=== PATIENT | female | born 1975 | race African-American/Black ===

== ENCOUNTER 2021-08-04 06:07 | Emergency (ER) | payer OTHER, SELFPAY ==
--- NOTE | ~2021-08-04 | US_ITS ---
EXAMINATION: US VENOUS ULTRASOUND WITH DOPPLER LOWER EXTREMITY, LEFT CLINICAL INFORMATION: Pain and swelling COMPARISON: None TECHNIQUE: Ultrasound of the deep veins is performed from the hip to the calf with compression sonography and color and pulse Doppler assessment. Spectral analysis with color-flow imaging is performed. FINDINGS: There is normal venous compression and respiratory variation and augmented flow. The visualized common femoral vein, superficial femoral vein, profunda femoral vein, popliteal vein, and the trifurcation region shows no evidence of deep venous thrombosis. There is a large popliteal fossa cyst and knee joint effusion. US/US venous duplex LE LT IMPRESSION: No acute DVT demonstrated in the left lower extremity. Large popliteal fossa cyst and left knee effusion.
[2021-08-04 06:20] VITALS: BP 198/107; PULSE 102; RESP 22; TEMP 36.7; O2SAT 98; BMI 35.5
--- NOTE | 2021-08-04 06:34 | ED_ITS ---
HPI - Extremity Problem General Chief complaint: Extremity Problem Stated complaint: high gastric levels, history of gout Time Seen by Provider: 08/04/21 06:34 Source: patient Mode of arrival: ambulatory Limitations: no limitations History of Present Illness MD Complaint: extremity pain, joint swelling and joint pain Onset (ago): day(s) (several) Pain Consistency: constant Location: left, knee and other (ankle) Quality: aching and dull Radiation: proximal Relieving factors: immobilization Exacerbating factors: weight bearing and palpation Associated symptoms: denies other symptoms Context: other (hx of gout, recently completed indomethacin treatment for gout) Related Data Previous Rx's Medication Instructions Recorded hydrocodone 5 mg-acetaminophen 325 1 tab PO Q6H PRN #12 tab 08/04/21 mg tablet prednisone 20 mg tablet 40 mg PO DAILY 4 Days #8 tab 08/04/21 Allergies Allergy/AdvReac Type Severity Reaction Status Date / Time No Known Allergies Allergy Verified 08/04/21 06:25 Review of Systems Review of Systems: Constitutional : No Fever, No Chills ENT/Mouth : No Ear Pain, No Hoarseness, No sore throat Eyes: No Eye Pain, No Swelling, No Redness, No Foreign Body Cardiovascular : No Chest Pain, No SOB Respiratory : No Cough, No Dyspnea Gastrointestinal : No Nausea, No Vomiting, No Diarrhea, No abdominal Pain Genitourinary : No Dysuria, No Hematuria Musculoskeletal : positive joint pain, No Myalgias, pos Joint Swelling Skin : No Skin lacerations, No rash Neuro : No Weakness, No Numbness, No Loss of Consciousness, No Dizziness, No Headache Psych : No Anxiety/Panic, No Depression Heme/Lymph: no easy bruising, no Lymphadenopathy Endocrine : No Polyuria, No Polydipsia All other systems reviewed and are negative [facility] Past Medical History Attestation statement: The following information was validated with the patient. Medical History Gout HTN (hypertension) Social History Social History (Updated 08/04/21 @ 06:51 by Karlie Pastor DO) Alcohol intake: never Patient Tobacco Use Status: Never used Tobacco Use of substances other than those prescribed or required for medical reasons: Yes Substance Use Type: Marijuana Advance Directives: No Advance Directives Information Provided: No Patient : No Physical Exam Vital Signs: Vital Signs: Last Vital Signs Temp 98.6 F 08/04/21 07:32 Pulse 73 08/04/21 07:32 Resp 16 08/04/21 07:32 BP 187/104 H 08/04/21 07:32 Pulse Ox 100 08/04/21 07:32 BMI result Body Mass Index 35.5 Appearance: Alert. Oriented X3. No acute distress. Eyes: Pupils equal, round and reactive to light. ENT: Pharynx normal. Neck: Normal inspection. Neck supple. CVS: Normal heart rate and rhythm. Pulses normal. Respiratory: No respiratory distress. Breath sounds normal. Abdomen: Soft and nontender. Skin: Skin warm and dry. Normal skin color. Normal skin turgor. Extremities: L knee mild to moderate effusion leg itself has non pitting edema but some swelling around ankle as well - distal NV intact, no warmth erythema Neuro: Oriented X 3. No motor deficit. No sensory deficit. Course Course Course Narrative: US negative given crutches and ny wrap does not want care for HTN MDM - Extremity (Nontraumatic) MDM Narrative Medical decision making narrative: 46 yo patient with hx of HTN, gout - here with c/o L knee and ankle pain though knee has the effusion her leg itself is mildly swollen will need US to r/o DVT - completed indomethacin which did not help. At this time she will need prednisone given suspected gout. There is no fevers, no erythema, no warmth, can range knee doubt septic joint/cellulitis at this time. Discharge Plan Discharge Clinical Impression: Gout, Effusion of knee, HTN (hypertension) Patient Disposition: Home, Self-Care Instructions: Gout (ED), Swollen Knee Joint (ED), Hypertension (ED) Additional Instructions: return to ED for any worsening symptoms or concerns ny wrap for 5 days, crutches as needed you need to see your doctor next week about your high blood pressure Prescriptions: New hydrocodone-acetaminophen 5-325 mg tablet 1 tab PO Q6H PRN (Reason: pain) Qty: 12 0RF prednisone 20 mg tablet 40 mg PO DAILY 4 Days Qty: 8 0RF Referrals: Rima Espinoza MD [Primary Care Provider] - 3 days Stand Alone Forms: Work/School Release
[2021-08-04 07:32] VITALS: BP 187/104; PULSE 73; RESP 16; TEMP 37; O2SAT 100
[2021-08-04] MEDS: predniSONE 20 MG TABLET 60 MG PO (07:37)
--- NOTE | 2021-08-04 07:54 | PC.NURSE ---
BP 187/104 MD aware. pt states she has had a in the family and is aware of the BP/. DOes not want to treat high BP.
== END 2021-08-04 09:48 | disposition home or self-care (01) ==
PROVIDERS: Emergency Provider Emergency Medicine; PCP Internal Medicine
DX: M10.9 Gout, unspecified (principal); M25.462 Effusion, left knee; R60.0 Localized edema; I10 Essential (primary) hypertension; Z79.899 Other long term (current) drug therapy
CPT/HCPCS: 93971; 99284

== ENCOUNTER 2021-10-08 05:39 | Inpatient (IN) | payer OTHER, SELFPAY ==
--- NOTE | 2021-10-08 | ECG_ITS ---
Test Reason : ? stroke Blood Pressure : / mmHG Vent. Rate : 065 BPM Atrial Rate : 065 BPM P-R Int : 208 ms QRS Dur : 090 ms QT Int : 420 ms P-R-T Axes : 023 -13 -04 degrees QTc Int : 436 ms Normal sinus rhythm Minimal voltage criteria for LVH, may be normal variant ( R in aVL ) Cannot rule out Anterior infarct , age undetermined Abnormal ECG No previous ECGs available Referred By: Generic ED Physician Electronically Signed By:Gurinder Evans
--- NOTE | ~2021-10-08 | CT_ITS ---
EXAMINATION: CT HEAD WITHOUT CONTRAST (STROKE PROTOCOL) CLINICAL INFORMATION: Stroke protocol. COMPARISON: None TECHNIQUE: Contiguous axial imaging was performed from the skull base to vertex without intravenous administration of contrast. This CT examination was performed using dose optimization techniques as appropriate, variously including the following: *Automated exposure control *Adjustment of mA and/or kV according to patient size (this includes techniques or standardized protocols for targeted exams where dose is matched to indication/reason for exam; i.e. extremities or head) *Use of iterative reconstruction technique DLP: 733 mGy-cm FINDINGS: There is no intracranial hemorrhage, hematoma, or extra-axial fluid collection. The ventricles are normal in size. There is no hydrocephalus, edema, or mass effect. The adair-white matter differentiation appears symmetric. There is no acute infarct or mass lesion. The calvarium appears intact. There is no pneumocephalus or orbital emphysema. The visualized sinuses and middle ears and mastoid air cells show no significant mucosal thickening. There are no air-fluid levels. CT/CT head for stroke IMPRESSION: No acute intracranial pathology. This critical result was discussed with Dr Nicola Estes at 10/08/2021 6:25 AM and it was ascertained that the content and urgency of the report was understood at the time of direct communication.
--- NOTE | ~2021-10-08 | MR_ITS ---
EXAMINATION: MRI OF THE BRAIN WITHOUT CONTRAST CLINICAL INFORMATION: Right arm heaviness, off balance. Assess for stroke. COMPARISON: CT scan of the head and CTA of the head and neck earlier 10/08/2020.. TECHNIQUE: MRI of the brain was obtained using routine sequences without contrast. FINDINGS: There is an area of restricted diffusion in the left periventricular white matter, consistent with an acute infarct. There is no evidence of hemorrhagic transformation. This region has mildly increased T2/flair signal. No other acute infarcts are demonstrated. No mass effect or midline shift is seen. The ventricles and sulci are normal in size. There are multiple scattered foci of hyperintense T2 and place signal in the periventricular subcortical white matter, which are nonspecific and may be consistent sequelae of chronic microvascular ischemic disease, vasculitis or migraine. No extra-axial fluid collections are seen. The brainstem and cerebellum are normal. No pathologic magnetic susceptibility artifact is identified on the gradient refocused acquisition. The craniovertebral junction and marrow signal are normal. There is a partially empty sella. The major intracranial flow-voids at the level of the [place] are preserved. The dural venous sinus flow-voids are maintained. The mastoid air cells and paranasal sinuses are well-aerated. MR/MR head/brain wo con IMPRESSION: 1. There is a small area of acute infarction in the left periventricular white matter. There is no evidence of hemorrhagic transformation. 2. There are no masses. There are scattered white matter changes as described above. 3. This critical result was discussed with Nilesh Shaw by telephone on 10/08/2021 at 12:40 PM and it was ascertained that the content and urgency of the report was understood at the time of direct communication.
--- NOTE | ~2021-10-08 | CT_ITS ---
EXAMINATION: CTA NECK WITH CONTRAST (STROKE) CTA BRAIN WITH CONTRAST (STROKE) CLINICAL INFORMATION: Right sided weakness. COMPARISON: None TECHNIQUE: Test bolus sequences followed by intravenous administration 100 mL of Omnipaque 300 intravenous contrast. Helical imaging was performed in the axial plane from the mediastinum to the skull vertex. Delayed postcontrast imaging of the head was also performed. The data was processed at the apparatus engineering technologist's workstation for generation of MIP sequences. Three-dimensional volume rendered reformatted images were also generated at an offline 3-D workstation. This CT examination was performed using dose optimization techniques as appropriate, variously including the following: *Automated exposure control *Adjustment of mA and/or kV according to patient size (this includes techniques or standardized protocols for targeted exams where dose is matched to indication/reason for exam; i.e. extremities or head) *Use of iterative reconstruction technique The degree of stenosis determined by NASCET criteria. DLP: 1537 mGy-cm FINDINGS: SOFT TISSUES AND LUNG APICES: No overt abnormality is appreciated. CTA NECK: The aortic arch has a classic configuration and the major arch vessel origins are non-stenotic. The vertebral arteries are co-dominant and both vertebral origins are widely patent. Both common carotid arteries are normal in course and caliber. The left internal carotid artery demonstrates mild atherosclerotic plaque without significant stenosis. CTA HEAD: There is normal opacification of the major intracranial vessels. No acute proximal large vessel occlusion, focal flow-limiting stenosis, or saccular intracranial aneurysm is identified. No abnormal parenchymal enhancement or regional oligemia is visualized. 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 HEAD (delayed): No intracranial mass, intercerebral edema, hemorrhage, or midline shift is evident. The ventricles and sulci are stable in size and configuration. No extra-axial collections are appreciated. No pathologic intracranial enhancement. Dural sinuses are patent. The paranasal sinuses are well-aerated and clear. CT/CT angio head neck stroke IMPRESSION: No hemodynamically significant stenosis or large vessel occlusion within the intracranial or extracranial arterial vasculature. This critical result was discussed with Dr Nicola Estes at 10/08/2021 6:25 AM and it was ascertained that the content and urgency of the report was understood at the time of direct communication.
[2021-10-08 05:43] VITALS: BP 183/109; BP 200/110; PULSE 64; PULSE 78; RESP 16; TEMP 37; O2SAT 100; O2SAT 98; BMI 36.3
--- NOTE | 2021-10-08 05:51 | ED_ITS ---
HPI - General Adult General Chief complaint: Stroke Stated complaint: arm heaviness, unsteady gait, symptoms started 11p Time Seen by Provider: 10/08/21 05:48 Source: patient Mode of arrival: EMS Limitations: no limitations History of Present Illness HPI narrative: This is a 46-year-old female with history of hypertension, not currently on medications for blood pressure, who last night around 11:00 o'clock had woken up and felt like there was slight weakness and numbness in her right arm as though she had slept on it. This morning the patient continues to have the symptoms and also noted that when she walks she felt slightly off balance. She denies a headache. She denies any visual changes. She has not had any trouble speaking. She denies any chest pain or shortness of breath. She does feel slight t ingling as in the right side of her face and feels that her right leg is a little weak. Related Data Previous Rx's Medication Instructions Recorded hydrocodone 5 mg-acetaminophen 325 1 tab PO Q6H PRN pain #12 tabs 08/04/21 mg tablet prednisone 20 mg tablet 40 mg PO DAILY 4 days #8 tabs 08/04/21 Allergies Allergy/AdvReac Type Severity Reaction Status Date / Time No Known Allergies Allergy Verified 08/04/21 06:25 Review of Systems Review of Systems: Yes all other systems are reviewed and are negative Constitutional: Constitutional: Reports as per HPI, Denies fever(s) and Denies headache(s) Eyes: Eyes: Reports as per HPI and Reports no additional eye complaints ENT: Reports system reviewed and no additional complaints, except as documented, Reports as per HPI, Denies headache(s), Denies nasal congestion, Denies nasal discharge and Denies sore throat Cardiovascular: Cardiovascular: Reports as per HPI, Denies chest pain and Denies dyspnea Respiratory: Respiratory: Reports as per HPI, Denies cough and Denies dyspnea Gastrointestinal: Gastrointestinal: Reports as per HPI, Denies abdominal pain, Denies diarrhea and Denies vomiting Genitourinary: Genitourinary: Reports as per HPI, Denies hematuria, Denies urinary frequency and Denies dysuria Musculoskeletal: Musculoskeletal: Reports no additional musculoskeletal complaints and Reports numbness Integumentary/Breasts: Skin/Breast: Reports as per HPI and Denies rash Neurologic: Reports as per HPI, Denies headache(s), Reports focal weakness and Reports numbness Psychiatric: Psychiatric: Reports no additional psychiatric complaints and Reports as per HPI Endocrine: Endocrine: Reports no additional endocrine complaints and Reports as per HPI Hematologic/Lymphatic: Hematologic/Lymphatic: Reports no additional hematologic/lymphatic complaints, Reports as per HPI and Reports other (No peripheral edema) [facility] Past Medical History Medical History Gout HTN (hypertension) Social History Social History (Updated 08/04/21 @ 06:51 by Karlie Pastor DO) Alcohol intake: never Patient Tobacco Use Status: Never used Tobacco Substance Use Type: Marijuana Advance Directives: No Advance Directives Information Provided: Yes Physical Exam ED Vital Signs: Vital Signs - 24 hr 10/08/21 05:43 Temperature 98.6 F Pulse Rate 64 Respiratory Rate 16 Blood Pressure 183/109 H Pulse Oximetry 100 Oxygen Delivery Method Room Air BMI result Body Mass Index 36.3 Const General: no acute distress Orientation/consciousness: patient oriented x3 HENMT Head: Yes normal to inspection General nose exam: Normal external nose present Mouth: moist mucous membranes Throat: Yes posterior oropharynx normal, Yes tonsils normal and Yes uvula midline Eyes Eyelids: Yes eyelids normal Conjunctivae: conjunctivae normal Pupils: Equal, round and reactive pupils present Neck Neck: Yes supple Resp Effort & Inspection: normal respiratory effort Auscultation: clear to auscultation bilaterally Cardio Rate: regular rate Rhythm: regular rhythm Heart sounds: S1 normal heart sound present, S2 normal heart sound present, no gallops, no murmurs and no rubs GI Inspection: No distended Palpation (GI): Soft to palpation and nontender Auscultation: normal bowel sounds Skin General skin exam: other (Warm and dry) Neuro Other: No facial droop or other cranial nerve deficit evident. Slight pronator drift side-arm. Decreased rapid alternating movements right hand. Slight weakness of heel to [place] on the right compared to the left. Visual dumas normal. Extr aocular motions normal. General: patient oriented x3 and CN's II-XI intact bilaterally Cranial nerves: Yes CN's II-XII intact bilaterally and Yes Equal, round and reactive pupils present Extrem General: Yes no pedal edema Psych Affect: normal affect Attitude: cooperative Medical Decision Making [facility] Narrative Medical decision making narrative: Patient with right-sided weakness and numbness, especially in her right arm. Subtle deficits noted on exam. Preliminary read of the CT brain was negative. CTA pending. Patient has been given labetalol 10 mg IV for her hypertension. Patient is being signed out to Dr. Santana at 06:40 Lab Data Lab results reviewed: Yes I reviewed the patient's lab results. Result diagrams: 10/08/21 05:56 10/08/21 05:56 Labs: Lab Results 10/08/21 10/08/21 10/08/21 Range/Units 05:48 05:56 05:56 WBC 8.7 (4.8-10.8) X10*3/uL RBC 4.24 (4.20-5.50) X10*6/uL Hgb 12.0 (12.0-16.0) g/dl Hct 37.6 (37.0-47.0) % MCV 88.7 (80.0-98.0) fL MCH 28.3 (27.0-33.0) pg MCHC 31.9 (31.0-35.0) g/dl RDW 14.2 (11.0-16.0) % Plt Count 325 (160-400) X10*3/uL MPV 9.4 (9.4-12.3) fL Immature Gran % (Auto) 0.1 (0.0-0.4) % Neut % (Auto) 53.2 (45-73) % Lymph % (Auto) 40.7 H (20-40) % [place] % (Auto) 3.7 (2-11) % Eos % (Auto) 1.8 (0-4) % Baso % (Auto) 0.5 (0-2) % Lymph # (Auto) 3.5 (1.2-4.9) X10*3/uL [place] # (Auto) 0.3 (0.1-1.2) X10*3/uL Eos # (Auto) 0.2 (0.0-0.4) X10*3/uL Baso # (Auto) 0.0 (0.0-0.2) X10*3/uL Abs Immat Gran (auto) 0.01 (0.00-0.03) X10*3/uL Absolute Neuts (auto) 4.6 (2.0-8.3) x10*3/uL Absolute Nucleated RBC 0.000 (0.0-0.012) X10*3/uL Nucleated RBC % (auto) 0.0 (0.0-0.2) /100WBC PT 10.6 (9.9-13.0) SEC Whole Blood PT 11.5 (11.1-13.5) sec INR 0.9 (0.9-1.1) Whole Blood INR 1.0 (0.9-1.1) Sodium (135-145) mmol/L Potassium (3.3-5.1) mmol/L Chloride (96-108) mmol/L Carbon Dioxide (22-29) mmol/L Anion Gap (12-20) BUN (9-16) mg/dL Creatinine (0.5-1.4) mg/dL Estim Creat Clear Calc Estimated GFR Random Glucose (60-115) mg/dL Calcium (8.4-10.2) mg/dL Total Bilirubin (0.0-1.0) mg/dL AST (5-31) U/L ALT (0-31) U/L Alkaline Phosphatase (39-117) U/L Troponin I High Sens (<3.5-17.0) ng/L Total Protein (6.5-8.0) g/dL Albumin (3.5-5.0) g/dL COVID-19 ([facility]) (Negative) COVID-19 Clin Com 10/08/21 10/08/21 10/08/21 Range/Units 05:56 05:56 05:56 WBC (4.8-10.8) X10*3/uL RBC (4.20-5.50) X10*6/uL Hgb (12.0-16.0) g/dl Hct (37.0-47.0) % MCV (80.0-98.0) fL MCH (27.0-33.0) pg MCHC (31.0-35.0) g/dl RDW (11.0-16.0) % Plt Count (160-400) X10*3/uL MPV (9.4-12.3) fL Immature Gran % (Auto) (0.0-0.4) % Neut % (Auto) (45-73) % Lymph % (Auto) (20-40) % [place] % (Auto) (2-11) % Eos % (Auto) (0-4) % Baso % (Auto) (0-2) % Lymph # (Auto) (1.2-4.9) X10*3/uL [place] # (Auto) (0.1-1.2) X10*3/uL Eos # (Auto) (0.0-0.4) X10*3/uL Baso # (Auto) (0.0-0.2) X10*3/uL Abs Immat Gran (auto) (0.00-0.03) X10*3/uL Absolute Neuts (auto) (2.0-8.3) x10*3/uL Absolute Nucleated RBC (0.0-0.012) X10*3/uL Nucleated RBC % (auto) (0.0-0.2) /100WBC PT (9.9-13.0) SEC Whole Blood PT (11.1-13.5) sec INR (0.9-1.1) Whole Blood INR (0.9-1.1) Sodium 141 (135-145) mmol/L Potassium 4.2 (3.3-5.1) mmol/L Chloride 112 H (96-108) mmol/L Carbon Dioxide 21 L (22-29) mmol/L Anion Gap 12 (12-20) BUN 21 H (9-16) mg/dL Creatinine 1.02 (0.5-1.4) mg/dL Estim Creat Clear Calc 84.0 Estimated GFR 59 Random Glucose 105 (60-115) mg/dL Calcium 9.0 (8.4-10.2) mg/dL Total Bilirubin 0.4 (0.0-1.0) mg/dL AST 19 (5-31) U/L ALT 13 (0-31) U/L Alkaline Phosphatase 84 (39-117) U/L Troponin I High Sens < 3.5 (<3.5-17.0) ng/L Total Protein 7.7 (6.5-8.0) g/dL Albumin 4.0 (3.5-5.0) g/dL COVID-19 ([facility]) Negative (Negative) COVID-19 Clin Com See Note ECG Data Attestation: I personally reviewed and interpreted this ECG as follows: Interpretation: Sinus rhythm with a rate of 65. No ST elevation or depression. No ectopy. Normal QRS axis.. R wave progression delayed. LVH present Discharge Plan Discharge Clinical Impression: Hypertensive urgency, Weakness of right upper extremity Patient Disposition: Still a Patient Prescriptions: No Action hydrocodone-acetaminophen 5-325 mg tablet 1 tab PO Q6H PRN (Reason: pain) Qty: 12 0RF prednisone 20 mg tablet 40 mg PO DAILY 4 Days Qty: 8 0RF
[2021-10-08 05:52] LABS: Prothrombin Time Whole Bld POC 11.5 sec (11.1-13.5)
[2021-10-08 06:01] LABS: Basophils Percent Auto 0.5 % (0-2); Eosinophils Absolute Auto 0.2 X10*3/uL (0.0-0.4); Eosinophils Percent Auto 1.8 % (0-4); Hematocrit 37.6 % (37.0-47.0); Imm Gran Abs Auto 0.01 X10*3/uL (0.00-0.03); Imm Gran Pct Auto 0.1 % (0.0-0.4); Lymphocytes Absolute Auto 3.5 X10*3/uL (1.2-4.9); Lymphocytes Percent Auto 40.7 % (20-40); MANUAL DIFF FLAG NO; Mean Corpuscular HGB Conc 31.9 g/dl (31.0-35.0); Mean Corpuscular Hemoglobin 28.3 pg (27.0-33.0); Mean Corpuscular Volume 88.7 fL (80.0-98.0); Mean Platelet Volume 9.4 fL (9.4-12.3); Monocytes Absolute Auto 0.3 X10*3/uL (0.1-1.2); Monocytes Percent Auto 3.7 % (2-11); Neutrophils Absolute Auto 4.6 x10*3/uL (2.0-8.3); Neutrophils Percent Auto 53.2 % (45-73); Platelet Count 325 X10*3/uL (160-400); Red Blood Count 4.24 X10*6/uL (4.20-5.50); Red Cell Distribution Width 14.2 % (11.0-16.0); White Blood Count 8.7 X10*3/uL (4.8-10.8)
[2021-10-08 06:06] LABS: INTERNATIONAL NORM RATIO 0.9 (0.9-1.1); Prothrombin Time 10.6 SEC (9.9-13.0)
[2021-10-08 06:20] LABS: COVID-19 Test Negative (Negative)
[2021-10-08 06:21] LABS: Alanine Aminotransferase 13 U/L (0-31); Alkaline Phosphatase 84 U/L (39-117); Anion Gap 12 (12-20); Aspartate Amino Transferase 19 U/L (5-31); Bilirubin Total 0.4 mg/dL (0.0-1.0); Blood Urea Nitrogen 21 mg/dL (9-16); Carbon Dioxide 21 mmol/L (22-29); Chloride 112 mmol/L (96-108); Estimated Glomerular Filt Rate 59; Glucose Random 105 mg/dL (60-115); Potassium 4.2 mmol/L (3.3-5.1); Sodium 141 mmol/L (135-145); Total Protein 7.7 g/dL (6.5-8.0); Troponin-I High Sensitivity < 3.5 ng/L (<3.5-17.0)
[2021-10-08] MEDS: iohexoL 350 MG/ML 100 ML INFUS..BTL IV (06:33)
[2021-10-08 07:14] VITALS: BP 166/89; PULSE 53; RESP 18
[2021-10-08 07:16] LABS: Glucose, Whole Blood 101 mg/dL (60-115)
[2021-10-08] MEDS: Aspirin 81 MG TAB.CHEW 324 MG PO (07:53)
--- NOTE | 2021-10-08 08:58 | PHA.MEDREC ---
Pharmacy Consult ? Medication Reconciliation Pharmacy has completed the medication reconciliation.
--- NOTE | 2021-10-08 10:20 | PM.IMHP ---
History of Present Illness Date of Service: 10/08/21 Chief Complaint: RLE heaviness Ms Love is a 46 year-old R-hand dominant woman with history of hypertension and gout, managed with lifestyle changes due to past intolerance of at least 3 antihypertensives, who was in her usual state of health until she woke up to go to the bathroom at 23:00 last night and noted heaviness and awkwardness of her R hand. Some numbness of the R hand as well. No facial droop or swallowing difficulty. No language difficulty. No leg weakness. No headache. She also noted balance problems. She woke up this morning with the same symptoms and called EMS to transport her to the ED. She took edible THC yesterday, unknown dosage, and wonders if her symptoms are due to that, since she usually takes THC via inhalation. The R hand symptoms and balance problems are improving. Family history is notable for her mother who had HTN and from a CVA last year. She has lost at least 100 lb over the last year through diet and exercise. In the ED, noncontrast CT was negative for bleed or stroke, and CTA of the head and neck was negative for large-vessel occlusion. EKG showed 1st degree AVB and NSR. She was noted to have dysmetria and dysdiadochokinesia. She was given 324mg of ASA. She also presented with BP of 198/107 and was given 10mg of IV labetalol. Review of Systems Review of Systems: Yes all other systems are reviewed and are negative [facility] Medical History Gout HTN (hypertension) Family History (Updated 10/08/21 @ 10:21 by Zafar Perez MD) Mother Hypertension Stroke Surgical History (Updated 10/08/21 @ 10:21 by Zafar Perez MD) History of hysterectomy Social History Alcohol intake: never Patient Tobacco Use Status: Never used Tobacco Use of substances other than those prescribed or required for medical reasons: Yes Substance Use Type: Marijuana Advance Directives: No Advance Directives Information Provided: Yes Meds Allergies Allergy/AdvReac Type Severity Reaction Status Date / Time No Known Allergies Allergy Verified 08/04/21 06:25 Active Medications: Current Medications Calcium Carbonate (Calcium Carbonate 500 Mg Tablet) 500 mg PO BID [facility] Multivitamins/Vitamin C (Multivitamin Tablet) 1 tab PO DAILY [facility] Home Medications Medication Instructions Recorded Confirmed Last Taken Type Lactobacillus acidophilus 10,000 mmu cells PO DAILY 10/08/21 10/08/21 Unknown History (Acidophilus) calcium carbonate 500 mg calcium 500 mg PO BID 10/08/21 10/08/21 Unknown History (1,250 mg) tablet multivitamin 1 tab PO DAILY 10/08/21 10/08/21 Unknown History Physical Exam Vital Signs and Narrative: Vital Signs: Last Vital Signs Temp 98.6 F 10/08/21 05:43 Pulse 53 10/08/21 07:14 Resp 18 10/08/21 07:14 BP 166/89 H 10/08/21 07:14 Pulse Ox 100 10/08/21 05:43 O2 Del Method 10/08/21 05:43 BMI result Body Mass Index 36.3 Gen: in no acute distress HEENT: sclera anicteric, moist mucus membranes Neck: supple, no carotid bruits Lungs: clear to auscultation bilaterally Heart: regular, bradycardic, no murmurs Abd: soft, non-tender, non-distended Ext: no edema Skin: warm/well-perfused Neuro: alert and oriented x3, very mild R-sided dysmetria + dysdiadochokinesia, no leg weakness, no facial droop Psych: appropriate affect Results Labs CBC and Chem 7: 10/08/21 05:56 10/08/21 05:56 Labs: Laboratory Results - last 24 hr 10/08/21 10/08/21 10/08/21 05:48 05:48 05:56 MCV 88.7 MCH 28.3 MCHC 31.9 RDW 14.2 Plt Count 325 MPV 9.4 Immature Gran % (Auto) 0.1 Neut % (Auto) 53.2 Lymph % (Auto) 40.7 H [place] % (Auto) 3.7 Eos % (Auto) 1.8 Baso % (Auto) 0.5 Lymph # (Auto) 3.5 [place] # (Auto) 0.3 Eos # (Auto) 0.2 Baso # (Auto) 0.0 Abs Immat Gran (auto) 0.01 Absolute Neuts (auto) 4.6 Absolute Nucleated RBC 0.000 Nucleated RBC % (auto) 0.0 PT Whole Blood PT 11.5 INR Whole Blood INR 1.0 Anion Gap Estim Creat Clear Calc Estimated GFR POC Glucose 101 Random Glucose Calcium Total Bilirubin AST ALT Alkaline Phosphatase Troponin I High Sens Total Protein Albumin COVID-19 ([facility]) COVID-19 Clin Com 10/08/21 10/08/21 10/08/21 05:56 05:56 05:56 MCV MCH MCHC RDW Plt Count MPV Immature Gran % (Auto) Neut % (Auto) Lymph % (Auto) [place] % (Auto) Eos % (Auto) Baso % (Auto) Lymph # (Auto) [place] # (Auto) Eos # (Auto) Baso # (Auto) Abs Immat Gran (auto) Absolute Neuts (auto) Absolute Nucleated RBC Nucleated RBC % (auto) PT 10.6 Whole Blood PT INR 0.9 Whole Blood INR Anion Gap 12 Estim Creat Clear Calc 84.0 Estimated GFR 59 POC Glucose Random Glucose 105 Calcium 9.0 Total Bilirubin 0.4 AST 19 ALT 13 Alkaline Phosphatase 84 Troponin I High Sens < 3.5 Total Protein 7.7 Albumin 4.0 COVID-19 ([facility]) COVID-19 Clin Com 10/08/21 05:56 MCV MCH MCHC RDW Plt Count MPV Immature Gran % (Auto) Neut % (Auto) Lymph % (Auto) [place] % (Auto) Eos % (Auto) Baso % (Auto) Lymph # (Auto) [place] # (Auto) Eos # (Auto) Baso # (Auto) Abs Immat Gran (auto) Absolute Neuts (auto) Absolute Nucleated RBC Nucleated RBC % (auto) PT Whole Blood PT INR Whole Blood INR Anion Gap Estim Creat Clear Calc Estimated GFR POC Glucose Random Glucose Calcium Total Bilirubin AST ALT Alkaline Phosphatase Troponin I High Sens Total Protein Albumin COVID-19 ([facility]) Negative COVID-19 Clin Com See Note Imaging Radiologist's Impressions: Impressions Head CT 10/08/21 06:13 IMPRESSION: No acute intracranial pathology. This critical result was discussed with Dr Nicola Estes at 10/08/2021 6:25 AM and it was ascertained that the content and urgency of the report was understood at the time of direct communication. Head/Neck CTA 10/08/21 06:32 IMPRESSION: No hemodynamically significant stenosis or large vessel occlusion within the intracranial or extracranial arterial vasculature. This critical result was discussed with Dr Nicola Estes at 10/08/2021 6:25 AM and it was ascertained that the content and urgency of the report was understood at the time of direct communication. Assessment and Plan (1) Weakness of right upper extremity: Status: Acute (2) Hypertensive urgency: Status: Acute Plan 46yo F with obesity, HTN, and gout, not on medications, presenting the morning after acute onset of R hand weakness/clumsiness and balance problems. Found to be hypertensive and to have very mild dysmetria and dysdiadochokinesia # possible CVA - concern for cerebellar CVA. [place] [facility] [place], monitor on telemetry, check TTE + bubble, and check MRI. ASA for secondary prevention. check lipids, A1c. consider high-intensity statin if CVA diagnosed. Neuro consult. PT/OT consults. # HTN urgency - in case of acute CVA, will not lower BP further unless BP >220/110. # obesity - has lost weight through lifestyle changes and should be encouraged VTE prophylaxis: LMWH code status: full Quality Stroke Does the patient have a stroke diagnosis?: Yes Reason for No Anti-thrombotic by Day Two: N/A - Med Ordered VTE Prior VTE?: No VTE Risk Level:: Medical - moderate - high VTE Device Contraindication: N/A - Device Ordered VTE Drug Contraindication: N/A - Med Ordered
--- NOTE | 2021-10-08 11:33 | P.CNNE_ITS ---
History of Present Illness Data of Consult Service Date: 10/08/21 Primary Care Provider: Unknown Physician HPI Reason for consult: Right-sided numbness 46 years old woman who came to hospital with new onset of right-sided numbness. She said that she was fine the night before except that she took some ?edibles . She woke up and found that her right arm and hand and ?whole right side? was numb or weak. There was no headache. When I examine her she still was complaining of right hand and arm numbness. She said that arm and hand were slower than the left side. There was no tingling or pain. Review of Systems Review of Systems: No recent cold or flu-like illness or trauma. [facility] Past Medical History Medical History Gout HTN (hypertension) Family History Family History (Updated 10/08/21 @ 10:21 by Zafar Perez MD) Mother Hypertension Stroke Surgical History Surgical History (Updated 10/08/21 @ 10:21 by Zafar Perez MD) History of hysterectomy Social History Social History Alcohol intake: never Patient Tobacco Use Status: Never used Tobacco Use of substances other than those prescribed or required for medical reasons: Yes Substance Use Type: Marijuana Advance Directives: No Advance Directives Information Provided: Yes Meds Allergies Allergy/AdvReac Type Severity Reaction Status Date / Time No Known Allergies Allergy Verified 08/04/21 06:25 Active Medications: Current Medications Acetaminophen (Acetaminophen 325 Mg Tablet) 650 mg PO Q6H PRN PRN Reason: Pain, Mild (Pain Scale 1-3) Aspirin (Aspirin 81 Mg Tab.Chew) 81 mg PO DAILY [facility] Calcium Carbonate (Calcium Carbonate 500 Mg Tablet) 500 mg PO BID [facility] Enoxaparin Sodium (Enoxaparin Sodium 40 Mg/0.4 Ml Syringe) 40 mg SUBCUT Q24H [facility] Multivitamins/Vitamin C (Multivitamin Tablet) 1 tab PO DAILY [facility] Ondansetron HCl (Ondansetron Hcl 4 Mg/2 Ml Vial) 4 mg IVPUSH Q8H PRN PRN Reason: Nausea and Vomiting Sodium Chloride (0.9 % Sodium Chloride Flush 3 Ml Syringe) 3 ml IVFLUSH QSHIFT [facility] Home Medications Medication Instructions Recorded Confirmed Last Taken Type Lactobacillus acidophilus 10,000 mmu cells PO DAILY 10/08/21 10/08/21 Unknown History (Acidophilus) calcium carbonate 500 mg calcium 500 mg PO BID 10/08/21 10/08/21 Unknown History (1,250 mg) tablet multivitamin 1 tab PO DAILY 10/08/21 10/08/21 Unknown History Physical Exam Vital Signs: Vital Signs: Last Vital Signs Temp 98.6 F 10/08/21 05:43 Pulse 53 10/08/21 07:14 Resp 18 10/08/21 07:14 BP 166/89 H 10/08/21 07:14 Pulse Ox 100 10/08/21 05:43 O2 Del Method 10/08/21 05:43 BMI result Body Mass Index 36.3 Neuro: Other: She was alert and awake with normal spontaneity of speech fluency comprehension and affect. She was moderately obese. Face was symmetrical. Pupils were equal and reactive to light. Extraocular muscles were intact. Visual dumas were full to threat. There was mild right pronator drift. [id number] testing was slightly slower with right hand. Deep tendon reflexes were trace to absent with flexor plantars. Lkoo-uj-[id number] testing was okay. Speech was normal Results Labs CBC & Chem 7: 10/08/21 05:56 10/08/21 05:56 Labs: Short CBC 10/08/21 Range/Units 05:56 WBC 8.7 (4.8-10.8) X10*3/uL Hgb 12.0 (12.0-16.0) g/dl Hct 37.6 (37.0-47.0) % Plt Count 325 (160-400) X10*3/uL BMP 10/08/21 05:56 Sodium 141 Potassium 4.2 Chloride 112 H Carbon Dioxide 21 L BUN 21 H Creatinine 1.02 Calcium 9.0 Liver Function 10/08/21 Range/Units 05:56 Total Bilirubin 0.4 (0.0-1.0) mg/dL AST 19 (5-31) U/L ALT 13 (0-31) U/L Alkaline Phosphatase 84 (39-117) U/L Albumin 4.0 (3.5-5.0) g/dL CT and CTA of brain and neck did not reveal any significant abnormality. Assessment and Plan (1) Weakness of right upper extremity: Status: Acute Probably a small ischemic infarction of brain related to hypertension. Her main complaint was right-sided numbness or weakness. My recommendation is to obtain a noncontrast MRI of brain. Also recommended is baby aspirin daily and blood pressure control with investigations for other vascular risk factors including hyperlipidemia. I also recommend doing a formal tox screen. Procedures Date of Service Date of Service: 10/08/21
[2021-10-08 12:59] VITALS: BP 159/84; PULSE 58; RESP 14; TEMP 37; O2SAT 98
[2021-10-08] MEDS: Enoxaparin Sodium 40 MG/0.4 ML SYRINGE SUBCUT (13:00)
[2021-10-08 16:25] VITALS: BP 163/97; PULSE 79; RESP 16
[2021-10-08] MEDS: 0.9 % Sodium Chloride Flush 3 ML SYRINGE IVFLUSH ×2 (16:27→20:28)
[2021-10-08 19:07] VITALS: BP 153/82; PULSE 56; RESP 19; O2SAT 98
[2021-10-08] MEDS: Atorvastatin Calcium 40 MG TABLET PO (20:04)
[2021-10-08 20:29] VITALS: BMI 36.9
[2021-10-09] VITALS: BP 176/84; PULSE 47; RESP 18; TEMP 36.7; O2SAT 100
[2021-10-09 03:51] VITALS: BP 176/93; PULSE 64; RESP 18; TEMP 36.3; O2SAT 99
[2021-10-09 06:56] LABS: Estimated Average Glucose 97 mg/dL; Hemoglobin A1C 99.5568 umol/L
--- NOTE | 2021-10-09 07:00 | CA_ITS ---
Transthoracic Echocardiogram Patient (Last, First, Middle): Carole Love, Gender: Female Date of : 1975 Age: 46 Procedure Date: 10/09/2021 Procedure Type: Transthoracic Echocardiogram Location: [facility] Height: 167.64 cm Weight: 103.87 kg BSA: 2.12 m2 Heart Rate: bpm BP: 176 / 93 mmHg Trolley Collector: DEMAR Zheng MD: Zafar Perez MD Retail Bakery Manager: Raman Santoyo MD Symptoms: CVA Study Quality: Fair ECG Rhythm: Sinus Conclusions: - 1. Normal LV systolic function with mild LVH with impaired relaxation filling pattern 2. Trivial aortic regurgitation and mild mitral regurgitation 3. No evidence of intracardiac shunting 4. Normal RV systolic pressure 5. Moderate atherosclerotic changes in the ascending and descending thoracic aorta noted 6. No gross pericardial effusion Findings Left Ventricle Normal left ventricular size and systolic function. There is mildly increased left ventricular wall thickness. The visually estimated ejection fraction is between 60-65%. Spectral Doppler is indicative of an impaired relaxation filling pattern. E/E prime ratio is between 8 and 15 consistent with indeterminate filling pressures. Right Ventricle Normal right ventricular cavity size and systolic function. Atria The left atrium is likely dilated. There is no evidence of interatrial shunt by agitated saline. The right atrium is normal in size. Aortic Valve There is mild calcification of the aortic valve. There is no aortic valve stenosis. There is trace (trivial) aortic valve regurgitation. Mitral Valve There is mild anterior and posterior mitral leaflet thickening. There is mild mitral valve regurgitation. There is no mitral valve stenosis. Pulmonic Valve The pulmonic valve was not well visualized. Tricuspid Valve Likely normal tricuspid valve structure and function. There is trace tricuspid valve regurgitation. The right ventricular systolic pressure is normal. The right ventricular systolic pressure is 27 mmHg. Normal right atrial pressure. There is no evidence of pulmonary hypertension. Great Vessels All visible segments of the aorta are normal in size. The pulmonary artery was not well visualized. Moderate plaque is seen in the sino tubular ridge and descending thoracic aorta. Venous The inferior vena cava is normal in size and collapses greater than 50% with inspiration. Pericardium/Pleural There is no evidence of pericardial effusion. Prior Study Comparison No prior study available for comparison. Measurements 2D Linear Measurements IVSd: 1.30 0.6-0.9/0.6-1.0 cm LVIDd: 4.15 3.9-5.3/4.2-5.9 cm LVIDd Index: 1.96 2.4-3.2/2.2-3.1 cm/m2 LVIDs: 2.74 2.0-3.6 cm LVPWd: 1.22 0.7-1.1 cm LA Diam: 3.80 2.7-3.8/3.0-4.0 cm LAIDs Index: 1.79 1.5-2.3 cm/m2 LV Mass: 234.28 67-162/88-224 g LV Mass Index: 110.51 43-95/49-115 g/m2 LVOT Diam: 2.20 3.0+(-)1.3 cm 2D Systolic Function EF 4C: 60.30 >55% EF 2C: 62.30 >55% EF BiP: 60.60 >55% Mitral Valve MV Pk E: 0.70 MV PK A: 0.93 MV Decel Time: 278.00 E/A: 0.70 E'Lateral: 8.27 E'Medial: 5.87 E/E' Med: 11.90 E/E' Lat: 8.40 PHT: 81.00 MVA PHT: 2.72 Decel Walsh: 2.51 Aortic Valve AoV Pk Jorge: 1.33 AoV Mn Jorge: 0.95 AoV VTI: 0.32 AoV Pk Grad: 7.00 Aov Mn Grad: 4.00 RAGHU Cont.VTI: 3.44 LVOT LVOT Pk Jorge: 1.03 LVOT Mn Jorge: 0.77 LVOT VTI: 0.29 LVOT Pk Grad: 4.00 LVOT Mn Grad: 3.00 LVOT Diam: 2.20 LVOT Area: 3.80 Diastolic Function MV Pk E: 0.70 MV Pk A: 0.93 E/A: 0.70 E'Medial: 5.87 E/E' Med: 11.90 E' Laterial: 8.27 E/E' Lat: 8.40 Right Ventricle TAPSE (mm): 21.60 TVS' Jorge: 13.60 Tricuspid Valve TR Pk Jorge: 2.47 TR Pk Grad: 24.00 RA Press: 3.00 RVSP: 27.00 Great Vessels Aorta Sinus of Valsalva: 3.13 2.0-3.[address] Ridge: 2.85 1.7-3.4 cm Ao Asc: 3.60 2.1-3.4 cm Ao Arch: 3.10 Updated in Other Vendor System with Status of Final Raman Santoyo MD electronically signed on 10/09/2021 3:49:11 PM with status of Final
[2021-10-09 07:01] LABS: Cholesterol 212 mg/dL; HDL Cholesterol 57 mg/dL; LDL Cholesterol Calculated 142 mg/dl; Triglycerides 68 mg/dL
[2021-10-09] MEDS: 0.9 % Sodium Chloride Flush 3 ML SYRINGE IVFLUSH (07:31)
[2021-10-09] MEDS: Multivitamin TABLET 1 TAB PO (07:31)
[2021-10-09] MEDS: Aspirin 81 MG TAB.CHEW PO (07:31)
[2021-10-09 08:00] VITALS: BP 200/95; PULSE 53; RESP 19; TEMP 36.6; O2SAT 99
[2021-10-09 08:29] VITALS: BP 200/95; PULSE 53; O2SAT 99
[2021-10-09 08:46] LABS: Reflex LDLD? No
--- NOTE | 2021-10-09 09:42 | PM.NEUROCN ---
History of Present Illness Data of Consult Service Date: 10/09/21 Primary Care Provider: Unknown Physician HPI Reason for consult: Stroke 46 years old woman who presented with new onset of right-sided numbness. [facility] Past Medical History Medical History (Updated 10/09/21 @ 09:43 by Eva Abad MD) Gout HTN (hypertension) Family History Family History (Updated 10/08/21 @ 10:21 by Zafar Perez MD) Mother Hypertension Stroke Surgical History Surgical History History of hysterectomy Social History Social History Alcohol intake: never Patient Tobacco Use Status: Never used Tobacco Use of substances other than those prescribed or required for medical reasons: Yes Substance Use Type: Marijuana Advance Directives: No Advance Directives Information Provided: Yes Meds Allergies Allergy/AdvReac Type Severity Reaction Status Date / Time No Known Allergies Allergy Verified 08/04/21 06:25 Active Medications: Current Medications Acetaminophen (Acetaminophen 325 Mg Tablet) 650 mg PO Q6H PRN PRN Reason: Pain, Mild (Pain Scale 1-3) Aspirin (Aspirin 81 Mg Tab.Chew) 81 mg PO DAILY [facility] Last Admin: 10/09/21 07:31 Dose: 81 mg Atorvastatin Calcium (Atorvastatin Calcium 40 Mg Tablet) 40 mg PO BEDTIME [facility] Last Admin: 10/08/21 20:04 Dose: 40 mg Calcium Carbonate (Calcium Carbonate 500 Mg Tablet) 500 mg PO BID [facility] Last Admin: 10/09/21 07:31 Dose: 500 mg Enoxaparin Sodium (Enoxaparin Sodium 40 Mg/0.4 Ml Syringe) 40 mg SUBCUT Q24H [facility] Last Admin: 10/08/21 13:00 Dose: 40 mg Multivitamins/Vitamin C (Multivitamin Tablet) 1 tab PO DAILY [facility] Last Admin: 10/09/21 07:31 Dose: 1 tab Ondansetron HCl (Ondansetron Hcl 4 Mg/2 Ml Vial) 4 mg IVPUSH Q8H PRN PRN Reason: Nausea and Vomiting Sodium Chloride (0.9 % Sodium Chloride Flush 3 Ml Syringe) 3 ml IVFLUSH QSHIFT [facility] Last Admin: 10/09/21 07:31 Dose: 3 ml Home Medications Medication Instructions Recorded Confirmed Last Taken Type Lactobacillus acidophilus 10,000 mmu cells PO DAILY 10/08/21 10/08/21 Unknown History (Acidophilus) calcium carbonate 500 mg calcium 500 mg PO BID 10/08/21 10/08/21 Unknown History (1,250 mg) tablet multivitamin 1 tab PO DAILY 10/08/21 10/08/21 Unknown History Physical Exam Vital Signs: Vital Signs: Last Vital Signs Temp 97.8 F 10/09/21 08:00 Pulse 53 10/09/21 08:29 Resp 19 10/09/21 08:00 BP 200/95 H 10/09/21 08:29 Pulse Ox 99 10/09/21 08:29 O2 Del Method 10/09/21 08:00 BMI result Body Mass Index 36.9 Neuro: Other: She was alert and awake with normal spontaneity of speech fluency comprehension and affect. She was walking around holding a phone and her right hand with no difficulty. Results Labs CBC & Chem 7: 10/08/21 05:56 10/08/21 05:56 Labs: MRI of brain revealed an acute left periventricular ischemic infarction with few smaller bilateral chronic ischemic infarctions Assessment and Plan (1) Cerebral infarction: Status: Acute Young woman with untreated and uncontrolled hypertension has an acute small atherothrombotic ischemic infarction of brain with evidence of few smaller similar chronic lesions. Mainstay of management is proper blood pressure control. She had side effects from couple of blood pressure medicines she had tried in the past including calcium channel stefania and diuretic. I would recommend alternate type of medicines and bring her blood pressure down. As stated before, continue baby aspirin daily and control of other vascular risk factors. He was reassured and educated about all this. (2) Uncontrolled hypertension: Status: Acute Procedures Date of Service Date of Service: 10/09/21
--- NOTE | 2021-10-09 09:47 | MHC.CM.PN ---
Addendum entered by Tabitha Stewart 10/09/21 11:26: Pt evaluated by OT and deemed no skilled services needed. HCP completed Pt to discharge home without services. Original Note: Pt reports she lives with her and daughter. Pt does not receive any services at home use DME. Pt reports she is COVID vaccinated with [facility] [employer] [facility] and Pfizer booster. Pt will complete new HCP naming his and brother (Kasandra Dasilva and Jessee Love). Pt's PCP is Rima Espinoza. Pt reports she will need transportation home. Shuttle vs Taxi. Discharge Plan TBD pending P.T./O.T.
--- NOTE | 2021-10-09 10:08 | MHC.CLN ---
RE: CONSULT CONSULT COMPLETE: MEDITERRANEAN DIET SEE TEACHING RECORD
[2021-10-09] MEDS: lisinopriL 20 MG TABLET PO (10:40)
--- NOTE | 2021-10-09 11:58 | P.DS_ITS ---
DS: Providers Provider Date of Service: 10/09/21 Date of admission: 10/08/21 10:19 Date of discharge: 10/09/21 Primary care physician: Unknown Physician Consults: 10/08/21 08:45 Consult to Neurology Routine Consulting Provider: [facility] Reason for consultation: RUE weakness/dysmetria/dysdiadochokinesia DS: Diagnosis Discharge Diagnosis (1) Cerebral infarction: Status: Acute (2) Uncontrolled hypertension: Status: Acute DS: Summary Hospital Course Hospital Course: from my admission H+P, 10/08/21: Ms Love is a 46 year-old R-hand dominant woman with history of hypertension and gout, managed with lifestyle changes due to past intolerance of at least 3 antihypertensives, who was in her usual state of health until she woke up to go to the bathroom at 23:00 last night and noted heaviness and awkwardness of her R hand.? Some numbness of the R hand as well.? No facial droop or swallowing difficulty.? No language difficulty.? No leg weakness.? No headache.? She also noted balance problems.? She woke up this morning with the same symptoms and called EMS to transport her to the ED.? She took edible THC yesterday, unknown dosage, and wonders if her symptoms are due to that, since she usually takes THC via inhalation.? The R hand symptoms and balance problems are improving.? Family history is notable for her mother who had HTN and from a CVA last year. She has lost at least 100 lb over the last year through diet and exercise. In the ED, noncontrast CT was negative for bleed or stroke, and CTA of the head and neck was negative for large-vessel occlusion.? EKG showed 1st degree AVB and NSR.? She was noted to have dysmetria and dysdiadochokinesia.? She was given 324mg of ASA.? She also presented with BP of 198/107 and was given 10mg of IV labetalol. She was admitted to the [facility]. MRI demonstrated a small area of acute infarction in the left periventricular white matter, without evidence of hemorrhagic transformation. Neurology, PT, and OT were consulted. Her symptoms improved. She was started on aspirin and atorvastatin for secondary prevention and counseled to follow a Mediterranean-style diet and to continue to exercise regularly. Echocardiography showed mild LVH with impaired relaxation; moderate aortic atherosclerosis; and no evidence of intracardiac shunting. After an initial period of permissive hypertension, she was started on lisinopril for hypertension and will follow-up with her new primary care doctor on 10/10/21 for ongoing management of hypertension. Time Spent with Patient Time attestation: Total time spent providing and/or coordinating discharge services: Discharge coordination time: Greater than 30 minutes Quality: Safe Use of Opioids Does Pt have an Active Cancer Diagnosis on the Problem List?: No Quality: Stroke Does the patient have a stroke diagnosis?: Yes Reason for No Anti-thrombotic at DC: N/A - Med Ordered Reason for No Anticoagulant at DC: Drug treatment not indicated Reason Not Initiating IV-Tpa: Drug treatment not indicated Reason for No Anti-thrombotic by Day Two: N/A - Med Ordered Reason for No Statin at DC: N/A - Med Ordered Physical Exam Vital Signs: Vital Signs: Last Vital Signs Temp 97.8 F 10/09/21 08:00 Pulse 53 10/09/21 08:29 Resp 19 10/09/21 08:00 BP 200/95 H 10/09/21 08:29 Pulse Ox 99 10/09/21 08:29 O2 Del Method 10/09/21 08:00 BMI result Body Mass Index 36.9 Gen: in no acute distress HEENT: sclera anicteric, moist mucus membranes Neck: supple Lungs: clear to auscultation bilaterally Heart: regular rate and rhythm, no murmurs Abd: soft, non-tender, non-distended Ext: no edema Skin: warm/well-perfused Neuro: alert and oriented x3, mild R hand weakness Psych: appropriate affect DS: Data Data Completed and Pending Completed studies during hospitalization [Text1]: Laboratory Results WBC 8.7 X10*3/uL (4.8-10.8) 10/08/21 05:56 RBC 4.24 X10*6/uL (4.20-5.50) 10/08/21 05:56 Hgb 12.0 g/dl (12.0-16.0) 10/08/21 05:56 Hct 37.6 % (37.0-47.0) 10/08/21 05:56 MCV 88.7 fL (80.0-98.0) 10/08/21 05:56 MCH 28.3 pg (27.0-33.0) 10/08/21 05:56 MCHC 31.9 g/dl (31.0-35.0) 10/08/21 05:56 RDW 14.2 % (11.0-16.0) 10/08/21 05:56 Plt Count 325 X10*3/uL (160-400) 10/08/21 05:56 MPV 9.4 fL (9.4-12.3) 10/08/21 05:56 Immature Gran % (Auto) 0.1 % (0.0-0.4) 10/08/21 05:56 Neut % (Auto) 53.2 % (45-73) 10/08/21 05:56 Lymph % (Auto) 40.7 % (20-40) H 10/08/21 05:56 [place] % (Auto) 3.7 % (2-11) 10/08/21 05:56 Eos % (Auto) 1.8 % (0-4) 10/08/21 05:56 Baso % (Auto) 0.5 % (0-2) 10/08/21 05:56 Lymph # (Auto) 3.5 X10*3/uL (1.2-4.9) 10/08/21 05:56 [place] # (Auto) 0.3 X10*3/uL (0.1-1.2) 10/08/21 05:56 Eos # (Auto) 0.2 X10*3/uL (0.0-0.4) 10/08/21 05:56 Baso # (Auto) 0.0 X10*3/uL (0.0-0.2) 10/08/21 05:56 Abs Immat Gran (auto) 0.01 X10*3/uL (0.00-0.03) 10/08/21 05:56 Absolute Neuts (auto) 4.6 x10*3/uL (2.0-8.3) 10/08/21 05:56 Absolute Nucleated RBC 0.000 X10*3/uL (0.0-0.012) 10/08/21 05:56 Nucleated RBC % (auto) 0.0 /100WBC (0.0-0.2) 10/08/21 05:56 PT 10.6 SEC (9.9-13.0) 10/08/21 05:56 Whole Blood PT 11.5 sec (11.1-13.5) 10/08/21 05:48 INR 0.9 (0.9-1.1) 10/08/21 05:56 Whole Blood INR 1.0 (0.9-1.1) 10/08/21 05:48 Sodium 141 mmol/L (135-145) 10/08/21 05:56 Potassium 4.2 mmol/L (3.3-5.1) 10/08/21 05:56 Chloride 112 mmol/L (96-108) H 10/08/21 05:56 Carbon Dioxide 21 mmol/L (22-29) L 10/08/21 05:56 Anion Gap 12 (12-20) 10/08/21 05:56 BUN 21 mg/dL (9-16) H 10/08/21 05:56 Creatinine 1.02 mg/dL (0.5-1.4) 10/08/21 05:56 Estim Creat Clear Calc 84.0 10/08/21 05:56 Estimated GFR 59 10/08/21 05:56 POC Glucose 101 mg/dL (60-115) 10/08/21 05:48 Random Glucose 105 mg/dL (60-115) 10/08/21 05:56 Estimat Average Glucose 97 mg/dL 10/09/21 06:30 Hemoglobin A1c % 5.0 % 10/09/21 06:30 Calcium 9.0 mg/dL (8.4-10.2) 10/08/21 05:56 Total Bilirubin 0.4 mg/dL (0.0-1.0) 10/08/21 05:56 AST 19 U/L (5-31) 10/08/21 05:56 ALT 13 U/L (0-31) 10/08/21 05:56 Alkaline Phosphatase 84 U/L (39-117) 10/08/21 05:56 Troponin I High Sens < 3.5 ng/L (<3.5-17.0) 10/08/21 05:56 Total Protein 7.7 g/dL (6.5-8.0) 10/08/21 05:56 Albumin 4.0 g/dL (3.5-5.0) 10/08/21 05:56 Triglycerides 68 mg/dL 10/09/21 06:30 Cholesterol 212 mg/dL 10/09/21 06:30 LDL Cholesterol, Calc 142 mg/dl 10/09/21 06:30 HDL Cholesterol 57 mg/dL 10/09/21 06:30 COVID-19 ([place]) Negative (Negative) 10/08/21 05:56 COVID-19 Clin Com See Note 10/08/21 05:[address] 10/08/21 06:13 IMPRESSION: No acute intracranial pathology. This critical result was discussed with Dr Nicola Estes at 10/08/2021 6:25 AM and it was ascertained that the content and urgency of the report was understood at the time of direct communication. Head/Neck CTA 10/08/21 06:32 IMPRESSION: No hemodynamically significant stenosis or large vessel occlusion within the intracranial or extracranial arterial vasculature. This critical result was discussed with Dr Nicola Estes at 10/08/2021 6:25 AM and it was ascertained that the content and urgency of the report was understood at the time of direct communication. Brain MRI 10/08/21 12:13 IMPRESSION: 1. There is a small area of acute infarction in the left periventricular white matter. There is no evidence of hemorrhagic transformation. 2. There are no masses. There are scattered white matter changes as described above. 3. This critical result was discussed with Nilesh Shaw by telephone on 10/08/2021 at 12:40 PM and it was ascertained that the content and urgency of the report was understood at the time of direct communication. TTE 10/09/21 1.? Normal LV systolic function with mild LVH with impaired? ? relaxation filling pattern ? 2. Trivial aortic regurgitation and mild mitral regurgitation? ? 3. No evidence of intracardiac shunting? 4. Normal RV systolic pressure ? 5. Moderate atherosclerotic changes in the ascending and ? descending thoracic aorta noted? 6. No gross pericardial effusion ? Labs on day of discharge: Laboratory Results - last 24 hr 10/09/21 10/09/21 06:30 06:30 Estimat Average Glucose 97 Hemoglobin A1c % 5.0 Triglycerides 68 Cholesterol 212 LDL Cholesterol, Calc 142 HDL Cholesterol 57 Discharge Plan Discharge Patient Disposition: Home, Self-Care Discharge Diagnosis: acute ischemic stroke, uncontrolled hypertension Referrals: Rima Espinoza MD [Physician] - 1 Day Discharge Medications: New atorvastatin 40 mg Tablet 40 mg PO BEDTIME Qty: 30 0RF lisinopril 20 mg Tablet 20 mg PO DAILY Qty: 30 0RF Protocol: Hold for SBP< HOLD for SBP < : 90 aspirin 81 mg Tablet,Chewable 81 mg PO DAILY Qty: 30 0RF Continued multivitamin Tablet 1 tab PO DAILY calcium carbonate 500 mg calcium (1,250 mg) Tablet 500 mg PO BID Acidophilus Capsule 10,000 mmu cells PO DAILY Discharge Orders: Discharge Order (Routine); Ordered 10/09/21 Ordered By: Zafar Perez Diet: low salt diet Activity on Discharge: As tolerated Stand Alone Forms: Patient Portal Discharge page Care Plan Goals: stroke prevention Health Concerns: acute ischemic stroke, uncontrolled hypertension Plan of Treatment: start aspirin 81 mg daily, atorvastatin 40 mg daily, and lisinopril 20 mg daily Mediterrranean diet aerobic exercise 150 minutes/week follow up with Primary Care as scheduled tomorrow Assessment: See Discharge Summary Patient Instructions: Mediterranean Diet (DC)
[2021-10-09] MEDS: Enoxaparin Sodium 40 MG/0.4 ML SYRINGE SUBCUT (12:37)
[2021-10-09 14:06] VITALS: BP 164/99; PULSE 63
--- NOTE | 2021-10-09 14:29 | MHC.CM.PN ---
PT LIKELY TO BE DISCHARGED HOME TODAY WITH NO SERVICES TAXI VOUCHER PROVIDED
--- NOTE | 2021-10-09 14:53 | MHC.STROKE ---
10/08/21 EMS PRE-NOTIFIED STROKE ALERT . ARRIVED AT 0539. SEEN BY PROVIDER, DISCOVERY OF SYMPTOMS WAS 10/07/21 AT 2300, I CLARIFIED LKW WITH THE PATIENT TODAY AND SHE WENT TO BED AT 2030 SYMPTOM FREE, WOKE AT 2300 WITH RIGHT ARM NUMBNESS, WEAKNESS BUT DID NOT WANT TO BOTHER HER SO SHE WENT BACK TO BED. SHE COULD NOT SLEEP AND WHEN SHE TOLD HER , THEY CALLED 911. NIHSS = 3, +FAMILY HISTORY OF STROKE, HER MOTHER LAST YEAR OF A STROKE, HTN, OBESITY. FOR THE PAST 5 YEARS SHE HAS LOST 100 LBS. STARTED WORKING OUT, WE DISCUSSED CHANGING HER DIET AND LIFESTYLE CHANGES. SHE ALSO HAS A SENSITIVITY TO MEDICATIONS AND I SUGGESTED SHE TALKS TO HER PCP ABOUT CONSULTING A CATHODE BUILDER FOR SELECTING THE MOST APPROPRIATE BP MEDS, I GAVE HER A BP CHART WITH GOALS, I REVIEWED HER MRI SCREENSHOT AND THE LOCATION OF THE STROKE AND CORRELATING SYMPTOMS. I STRESSED MEDICATION COMPLIANCE WITH ANTIHYPERTENSIVES, ANTIPLATELETS, STATINS AND WHY THESE WERE IMPORTANT. SHE WANTS TO LIFT WEIGHTS AT THE GYM AGAIN AND I MENTIONED TO TAKE IT EASY FOR 2 WEEKS. I ANSWERED ALL OF HER QUESTIONS AND PROVIDED ENCOURAGEMENT. I DID RECOMMEND THAT SHE PURCHASE A BLOOD PRESSURE MACHINE FOR AT HOME AND TAKE HER BP AT THE GYM.
[2021-10-09 15:14] VITALS: BP 162/97; PULSE 60; RESP 18; TEMP 36.5; O2SAT 98
--- NOTE | 2021-10-09 16:54 | PC.NURSE ---
1648-discharge information given to and explained to pt. signed work note also given to pt. Questions answered. IV removed.
--- NOTE | 2021-10-09 17:15 | PC.NURSE ---
1708-pt discharged via wheelchair. pt had friend come pick her up. pt belongings with her.
== END 2021-10-09 17:08 | disposition home or self-care (01) | DRG 66 ==
LOC: HO.ED 07:41 → HO.IMC 19:51 → HO.EDOVER 10-13 14:02 → HO.IMC 10-13 14:02
PROVIDERS: Emergency Medicine; Admitting Provider Family Medicine; Emergency Provider Emergency Medicine Emergency Medical Services; PCP Internal Medicine; Visit Provider Family Medicine
DX: I63.89 Other cerebral infarction (principal); R29.703 NIHSS score 3; I10 Essential (primary) hypertension; R27.8 Other lack of coordination; M10.9 Gout, unspecified; E66.9 Obesity, unspecified; I70.0 Atherosclerosis of aorta; Z68.36 Body mass index [BMI] 36.0-36.9, adult; G83.21 Monoplegia of upper limb affecting right dominant side; I16.0 Hypertensive urgency; Z90.710 Acquired absence of both cervix and uterus; Z20.822 Contact with and (suspected) exposure to COVID-19; Z79.899 Other long term (current) drug therapy
CPT/HCPCS: 36415; 70450; 70496; 70498; 70551; 80053; 80061; 82947; 83036; 84484; 85025; 85610; 87635; 93005; 93306; 96374; 97162; 97165; 99285; J1650; Q9967

== ENCOUNTER 2021-10-17 16:47 | Emergency (ER) | payer OTHER, SELFPAY ==
--- NOTE | ~2021-10-17 | XR_ITS ---
EXAMINATION: XR HAND, RIGHT CLINICAL INFORMATION: Swelling. Pain. COMPARISON: None TECHNIQUE: Three views of the right hand. FINDINGS: No fracture. No dislocation. Joint spaces are normal. There is negative ulnar variance. The ulna is shorter than the radius by about 2 mm. No impaction changes of the radial ulnar joint. There is soft tissue swelling at the dorsum of the hand no radiopaque foreign body. No air in the soft tissues. XR/XR hand RT 2V IMPRESSION: Soft tissue swelling at the dorsum of hand. No acute osseous abnormality.
[2021-10-17 18:31] VITALS: BP 157/100; PULSE 92; RESP 18; TEMP 36.6; O2SAT 99; BMI 35.5
--- NOTE | 2021-10-17 20:41 | ED.EXTPRO ---
HPI - Extremity Problem General Chief complaint: Extremity Problem Stated complaint: swollen right hand Time Seen by Provider: 10/17/21 20:16 History of Present Illness HPI Narrative: Patient complains of swelling in the right hand which began several days ago, the swelling did begin 2 days after she was discharged from the hospital where an IV had been in her right dorsal forearm, the pain is mostly the back of the right hand and the fingers, it does hurt to make a fist and she cannot make a full fist because of the swelling She had been admitted for a CVA 1 week ago, did not get thrombolytics Related Data Home Medications Medication Instructions Recorded Confirmed Lactobacillus acidophilus 10,000 mmu cells PO DAILY 10/08/21 10/08/21 (Acidophilus) calcium carbonate 500 mg calcium 500 mg PO BID 10/08/21 10/08/21 (1,250 mg) tablet multivitamin 1 tab PO DAILY 10/08/21 10/08/21 Previous Rx's Medication Instructions Recorded aspirin 81 mg chewable tablet 81 mg PO DAILY #30 tabs 10/09/21 atorvastatin 40 mg tablet 40 mg PO BEDTIME #30 tabs 10/09/21 lisinopril 20 mg tablet 20 mg PO DAILY #30 tabs 10/09/21 cephalexin 500 mg tablet 500 mg PO QID 7 days #28 tabs 10/17/21 Allergies Allergy/AdvReac Type Severity Reaction Status Date / Time No Known Allergies Allergy Verified 08/04/21 06:25 Review of Systems Review of Systems: Positive for right hand pain and swelling Negatives are no fever no chills no dizziness no weakness no headache no neck pain no chest pain no numbness weakness or tingling no upper arm pain no upper arm swelling no other skin rash Yes all other systems are reviewed and are negative PMFSH Past Medical History Source: nursing notes reviewed Medical History (Updated 10/18/21 @ 00:00 by Isi Obregon) Cerebral infarction Gout HTN (hypertension) Hypertensive urgency Stroke Uncontrolled hypertension Weakness of right upper extremity Surgical History History of hysterectomy Family History Family History (Updated 10/08/21 @ 10:21 by Zafar Perez MD) Mother Hypertension Stroke Social History Social History Alcohol intake: never Patient Tobacco Use Status: Never used Tobacco Substance Use Type: Marijuana Advance Directives: Yes Advance Directives on File: Yes Advance Directives Date on File: 10/10/21 service: No Current occupational status: employed Physical Exam Vital Signs: Vital Signs: Last Vital Signs Temp 97.9 F 10/17/21 18:31 Pulse 92 10/17/21 18:31 Resp 18 10/17/21 18:31 BP 157/100 H 10/17/21 18:31 Pulse Ox 99 10/17/21 18:31 O2 Del Method 10/17/21 18:31 BMI result Body Mass Index 35.5 General appearance is no acute distress Head is normocephalic atraumatic Neck is supple Respiratory no distress Extremities the right dorsal hand is swollen, warm with very mild redness, there is no other arm swelling there is no tenderness or swelling to the upper arm, there is no palpable cord in the forearm distal to the IV site there is no redness or warmth in the forearm Sensation and motor are intact distal but the swelling of the dorsal right hand and the fingers prevents making a full fist Dorsal 2 through 5 fingers have soft tissue swelling but all of them extend fully and flex symmetrically with mild limited in all 4 fingers due to swelling no evidence of tendon infection Other extremities normal Course Course Course Narrative: Pain and swelling a limited to the back of the right hand which is warm to the touch and tender to the touch, the fingers are also mildly swollen, there is full range of motion in the wrist the elbow there is no tenderness or swelling above the elbow or in the upper arm the shoulder has full range of motion, the pulses are 2+ and symmetrical in the wrist, capillary refill is symmetric on both sides, sensation and motor function are intact The patient is treated for a possible cellulitis and also recommended to elevate the arm Case was discussed with Dr. Street Discharge Plan Discharge Clinical Impression: Cellulitis, Swelling of right hand Patient Disposition: Home, Self-Care Additional Instructions: We are treating possible cellulitis in your right hand with Keflex antibiotic Always take probiotics available in the vitamin section of any pharmacy if you take antibiotics as they may prevent diarrhea from antibiotics Elevate the hand as much as possible as this may reduce swelling Return in 2 days on for recheck if not significantly improved Return to the ER any time for worse pain and swelling, spreading redness, swelling and pain going into the upper arm, fever, any worse condition or any concerns Prescriptions: New cephalexin 500 mg tablet 500 mg PO QID 7 Days Qty: 28 0RF No Action multivitamin Tablet 1 tab PO DAILY calcium carbonate 500 mg calcium (1,250 mg) Tablet 500 mg PO BID Acidophilus Capsule 10,000 mmu cells PO DAILY atorvastatin 40 mg Tablet 40 mg PO BEDTIME Qty: 30 0RF lisinopril 20 mg Tablet 20 mg PO DAILY Qty: 30 0RF Protocol: Hold for SBP< HOLD for SBP < : 90 aspirin 81 mg Tablet,Chewable 81 mg PO DAILY Qty: 30 0RF Stand Alone Forms: Work/School Release Interventions: ED Discharge Assessment Last Done: 10/17/21 22:04 Discharge Date/Time: 10/17/21 22:05
[2021-10-17] MEDS: Ibuprofen 400 MG TABLET PO (20:52)
[2021-10-17] MEDS: cephALEXin 500 MG CAPSULE PO (20:53)
== END 2021-10-17 22:05 | disposition home or self-care (01) ==
PROVIDERS: Emergency Provider Emergency Medicine; PCP Internal Medicine
DX: L03.113 Cellulitis of right upper limb (principal); Z79.899 Other long term (current) drug therapy
CPT/HCPCS: 73120; 99283

== ENCOUNTER 2021-12-20 05:29 | Emergency (ER) | payer OTHER, SELFPAY ==
[2021-12-20 05:36] VITALS: BP 167/105; PULSE 98; RESP 18; TEMP 37.3; O2SAT 98; BMI 33.9
--- NOTE | 2021-12-20 06:06 | ED_ITS ---
HPI - General Adult General Chief complaint: Extremity Problem Stated complaint: Gout Time Seen by Provider: 12/20/21 05:56 Source: patient Mode of arrival: ambulatory Limitations: no limitations History of Present Illness HPI narrative: 46-year-old female who presents emergency department for evaluation of pain in her right great toe, foot and ankle. Patient states the pain started 3 days prior. The pain came on gradually. The pain is a constant, pins and needles sensation which is worse if she puts any pressure on her foot. She states that at rest the pain is 3/10 but with pressure on the foot the pain is 10/10. Patient does have a history of gout and she believes that her pain is caused by a gout flare up. She states that she had a stroke in September of 2021 and was started on lisinopril and atorvastatin. She is concerned that these medications may have caused her to have a flare-up of her gout. She states that she cannot take NSAIDs or Tylenol . She states that in the past her got was successfully treated with prednisone. Patient states she has noted a slight cough since being started on lisinopril but she states that it is tolerable. She denied fever, chills, rhinorrhea, sore throat, cough, chest pain, shortness of breath, dyspnea on exertion, nausea, vomiting or diarrhea. MD complaint: Right foot/ankle/great toe pain Onset (ago): day(s) (3) Location: right and lower extremity (Foot/ankle/great toe) Radiation: non-radiation Severity: severe Severity scale (1-10): 10 Quality: other (Needle like sensation) Pain Consistency: constant Relieving factors: none Exacerbating factors: movement and other (Pressure) Associated symptoms: denies other symptoms Treatments prior to arrival: none Related Data Home Medications Medication Instructions Recorded Confirmed Lactobacillus acidophilus 10,000 mmu cells PO DAILY 10/08/21 10/08/21 (Acidophilus capsule) calcium carbonate 500 mg calcium 500 mg PO BID 10/08/21 10/08/21 (1,250 mg) tablet multivitamin 1 tab PO DAILY 10/08/21 10/08/21 Previous Rx's Medication Instructions Recorded aspirin 81 mg chewable tablet 81 mg PO DAILY #30 tabs 10/09/21 atorvastatin 40 mg tablet 40 mg PO BEDTIME #30 tabs 10/09/21 lisinopril 20 mg tablet 20 mg PO DAILY #30 tabs 10/09/21 cephalexin 500 mg tablet 500 mg PO QID 7 days #28 tabs 10/17/21 prednisone 20 mg tablet 60 mg PO DAILY 7 days #21 tabs 12/20/21 Allergies Allergy/AdvReac Type Severity Reaction Status Date / Time acetaminophen Allergy Rash Verified 12/20/21 06:20 indomethacin Allergy Rash Verified 12/20/21 06:20 Review of Systems Review of Systems: Yes all other systems are reviewed and are negative [facility] Past Medical History [facility] Narrative: Social history: Patient states she stop drinking alcohol 5 years prior. She denies tobacco use. She occasionally smokes marijuana. Medical History Cerebral infarction Gout HTN (hypertension) Hypertensive urgency Stroke Uncontrolled hypertension Weakness of right upper extremity Surgical History History of hysterectomy Family History Family History Mother Hypertension Stroke Social History Social History Alcohol intake: never Patient Tobacco Use Status: Never used Tobacco Substance Use Type: Marijuana Advance Directives: Yes Advance Directives on File: Yes Advance Directives Date on File: 10/10/21 service: No Current occupational status: employed Physical Exam ED Vital Signs: Vital Signs - 24 hr 12/20/21 05:36 Temperature 99.2 F Pulse Rate 98 Respiratory Rate 18 Blood Pressure 167/105 H Pulse Oximetry 98 Oxygen Delivery Method Room Air BMI result Body Mass Index 33.9 Const General: no acute distress Orientation/consciousness: patient oriented x3 Limitations: no limitations HENMT Head: Yes normal to inspection Ears: external ears normal General nose exam: Normal external nose present Face and sinus: Yes normal facial exam Mouth: moist mucous membranes Throat: Yes posterior oropharynx normal, Yes tonsils normal and Yes uvula midline Eyes General: appearance normal, both eyes and all related structures Eyelids: Yes eyelids normal Conjunctivae: conjunctivae normal Pupils: Equal, round and reactive pupils present Neck Neck: Yes supple Chest Chest palpation & inspection: normal inspection of the chest and normal palpation of entire chest wall Resp Effort & Inspection: normal respiratory effort Auscultation: clear to auscultation bilaterally Cardio Rate: regular rate Rhythm: regular rhythm Heart sounds: S1 normal heart sound present, S2 normal heart sound present, no gallops, no murmurs and no rubs GI Inspection: No distended Palpation (GI): Soft to palpation and nontender Auscultation: normal bowel sounds General: Yes no CVA tenderness Back/Spine/Pelvis Back: no CVA tenderness Skin General skin exam: other (Warm and dry) Neuro Other: No facial droop or other cranial nerve deficit evident. Slight pronator drift side-arm. Decreased rapid alternating movements right hand. Slight weakness of heel to [place] on the right compared to the left. Visual dumas normal. Extraocular motions normal. General: patient oriented x3 and CN's II-XI intact bilaterally Cranial nerves: Yes CN's II-XII intact bilaterally and Yes Equal, round and reactive pupils present Cognition (Neuro): normal cognition Extrem Other: The patient has soft tissue swelling and erythema to the right great toe, foot and ankle, these areas are exquisitely tender to palpation. Her extremities neurovascular intact Psych Appearance: grossly normal Speech and movement: Normal speech and movement present Affect: normal affect Attitude: cooperative Thought process: Normal thought process present Course Course Course Narrative: 46-year-old female who presents emergency department for evaluation pain, swelling increased warmth to her right great toe, foot and ankle. Patient has had symptoms for 3 days. Patient does have a history of gout. Patient's findings are consistent with a gout flare-up. Patient was started on prednisone 60 mg once a day for 7 days. She was given her 1st dose here in the emergency department. She was given printed and verbal instructions and discharged home. Discharge Plan Discharge Clinical Impression: Gout attack Qualifiers: Gout site: foot Patient Disposition: Home, Self-Care Instructions: Low Purine Diet (ED), Gout (ED) Additional Instructions: Take prednisone 20 mg pills, 3 pills once a day for 6 days. While you are taking prednisone, do not take any NSAIDs (Motrin, Advil, ibuprofen, Aleve, naproxen). Follow-up with your doctor in 2 days. Please return to the emergency department if your symptoms get worse or if you develop any symptoms that are concerning to you. Prescriptions: New prednisone 20 mg tablet 60 mg PO DAILY 7 Days Qty: 21 0RF No Action cephalexin 500 mg tablet 500 mg PO QID 7 Days Qty: 28 0RF multivitamin Tablet 1 tab PO DAILY calcium carbonate 500 mg calcium (1,250 mg) Tablet 500 mg PO BID Acidophilus Capsule 10,000 mmu cells PO DAILY atorvastatin 40 mg Tablet 40 mg PO BEDTIME Qty: 30 0RF lisinopril 20 mg Tablet 20 mg PO DAILY Qty: 30 0RF Protocol: Hold for SBP< HOLD for SBP < : 90 aspirin 81 mg Tablet,Chewable 81 mg PO DAILY Qty: 30 0RF Stand Alone Forms: Work/School Release Interventions: ED Discharge Assessment Last Done: 12/20/21 06:29 Discharge Date/Time: 12/20/21 06:30
[2021-12-20] MEDS: predniSONE 20 MG TABLET 60 MG PO (06:20)
== END 2021-12-20 06:30 | disposition home or self-care (01) ==
PROVIDERS: Emergency Provider Emergency Medicine Emergency Medical Services; PCP Internal Medicine
DX: M10.9 Gout, unspecified (principal); R05.9 Cough, unspecified; Z79.899 Other long term (current) drug therapy
CPT/HCPCS: 99282; 99283

== ENCOUNTER 2022-07-15 08:43 | Emergency (ER) | payer OTHER, SELFPAY ==
[2022-07-15 09:02] VITALS: BP 147/96; PULSE 91; RESP 18; TEMP 36.6; O2SAT 98; BMI 35.6
--- NOTE | 2022-07-15 09:47 | ED.EXTPRO ---
HPI - Extremity Problem General Chief complaint: General Medical Stated complaint: L hand swelling/Gout? Time Seen by Provider: 07/15/22 09:15 Source: patient Mode of arrival: ambulatory Limitations: no limitations History of Present Illness HPI Narrative: 47yoF with a PMHx of Gout who is presenting to the ER with complaints of left wrist pain/swelling that started Saturday worse today. Reports she did eat some pork recently and then the next day started having this pain. She denies any recent falls, fevers, chills, tingling, chest pain or shortness of breath, redness or any other symptoms complaints or concerns at this time. Reports she is allergic to indomethacin is requesting anti-inflammatories. MD Complaint: joint swelling and joint pain Onset (ago): day(s) (2) Pain Consistency: constant Location: left and upper extremity (wrist) Quality: burning, aching and constant Radiation: proximal and distal Relieving factors: nothing Exacerbating factors: range of motion and palpation Associated symptoms: denies other symptoms Context: history of gout Related Data Home Medications Medication Instructions Recorded Confirmed Lactobacillus acidophilus 10,000 mmu cells PO DAILY 10/08/21 10/08/21 (Acidophilus capsule) calcium carbonate 500 mg calcium 500 mg PO BID 10/08/21 10/08/21 (1,250 mg) tablet multivitamin 1 tab PO DAILY 10/08/21 10/08/21 Previous Rx's Medication Instructions Recorded aspirin 81 mg chewable tablet 81 mg PO DAILY #30 tabs 10/09/21 atorvastatin 40 mg tablet 40 mg PO BEDTIME #30 tabs 10/09/21 lisinopril 20 mg tablet 20 mg PO DAILY #30 tabs 10/09/21 cephalexin 500 mg tablet 500 mg PO QID 7 days #28 tabs 10/17/21 prednisone 20 mg tablet 60 mg PO DAILY 7 days #21 tabs 12/20/21 hydrocodone 5 mg-acetaminophen 325 1 tab PO Q8H #14 tabs 07/15/22 mg tablet prednisone 20 mg tablet 40 mg PO DAILY inflammation/gout 5 07/15/22 days #10 tabs Allergies Allergy/AdvReac Type Severity Reaction Status Date / Time acetaminophen Allergy Rash Verified 12/20/21 06:20 indomethacin Allergy Rash Verified 12/20/21 06:20 Review of Systems Review of Systems: Constitutional : No Weight loss, No Fever, No Chills, No Night Sweats, No Fatigue, No Malaise ENT/Mouth : No Hearing loss, No Ear Pain, No Nasal Congestion, No Sinus Pain, No Hoarseness, No sore throat, No Rhinorrhea, No Swallowing Difficulty Eyes: No Eye Pain, No Swelling, No Redness, No Foreign Body, No Discharge, No Vision Changes Cardiovascular : No Chest Pain, No SOB, No Dyspnea on Exertion, No Orthopnea, No Edema, No Palpitations Respiratory : No Cough, No Sputum, No Wheezing, No Smoke Exposure, No Dyspnea Gastrointestinal : No Nausea, No Vomiting, No Diarrhea, No Constipation, No abdominal Pain, No Hematochezia, No Melena Genitourinary : no irregular bleeding, No Dysuria, No Urinary Frequency, No Hematuria, No Urinary Incontinence, No Urgency, No Flank Pain, No Urinary Flow Changes, No Hesitancy Musculoskeletal : + left wrist joint pain/swelling, No Myalgias Skin : No Skin Lesions, No rash Neuro : No Weakness, No Numbness, No Paresthesias, No Loss of Consciousness, No Dizziness, No Headache Psych : No Anxiety/Panic, No Depression, No SI/HI/AH/VH, No Social Issues, Heme/Lymph: No Bruising, No Bleeding,No Lymphadenopathy Endocrine : No Polyuria, No Polydipsia, No Temperature Intolerance Yes all other systems are reviewed and are negative [facility] Past Medical History Attestation statement: The following information was validated with the patient. Source: old records reviewed and nursing notes reviewed Medical History Cerebral infarction Gout HTN (hypertension) Hypertensive urgency Stroke Uncontrolled hypertension Weakness of right upper extremity Surgical History History of hysterectomy Family History Family History Mother Hypertension Stroke Social History Social History Alcohol intake: never Patient Tobacco Use Status: Never used Tobacco Substance Use Type: Marijuana Advance Directives: No Advance Directives Information Provided: No Advance Directives Date on File: 10/10/21 service: No Current occupational status: employed Physical Exam Vital Signs: Vital Signs: Last Vital Signs Temp 98 F 07/15/22 09:02 Pulse 91 07/15/22 09:02 Resp 18 07/15/22 09:02 BP 147/96 H 07/15/22 09:02 Pulse Ox 98 07/15/22 09:02 O2 Del Method Room Air 07/15/22 09:02 BMI result Body Mass Index 35.6 Vital signs reviewed. Blood pressure normal. Pulse normal. Respiration normal. Oxygen normal. Temperature normal. Appearance: Alert. Oriented X3. No acute distress. Head: Normal external exam. Normocephalic. Atraumatic. Eyes: PERRLA. EOMI. Conjunctiva and sclera normal. Eyelids normal. ENT: EAC normal. TM's Normal. Pharynx normal. Uvula midline. Moist mucous membranes. No lesions/ulcerations or masses noted on the tongue. Normal voice. No trismus noted. No drooling noted. No muffled voice noted. Neck: Normal inspection. Neck supple. FROM. No adenopathy. Thyroid Normal. No meningeal signs. CVS: Normal heart rate and rhythm. Heart sound normal. Pulses normal throughout. No murmurs/rales/gallops. Respiratory: No respiratory distress. Painless inspiration. Breath sounds normal. No wheezes/rales/rhonchi noted. Chest nontender. No accessory muscle usage noted or decreased air movement noted. Abdomen: Soft and nontender. Back: Full range of motion noted. Nontender. Skin: Skin warm and dry. Normal skin color. Normal skin turgor. No rashes/lesions/lacerations noted. Extremities: Patient moderate tenderness palpation to the volar and dorsal aspect of the left wrist with limited range of motion due to pain and soft tissue swelling. Not consistent with septic joint. Otherwise all other Extremities exhibit normal range of motion and nontender. Neuro: Oriented X 3. No motor deficit. No sensory deficit. Reflexes normal. Normal steady gait. No focal neuro deficits noted. CN's II-XII intact bilaterally? Vascular: + radial pulses. Normal cap refill. No cyanosis noted to upper extremity nails Course Course Course Narrative: Patient with gout.Not c/w DVT. Not consistent with cellulitis. Not c/w necrotizing fasciitis/ myositis/ arterial occlusion/ osteomyelitis/ compartment syndrome/ septic joint. Will DC home with prednisone for inflammation and [place] for pain. Along with instructions return if any new or worsening symptoms follow up with primary care provider. Patient understands agrees with this plan. Medical Decision Making External Record Review External record reviewed: Inpatient record, Office record, Outpatient record, Prior outpatient labs, Prior outpatient radiology, Primary care record and Outside ED record Patient has been seen here multiple times for gout in the past. Reviewed all other records/labs/imaging that are acceptable in our system Prescription Management I considered prescription management with: Pain Medication Patient will be given anti-inflammatories and pain medication for gout flare up. Chronic Conditions Patient?s care impacted by: Other (Gout) Discharge Plan Discharge Clinical Impression: Gout attack, Acute pain of left wrist Patient Disposition: Home, Self-Care Instructions: Low Purine Diet (ED), Gout (ED) Prescriptions: New prednisone 20 mg tablet 40 mg PO DAILY 5 Days Qty: 10 1RF hydrocodone-acetaminophen 5-325 mg tablet 1 tab PO Q8H Qty: 14 0RF Rx Instructions: Partial Fill upon patient request. No Action cephalexin 500 mg tablet 500 mg PO QID 7 Days Qty: 28 0RF prednisone 20 mg tablet 60 mg PO DAILY 7 Days Qty: 21 0RF multivitamin Tablet 1 tab PO DAILY calcium carbonate 500 mg calcium (1,250 mg) Tablet 500 mg PO BID Acidophilus Capsule 10,000 mmu cells PO DAILY atorvastatin 40 mg Tablet 40 mg PO BEDTIME Qty: 30 0RF lisinopril 20 mg Tablet 20 mg PO DAILY Qty: 30 0RF Protocol: Hold for SBP< HOLD for SBP < : 90 aspirin 81 mg Tablet,Chewable 81 mg PO DAILY Qty: 30 0RF Referrals: Rima Epsinoza MD [Primary Care Provider] - 2 days Stand Alone Forms: Work/School Release
[2022-07-15] MEDS: predniSONE 20 MG TABLET 60 MG PO (10:02)
== END 2022-07-15 10:07 | disposition home or self-care (01) ==
PROVIDERS: Emergency Provider Emergency Medicine; PCP Internal Medicine
DX: M10.9 Gout, unspecified (principal); M25.532 Pain in left wrist; Z79.899 Other long term (current) drug therapy
CPT/HCPCS: 99283

== ENCOUNTER 2023-09-11 03:41 | Emergency (ER) | payer OTHER, SELFPAY ==
--- NOTE | ~2023-09-11 | XR_ITS ---
EXAMINATION: XR ANKLE, RIGHT CLINICAL INFORMATION: Right ankle pain, history of gout COMPARISON: None available. TECHNIQUE: AP, lateral, and mortise views of the right ankle. FINDINGS: There is no evidence of fracture or dislocation. There is soft tissue swelling more prominent laterally. Ankle mortise is maintained. There are no erosive changes there is posterior calcaneal spurring. XR/XR ankle RT 2V IMPRESSION: Soft tissue swelling and posterior calcaneal spurring.
[2023-09-11 03:43] VITALS: BP 165/118; PULSE 93; RESP 18; TEMP 36.5; O2SAT 98; BMI 37.1
--- NOTE | 2023-09-11 08:22 | ED.EXTPRO ---
HPI - Extremity Problem General Chief complaint: Extremity Problem Stated complaint: rt ankle pain Time Seen by Provider: 09/11/23 08:21 Source: patient Mode of arrival: ambulatory Limitations: no limitations History of Present Illness ED Provider: Georges Baird NP HPI Narrative: Patient is a 48-year-old female with history of gout presenting to the emergency department with complaint of right ankle pain and swelling since yesterday. Reports symptoms feel typical of a gout flare. States she can not take indomethacin as she has an allergy. Denies any trauma or other injury. MD Complaint: joint swelling and joint pain Onset (ago): day(s) Pain Consistency: constant Location: right and lower extremity Quality: aching Radiation: none Relieving factors: rest Exacerbating factors: weight bearing, walking and palpation Associated symptoms: denies other symptoms Context: history of gout Related Data Home Medications ?Medication ?Instructions ?Recorded ?Confirmed Lactobacillus acidophilus 10,000 mmu cells PO DAILY 10/08/21 10/08/21 (Acidophilus capsule) calcium carbonate 500 mg PO BID 10/08/21 10/08/21 multivitamin 1 tab PO DAILY 10/08/21 10/08/21 Previous Rx's ?Medication ?Instructions ?Recorded aspirin 81 mg chewable tablet 81 mg PO DAILY #30 tabs 10/09/21 atorvastatin 40 mg tablet 40 mg PO BEDTIME #30 tabs 10/09/21 lisinopril 20 mg tablet 20 mg PO DAILY #30 tabs 10/09/21 cephalexin 500 mg tablet 500 mg PO QID 7 days #28 tabs 10/17/21 prednisone 20 mg tablet 60 mg (3 x 20 mg) PO DAILY 7 days 12/20/21 #21 tabs hydrocodone 5 mg-acetaminophen 325 1 tab PO Q8H #14 tabs 07/15/22 mg tablet prednisone 20 mg tablet 40 mg (2 x 20 mg) PO DAILY 07/15/22 inflammation/gout 5 days #10 tabs prednisone 20 mg tablet 20 mg PO DAILY #18 tabs 09/11/23 Allergies Allergy/AdvReac Type Severity Reaction Status Date / Time acetaminophen Allergy Rash Verified 09/11/23 03:45 indomethacin Allergy Rash Verified 09/11/23 03:45 Review of Systems Review of Systems: As per HPI. Yes all other systems are reviewed and are negative Constitutional: Constitutional: Reports as per HPI PMFSH Past Medical History Medical History Cerebral infarction Gout HTN (hypertension) Hypertensive urgency Stroke Uncontrolled hypertension Weakness of right upper extremity Surgical History History of hysterectomy Family History Family History Mother Hypertension Stroke Social History Social History Alcohol intake: never Patient Tobacco Use Status: Never used Tobacco Substance Use Type: Marijuana Advance Directives Date on File: 10/10/21 service: No Current occupational status: employed Physical Exam Vital Signs: Vital Signs: Last Vital Signs Temp 97.7 F 09/11/23 03:43 Pulse 93 09/11/23 03:43 Resp 18 09/11/23 03:43 BP 165/118 H 09/11/23 03:43 Pulse Ox 98 09/11/23 03:43 O2 Del Method Room Air 09/11/23 03:43 BMI result Body Mass Index 37.1 Vital signs have been reviewed and appear to be correct. Blood pressure elevated. Heart rate normal. Respiratory rate normal. Temperature normal. Oxygen saturation normal. Const: General: cooperative, healthy appearing and no acute distress Orientation/consciousness: oriented to person, oriented to place, oriented to time and patient oriented x3 Limitations: no limitations HEENT: Head: Yes normocephalic and Yes atraumatic Ears: external ears normal General nose exam: Normal external nose present Face and sinus: Yes face symmetric Mouth: oropharynx normal and moist mucous membranes Throat: Yes uvula midline Eyes: Pupils: Equal, round and reactive pupils present Neck: Neck: Yes normal visual inspection and Yes supple Resp: Effort & Inspection: normal respiratory effort and able to speak in complete sentences Auscultation: clear to auscultation bilaterally Cardio: Rate: regular rate Rhythm: regular rhythm Heart sounds: S1 normal heart sound present and S2 normal heart sound present Skin: General skin exam: elasticity normal and turgor normal Neuro: General: oriented to person, oriented to place, oriented to time, patient oriented x3, moves all extremities, no focal motor deficits and CN's II-XI intact bilaterally Cranial nerves: Yes Equal, round and reactive pupils present Cognition (Neuro): normal cognition Extrem: General: Yes full ROM, Yes no pedal edema and Yes no calf tenderness Right lower extremity: ankle Details: tenderness Location: anteromedially and anterolaterally, swelling Details: diffusely and normal ROM; no unusual warmth, no ecchymosis and no crepitus and foot Details: vascular exam Details: dorsalis pedis pulse present and posterior tibial pulse present Psych: Mental Status: mental status grossly normal Affect: normal affect Thought process: Normal thought process present Medical Decision Making Medical Decision Making MDM Narrative: Patient is a 48-year-old female with history of gout presenting to the emergency department with complaint of right ankle pain and swelling since yesterday. On exam patient is awake, A+Ox3, VS WNL, afebrile, normal neurological exam without focal deficits, physical exam findings as above. Given reported symptoms and physical exam findings, initial differential includes gout flare, strain, sprain. Do not suspect fracture/dislocation. X-ray ordered by party plan sales agent notable for soft tissue swelling, no fracture or dislocation. My interpretation is in agreement with the radiologist's interpretation. All results discussed with patient and all questions answered. Patient reports prednisone typically works well to treat her flares, will send prescription for taper dose. Advised to keep elevated while at rest. Instructed her to follow-up with PCP. Return precautions discussed. Patient verbalized understanding of and agreement with plan. Differential Diagnosis Differential Diagnoses: The differential diagnosis associated with the presentation includes As Per MDM. Independent Interpretation I performed an independent interpretation of an: Plain X-Ray Interpretation: Soft tissue swelling of right ankle, no acute fracture or dislocation Radiology Impression Discussion of test interpretation with radiology: I have reviewed the radiologist's reading. Radiologist Impression: XR/XR ankle RT 2V IMPRESSION: Soft tissue swelling and posterior calcaneal spurring. External Record Review External record reviewed: Inpatient record, Office record and Outpatient record Prescription Management I considered prescription management with: Pain Medication Discharge Plan Discharge Clinical Impression: Gout flare Qualifiers: Gout site: ankle Encounter type: initial encounter Laterality: right Patient Disposition: Home, Self-Care Instructions: Low Purine Diet (ED), Gout (ED), Swollen Ankle Joint (ED) Additional Instructions: You were evaluated in the emergency department today for right ankle pain and swelling due to gout. You are being prescribed a tapering course of prednisone, please take this as prescribed. We also recommend that you elevate your foot while at rest. Please follow-up with your primary care provider. Return to the emergency department with any new or worsening symptoms. Prescriptions: New prednisone 20 mg tablet 20 mg PO DAILY Qty: 18 0RF Rx Instructions: Take 60mg (3 tabs) x 3 days, then take 40mg (2 tabs) x 3 days, then take 20mg (1 tab) x 3 days No Action cephalexin 500 mg tablet 500 mg PO QID 7 Days Qty: 28 0RF prednisone 20 mg tablet 60 mg PO DAILY 7 Days Qty: 21 0RF multivitamin Tablet 1 tab PO DAILY calcium carbonate 500 mg calcium (1,250 mg) Tablet 500 mg PO BID Acidophilus Capsule 10,000 mmu cells PO DAILY atorvastatin 40 mg Tablet 40 mg PO BEDTIME Qty: 30 0RF lisinopril 20 mg Tablet 20 mg PO DAILY Qty: 30 0RF Protocol: Hold for SBP< HOLD for SBP < : 90 aspirin 81 mg Tablet,Chewable 81 mg PO DAILY Qty: 30 0RF prednisone 20 mg tablet 40 mg PO DAILY 5 Days Qty: 10 1RF hydrocodone-acetaminophen 5-325 mg tablet 1 tab PO Q8H Qty: 14 0RF Rx Instructions: Partial Fill upon patient request. Stand Alone Forms: Work/School Release Print Language: Mexican
[2023-09-11 08:42] VITALS: BP 170/98; PULSE 76; RESP 18; TEMP 36.7; O2SAT 98
== END 2023-09-11 08:58 | disposition home or self-care (01) ==
PROVIDERS: Emergency Provider Emergency Medicine; PCP Nurse Practitioner Primary Care
DX: M10.9 Gout, unspecified (principal); M25.571 Pain in right ankle and joints of right foot; M25.471 Effusion, right ankle; I10 Essential (primary) hypertension
CPT/HCPCS: 73600; 99283

== ENCOUNTER 2024-11-10 13:03 | Inpatient (IN) | payer OTHER, SELFPAY ==
--- NOTE | ~2024-11-10 | XR_ITS ---
EXAMINATION: XR HAND, RIGHT CLINICAL INFORMATION: RIght index swelling. osteo? COMPARISON: None available. TECHNIQUE: PA, lateral, and oblique views of the right hand. FINDINGS: Soft tissue swelling is noted involving the second digit. On the lateral view, there is possible periosteal new bone formation involving the volar aspect of the proximal metadiaphysis of the middle phalanx. There are moderate marginal osteophytes involving the PIP joint of the fifth digit and small osteophytes involving the DIP joint. There is ulnar minus variance. XR/XR hand RT 2V IMPRESSION: There is soft tissue swelling involving the second digit. There is evidence of faint periosteal new bone formation along the volar aspect of the proximal metadiaphysis the middle phalanx that could be related to infection or trauma. Osteoarthritis of the fifth digit. Electronically signed by: David Delgado MD 11/10/2024 01:46 PM EDT
[2024-11-10 13:25] VITALS: BP 144/87; PULSE 104; RESP 16; TEMP 36.9; O2SAT 97; BMI 34.8
--- NOTE | 2024-11-10 13:30 | ED.GENADULT ---
HPI - General Adult General Chief complaint: Animal Bite Stated complaint: Swollen finger from a cat scratch Time Seen by Provider: 11/10/24 15:22 Source: patient Mode of arrival: ambulatory Limitations: no limitations History of Present Illness ED Provider: MARQUISE KOO PA-C HPI narrative: 49 year old [id number] female with pmhx significant for breast cancer (in remission, not currently on chemo), gout, HLD, HTN, CVA presents to the ED today for evaluation of pain/swelling to right index finger x4 days. Patient states that her kitten scratched her right index finger 4 days ago. Since this time, the finger has become more swollen and painful. She is unable to bend the finger without pain. Denies any drainage from the area. Patient has tried ice packs, Tylenol and rubbing alcohol at home without improvement. Denies fever, chills. Denies history of diabetes. Related Data Home Medications ?Medication ?Instructions ?Recorded ?Confirmed multivitamin 1 tab PO DAILY 10/08/21 11/10/24 allopurinol 300 mg tablet 300 mg PO DAILY PRN Gout 11/10/24 11/10/24 amlodipine 5 mg-benazepril 20 mg 1 cap PO DAILY 11/10/24 11/10/24 capsule colchicine 0.6 mg tablet 0.6 mg PO DAILY PRN Gout 11/10/24 11/10/24 levothyroxine 125 mcg tablet 125 mcg PO DAILY@0600 11/10/24 11/10/24 Previous Rx's ?Medication ?Instructions ?Recorded atorvastatin 40 mg tablet 40 mg PO BEDTIME #30 tabs 10/09/21 Allergies Allergy/AdvReac Type Severity Reaction Status Date / Time amlodipine (From [facility]) Allergy Swelling Verified 11/10/24 13:28 indomethacin Allergy Rash Verified 09/11/23 03:45 Review of Systems Review of Systems: Yes all other systems are reviewed and are negative PMFSH Past Medical History Attestation statement: The following information was validated with the patient. Source: old records reviewed and nursing notes reviewed Medical History Obesity (BMI 30.0-34.9) Uncontrolled hypertension Cerebral infarction Stroke Weakness of right upper extremity Hypertensive urgency Gout HTN (hypertension) Surgical History History of hysterectomy Family History Family History Mother Hypertension Stroke Social History Social History Household Members: Family Housing: House Do you presently have visiting nurse or other home services: No Alcohol intake: never Patient Tobacco Use Status: Never used Tobacco Substance Use Type: Marijuana Advance Directives Date on File: 10/10/21 service: No Current occupational status: employed Physical Exam ED Vital Signs: Vital Signs - 24 hr 11/10/24 13:25 11/10/24 15:18 Temperature 98.4 F 98.4 F Pulse Rate 104 H 91 Respiratory Rate 16 20 Blood Pressure 144/87 H 130/93 H Pulse Oximetry 97 99 Oxygen Delivery Method Room Air Room Air BMI result Body Mass Index 34.8 Hypertensive, tachycardic General: Well appearing, in no acute distress. Skin: Warm, dry, intact. No rashes or lesions. Head: Normocephalic, atraumatic. EENT: Hearing is intact b/l. Conjunctiva clear. Sclera is anicteric. PERRLA. EOM intact. Moist mucous membranes.? Cardiac: Chest wall symmetric. RRR Lungs: Normal respiratory effort without accessory muscle use. CTA bilaterally Ext: +noted swelling to right 2nd digit with scratch nathalie noted to radial aspect of right 2nd digit at PIP. No active drainage from the area. No palpable fluctuance. There is pain with passive extension. Tender to palpation along flexor tendon sheath. Pain with axial loading. 2+ radial pulse. + Neuro: AOx3. Normal speech. Ambulating with steady gait. Course Course Course Narrative: RME: 49 year female presents to ED for right index finger swollen after cat scratch that occurred 3 days ago. She denies any fever or chills. On exam fingers significantly swollen in the unable to flex or extend. Labs x-ray ordered Reevaluation(s) Reevaluation #1: 8642 -- CBC without leukocytosis. Normocytic anemia, H&H above transfusion threshold. ESR elevated to 97, CRP elevated to 3.18. She is hyperkalemic to 5.4. EKG ordered. She is asymptomatic, denies any chest pain. Lokelma ordered. Kidney function elevated with BUN of 34 and creatinine 1.67. IV fluids ordered. Lactic WNL. Liver function at baseline. X-ray right hand showing soft tissue swelling involving the 2nd digit with evidence of faint periosteal new bone formation along the volar aspect of the proximal metadiaphysis in the middle phalanx that could be related to infection or trauma. > physical exam is concerning for tenosynovitis. Criteria present. Discussed with ortho SARAH Maravilla along with hospitalist Dr. Moreira - patient will be admitted to medicine for further management. A crack zone and vancomycin ordered. No concern for sepsis at this time. Medications Administered Generic Name Dose Route Start Last Admin Trade Name Freq PRN Reason Stop Dose Admin Atorvastatin Calcium 40 mg 11/10/24 21:00 11/10/24 21:16 Atorvastatin Calcium 40 Mg Tablet PO 40 mg BEDTIME NADINE Administration Ampicillin Sodium/Sulbactam 100 mls @ 200 mls/hr 11/11/24 02:00 11/11/24 02:24 Sodium 3 gm/ Sodium Chloride IV Infused Q6H NADINE Infusion Levothyroxine Sodium 125 mcg 11/11/24 06:00 11/11/24 05:36 Levothyroxine Sodium 125 Mcg Tablet PO 125 mcg DAILY@0600 NADINE Administration Sodium Chloride 3 ml 11/11/24 00:00 11/11/24 00:08 0.9 % Sodium Chloride Flush 3 Ml Syringe IVFLUSH Not Given QSHIFT NADINE Discontinued Medications Generic Name Dose Route Start Last Admin Trade Name Freq PRN Reason Stop Dose Admin Ceftriaxone Sodium 1 gm 11/10/24 16:02 11/10/24 16:35 Ceftriaxone Sodium 1 Gm Vial IVPUSH 11/10/24 16:03 1 gm ONCE ONE Administration Diphtheria/Tetanus/Acell Pertussis 0.5 ml 11/10/24 17:49 11/10/24 18:16 Diphth,Pertus(Acell),Tet Adult 0.5 Ml Syringe IM 11/10/24 17:50 0.5 ml .ONCE ONE Administration Sodium Chloride 1,000 mls @ 999 mls/hr 11/10/24 16:00 11/10/24 18:39 Ns IV 11/10/24 17:00 Infused .Q1H1M NADINE Infusion Vancomycin HCl 2,000 mg in 500 mls @ 250 mls/hr 11/10/24 16:02 11/10/24 19:36 Vancomycin/Ns IV 11/10/24 18:01 Infused ONCE ONE Infusion Ampicillin Sodium/Sulbactam 100 mls @ 200 mls/hr 11/10/24 18:00 11/10/24 21:29 Sodium 3 gm/ Sodium Chloride IV Infused Q6H NADINE Infusion Sodium Zirconium Cyclosilicate 5 gm 11/10/24 16:08 11/10/24 16:34 Sodium Zirconium Cyclosilicate 5 Gm Powd.Pack PO 11/10/24 16:09 5 gm ONCE ONE Administration Medical Decision Making Medical Decision Making [facility] Narrative: 49 year old [id number] female with pmhx significant for breast cancer (in remission, not currently on chemo), gout, HLD, HTN, CVA presents to the ED today for evaluation of pain/swelling to right index finger x4 days. Vital signs show tachycardia to 104, hypertensive to 144/87. She is afebrile. She is well-appearing and in no acute distress. On exam, noted swelling to right 2nd digit with scratch nathalie noted to radial aspect of right 2nd digit at PIP. No active drainage from the area. No palpable fluctuance. There is pain with passive extension. Tender to palpation along flexor tendon sheath. Pain with axial loading. 2+ radial pulse. Differential diagnosis includes cellulitis, tenosynovitis, fracture, osteomyelitis Plan for labs, inflammatory markers, x-rays and re-evaluation Differential Diagnosis Differential Diagnoses: The differential diagnosis associated with the presentation includes As above Admission/Observation Not indicated Lab Data [facility] Lab Attestation statement: I reviewed the patient's lab results. As above 11/11/24 05:36 11/11/24 05:36 Labs: Lab Results 11/10/24 11/10/24 Range/Units 13:38 16:22 WBC 8.6 (4.8-10.8) X10*3/uL RBC 3.71 L (4.20-5.50) X10*6/uL Hgb 10.7 L (12.0-16.0) g/dl Hct 33.9 L (37.0-47.0) % MCV 91.4 (80.0-98.0) fL MCH 28.8 (27.0-33.0) pg MCHC 31.6 (31.0-35.0) g/dl RDW 15.2 (11.0-16.0) % Plt Count 425 H D (160-400) X10*3/uL MPV 8.8 L (9.4-12.3) fL Immature Gran % (Auto) 0.5 H (0.0-0.4) % Neut % (Auto) 66.1 (45-73) % Lymph % (Auto) 26.6 (20-40) % [place] % (Auto) 4.1 (2-11) % Eos % (Auto) 2.4 (0-4) % Baso % (Auto) 0.3 (0-2) % Lymph # (Auto) 2.3 (1.2-4.9) X10*3/uL [place] # (Auto) 0.4 (0.1-1.2) X10*3/uL Eos # (Auto) 0.2 (0.0-0.4) X10*3/uL Baso # (Auto) 0.0 (0.0-0.2) X10*3/uL Abs Immat Gran (auto) 0.04 H (0.00-0.03) X10*3/uL Absolute Neuts (auto) 5.7 (2.0-8.3) x10*3/uL Absolute Nucleated RBC 0.000 (0.0-0.012) X10*3/uL Nucleated RBC % (auto) 0.0 (0.0-0.2) /100WBC ESR 97 H (0-20) MM/HR Sodium 145 (135-145) mmol/L Potassium 5.4 H (3.3-5.1) mmol/L Chloride 105 (96-108) mmol/L Carbon Dioxide 29 (22-29) mmol/L Anion Gap 16 (12-20) BUN 34 H (9-16) mg/dL Creatinine 1.67 H (0.5-1.4) mg/dL Estim Creat Clear Calc 50.2 Estimated GFR 33 Random Glucose 94 (60-115) mg/dL Lactic Acid 0.9 (0.5-2.0) mmol/L Calcium 10.0 D (8.4-10.2) mg/dL Total Bilirubin 0.3 (0.0-1.0) mg/dL AST 29 (5-31) U/L ALT 21 (0-31) U/L Alkaline Phosphatase 101 (39-117) U/L C-Reactive Protein 3.18 H (< or = 0.50) mg/dL Total Protein 8.4 H (6.5-8.0) g/dL Albumin 4.4 (3.5-5.0) g/dL Independent Interpretation I performed an independent interpretation of an: Plain X-Ray Interpretation: X-ray right 2nd digit without fracture Radiology Impression Discussion of test interpretation with radiology: I have reviewed the radiologist's reading. Radiologist Impression: Date of Service: 11/10/24 Procedure(s): XR hand RT 2V Accession Number(s): [id number] cc: Tyrese Davis; Physician,Unknown ~ EXAMINATION: XR HAND, RIGHT CLINICAL INFORMATION: RIght index swelling. osteo? COMPARISON: None available. TECHNIQUE: PA, lateral, and oblique views of the right hand. FINDINGS: Soft tissue swelling is noted involving the second digit. On the lateral view, there is possible periosteal new bone formation involving the volar aspect of the proximal metadiaphysis of the middle phalanx. There are moderate marginal osteophytes involving the PIP joint of the fifth digit and small osteophytes involving the DIP joint. There is ulnar minus variance. XR/XR hand RT 2V IMPRESSION: There is soft tissue swelling involving the second digit. There is evidence of faint periosteal new bone formation along the volar aspect of the proximal metadiaphysis the middle phalanx that could be related to infection or trauma. Osteoarthritis of the fifth digit. Electronically signed by: David Delgado MD 11/10/2024 01:46 PM EDT Prescription Management I considered prescription management with: Pain Medication and Antibiotic Chronic Conditions Patient?s care impacted by: Cancer Social Determinants Patient?s care significantly limited by Social Determinants of Health including: Other Social Determinant of Health Critical Care Time Critical Care Time Critical Care Time: Yes Total Critical Care Time: 35 Attestation: Critical care time in the amount of 32 minutes has been provided to the patient in terms of direct patient care, frequent reevaluation, consultation with ortho and hospitalist, and interpretation of medical data and results, and management of potentially life-threatening conditions. This is all outside of any medical procedures. Discharge Plan Discharge Clinical Impression: Tenosynovitis Patient Disposition: Admitted As Inpatient Interventions: Admission Worksheet (ED) Last Done: 11/10/24 19:25 Discharge Date/Time: 11/10/24 21:27
[2024-11-10 13:44] LABS: MANUAL DIFF FLAG NO
[2024-11-10 13:46] LABS: Hematocrit 33.9 % (37.0-47.0); Hemoglobin 10.7 g/dl (12.0-16.0); Imm Gran Abs Auto 0.04 X10*3/uL (0.00-0.03); Imm Gran Pct Auto 0.5 % (0.0-0.4); Lymphocytes Absolute Auto 2.3 X10*3/uL (1.2-4.9); Mean Corpuscular HGB Conc 31.6 g/dl (31.0-35.0); Mean Corpuscular Hemoglobin 28.8 pg (27.0-33.0); Mean Corpuscular Volume 91.4 fL (80.0-98.0); NRBC Abs Auto 0.000 X10*3/uL (0.0-0.012); NRBC Pct Auto 0.0 /100WBC (0.0-0.2); Platelet Count 425 X10*3/uL (160-400); Red Blood Count 3.71 X10*6/uL (4.20-5.50); White Blood Count 8.6 X10*3/uL (4.8-10.8)
[2024-11-10 13:59] LABS: Alanine Aminotransferase 21 U/L (0-31); Albumin Level 4.4 g/dL (3.5-5.0); Alkaline Phosphatase 101 U/L (39-117); Anion Gap 16 (12-20); Aspartate Amino Transferase 29 U/L (5-31); Blood Urea Nitrogen 34 mg/dL (9-16); Calcium 10.0 mg/dL (8.4-10.2); Carbon Dioxide 29 mmol/L (22-29); Chloride 105 mmol/L (96-108); Creatinine Clr Calc Pharmacy 50.2; Estimated Glomerular Filt Rate 33; Potassium 5.4 mmol/L (3.3-5.1); Sodium 145 mmol/L (135-145); Total Protein 8.4 g/dL (6.5-8.0)
[2024-11-10 15:18] VITALS: BP 130/93; PULSE 91; RESP 20; TEMP 36.9; O2SAT 99
--- OUTSIDE RECORDS SUMMARY | 2024-11-10 16:21 | XMS_ITS | Clinical Summary ---
Author Organization [facility] it Address [address] [place] [id number] Care Team Providers Care Dividing Machine Operator Helper Name Role Phone Nidia Barrientos MD Primary Care Provider [phone] Surgical History Surgery Date Site/Laterality Comments HYSTERECTOMY 12/27 PROCEDURE: HISTORICAL TOTAL HYSTERECTOMY WITH BSO; COMMENT: fibroids, ovaries retained Medical History Medical History Date Comments Anemia, unspecified 2005 DX:Anemia, u nspecified; COMMENT: Fe deficiency due to menstrual blood loss Gout DX:Gout Benign essential hypertension 09/05/2016 DX :Benign essential hypertension Proteinuria DX:Proteinuria Elevated ferritin DX:Elevated fe rritin Social History Tobacco Use Types Packs/Day Years Used Date Smoking Tobacco: Never Smokeless Tobacco: Never Alcohol Use Standard Drinks/Week Comments Not Currently 0 (1 standard drink = 0.6 oz pur e alcohol) Comments Unknown Sex and Gender Information Value Date Recorded Sex Assigned at Not on file Legal Sex Female 8:46 PM EST Gender Identity Not on file Sexual Orientation Not on file Obstetrics History Plan of Treatment Health Maintenance Due Date Last Done Comments Breast Cancer Screening 1976 Hepatitis B Vaccines (1 of 3 - 19+ 3-dose series) 1995 DTaP,Tdap,and Td Vaccines (2 - Td or Tdap) 05/21/2018 05/21/2008 COVID-19 Vaccine ( - 2023-2 5 season) 2023 Depression Screening 04/22/2024 Influenza Vaccine (#1) 2024 HIB Vaccines Aged Out No longer eligi ble based on patient's age to complete this topic HPV Vaccines Aged Out No longer eligi ble based on patient's age to complete this topic Hepatitis A Vaccines Aged Out No long er eligible based on patient's age to complete this topic IPV Vaccines Aged Out No longer eligi ble based on patient's age to complete this topic MMR Vaccines Aged Out No longer eligi ble based on patient's age to complete this topic Meningococcal ACWY Vaccine Aged Out N o longer eligible based on patient's age to complete this topic Meningococcal B Vaccine Aged Out No l onger eligible based on patient's age to complete this topic Pneumococcal Vaccine: Pediat rics (0 to 5 Years) and At-Risk Patients (6 to 49 Years) Aged Out No longer eligi ble based on patient's age to complete this topic RSV Immunization Patients Un emi 20 months Aged Out No longer eligible b ased on patient's age to complete this topic Varicella Vaccines Aged Out No longer eligible based on patient's age to complete this topic Care Teams Dividing Machine Operator Helper Relationship Specialty Start Date End Date Nidia Barrientos MD [address] [facility] [place] [address] PCP - General Internal Medicine 10/13/20
--- NOTE | 2024-11-10 16:55 | ECG_ITS ---
Test Reason : ELEVATED SODIUM Blood Pressure : */* mmHG Vent. Rate : 83 BPM Atrial Rate : 83 BPM P-R Int : 200 ms QRS Dur : 82 ms QT Int : 384 ms P-R-T Axes : 19 -8 -15 degrees QTcB Int : 451 ms Normal sinus rhythm Minimal voltage criteria for LVH, may be normal variant ( R in aVL ) Cannot rule out Anterior infarct (cited on or before 08-Oct-2021) Abnormal ECG When compared with ECG of 08-Oct-2021 05:54, No significant change was found Referred By: Rosana De La O Electronically Signed By: Gurinder Evans
[2024-11-10] MEDS: vancomycin/NS 2,000 MG/500 ML PLAST..BAG 250 MG IV (17:09)
--- NOTE | 2024-11-10 18:05 | PHA.MEDREC ---
Addendum entered by Ron Flores, [facility] 11/10/24 18:48: med rec reviewed Original Note: Pharmacy Consult ? Medication Reconciliation Pharmacy has completed the medication reconciliation. Spoke with pt and she confirmed her medications. Per pt she uses Allopurinol and Colchicine as needed for Gout flare ups. Pt confirmed she is still taking Atorvastatin, claims shows it has not been filled since June 2024 for 90 days at [facility]; I called [facility] and they confirmed the last time it was filled was 07/14/2024 for 90.
[2024-11-10 18:06] VITALS: BP 134/88; PULSE 86; RESP 18; TEMP 36.6; O2SAT 98
[2024-11-10] MEDS: Diphth,Pertus(ACell),Tet Adult 0.5 ML SYRINGE IM (18:16)
[2024-11-10 19:25] VITALS: BP 127/85; PULSE 80; RESP 19; TEMP 36.9; O2SAT 99
--- NOTE | 2024-11-10 20:20 | PM.IMHP ---
History of Present Illness Date of Service: 11/10/24 Attending physician on admission: Jazmin Gomez Chief Complaint: Right index finger pain and swelling Carole Love is a 49 years old woman with past medical history significant for essential hypertension amlodipine-benazepril, hyperlipidemia, gout and hypothyroidism presents to the emergency department complaining of right index finger pain and swelling over the last 4 days after being scratched by a cat. She has difficulty flexing this finger. She denied any discharges from the affected area. She also denied fever, chills, headache, chest pain, shortness on breath, abdominal pain, nausea, vomiting or diarrhea. She denied tobacco smoking, alcohol abuse or illicit drug use. In the ED, she was found to have stable vital signs. There is no leukocytosis or lactic acidosis. CRP is 3.18. Hemoglobin is 10.7 and platelets 425. Creatinine is 1.67 (last creatinine in 2021 was 1.02). There is mild hyperkalemia, 5.4. ECG showed normal sinus rhythm no peaked T-waves and no acute ischemic changes. ED tx: Normal saline 1 L bolus, vancomycin 2 g IV, ceftriaxone 1 g IV, Lokelma 5 g PO Review of Systems Review of Systems: All 12 systems were reviewed and normal except as noted in HPI. [facility] Medical History (Updated 11/10/24 @ 20:53 by Jazmin Gomez MD) Obesity (BMI 30.0-34.9) Uncontrolled hypertension Cerebral infarction Stroke Weakness of right upper extremity Hypertensive urgency Gout HTN (hypertension) Family History Mother Hypertension Stroke Surgical History History of hysterectomy Social History Alcohol intake: never Patient Tobacco Use Status: Never used Tobacco Smoked in Last 30 Days: No Use of substances other than those prescribed or required for medical reasons: No Substance Use Type: Marijuana Advance Directives: Yes Advance Directives on File: Yes Advance Directives Date on File: 10/10/21 service: No Current occupational status: employed Meds Allergies Allergy/AdvReac Type Severity Reaction Status Date / Time amlodipine (From [facility]) Allergy Swelling Verified 11/10/24 13:28 indomethacin Allergy Rash Verified 09/11/23 03:45 Active Medications: Current Medications Acetaminophen (Acetaminophen 325 Mg Tablet) 975 mg PO Q6H PRN PRN Reason: Pain, Mild 1-3,fever,headache Allopurinol (Allopurinol 300 Mg Tablet) 300 mg PO DAILY PRN PRN Reason: Gout Atorvastatin Calcium (Atorvastatin Calcium 40 Mg Tablet) 40 mg PO BEDTIME NADINE Calcium Carbonate (Calcium Carbonate 750 Mg Tab.Chew) 750 mg PO Q4H PRN PRN Reason: Heartburn Hydromorphone HCl (Hydromorphone Hcl 0.5 Mg/0.5 Ml Syringe) 0.5 mg IVPUSH Q4H PRN; Protocol PRN Reason: Pain, Severe (Pain Scale 7-10) Ampicillin Sodium/Sulbactam (Sodium 3 gm/ Sodium Chloride) 100 mls @ 200 mls/hr IV Q6H [facility] Last Admin: 11/10/24 19:43 Dose: 200 mls/hr Levothyroxine Sodium (Levothyroxine Sodium 125 Mcg Tablet) 125 mcg PO DAILY@0600 [facility] Magnesium Hydroxide (Milk Of Magnesia 30 Ml Oral.Susp) 30 ml PO DAILY PRN PRN Reason: Constipation Melatonin (Melatonin 3 Mg Tablet) 6 mg PO BEDTIME PRN PRN Reason: Insomnia Multivitamins/Vitamin C (Multivitamin Tablet) 1 tab PO DAILY [facility] Oxycodone HCl (Oxycodone Hcl Immed Release 5 Mg Tablet) 5 mg PO Q6H PRN PRN Reason: Pain, Moderate(Pain Scale 4-6) Sodium Chloride (0.9 % Sodium Chloride Flush 3 Ml Syringe) 3 ml IVFLUSH QSHIFT [facility] Home Medications ?Medication ?Instructions ?Recorded ?Confirmed ?Last Taken ?Type multivitamin 1 tab PO DAILY 10/08/21 11/10/24 11/10/24 History allopurinol 300 mg tablet 300 mg PO DAILY PRN Gout 11/10/24 11/10/24 Unknown History amlodipine 5 mg-benazepril 20 mg 1 cap PO DAILY 11/10/24 11/10/24 11/10/24 History capsule colchicine 0.6 mg tablet 0.6 mg PO DAILY PRN Gout 11/10/24 11/10/24 Unknown History levothyroxine 125 mcg tablet 125 mcg PO DAILY@0600 11/10/24 11/10/24 11/10/24 History Physical Exam Vital Signs and Narrative: Vital Signs: Last Vital Signs Temp 98.4 F 11/10/24 19:25 Pulse 80 11/10/24 19:25 Resp 19 11/10/24 19:25 BP 127/85 11/10/24 19:25 Pulse Ox 99 11/10/24 19:25 O2 Del Method Room Air 11/10/24 19:25 BMI result Body Mass Index 34.8 Constitutional - Awake and Alert, No apparent distress. Obese. HEENT - PER, EOMI Heart - S1S2, RRR, No edema Lungs - Normal lung expansion, Normal respiratory effort, No respiratory distress, CTA bilaterally Abdomen - NT / ND; +BS; No rebound or guarding Extremities - right hand: Index finger edema more prominent over the PIP, tenderness to palpation, yellowish area over PIP (palm), limited flexion. Musculoskeletal - Normal inspection, normal ROM Skin - Warm/Dry Neurological - Alert & oriented x3. Moving all extremities spontaneously. Normal speech. Psychological - Appropriate affect Results Labs 11/10/24 13:38 11/10/24 13:38 Labs: Laboratory Results - last 24 hr 11/10/24 11/10/24 13:38 16:22 MCV 91.4 MCH 28.8 MCHC 31.6 RDW 15.2 Plt Count 425 H D MPV 8.8 L Immature Gran % (Auto) 0.5 H Neut % (Auto) 66.1 Lymph % (Auto) 26.6 [place] % (Auto) 4.1 Eos % (Auto) 2.4 Baso % (Auto) 0.3 Lymph # (Auto) 2.3 [place] # (Auto) 0.4 Eos # (Auto) 0.2 Baso # (Auto) 0.0 Abs Immat Gran (auto) 0.04 H Absolute Neuts (auto) 5.7 Absolute Nucleated RBC 0.000 Nucleated RBC % (auto) 0.0 ESR 97 H Anion Gap 16 Estim Creat Clear Calc 50.2 Estimated GFR 33 Random Glucose 94 Lactic Acid 0.9 Calcium 10.0 D Total Bilirubin 0.3 AST 29 ALT 21 Alkaline Phosphatase 101 C-Reactive Protein 3.18 H Total Protein 8.4 H Albumin 4.4 Imaging Radiologist's Impressions: Impressions Hand X-Ray 11/10/24 12:37 IMPRESSION: There is soft tissue swelling involving the second digit. There is evidence of faint periosteal new bone formation along the volar aspect of the proximal metadiaphysis the middle phalanx that could be related to infection or trauma. Osteoarthritis of the fifth digit. Electronically signed by: David Delgado MD 11/10/2024 01:46 PM EDT RP Assessment and Plan (1) Tenosynovitis: Status: Acute (2) Anemia: Qualifiers: Anemia type: unspecified type Qualified Code(s): D64.9 - Anemia, unspecified Status: Acute (3) Obesity (BMI 30.0-34.9): Status: Inactive (4) Elevated serum creatinine: Status: Acute (5) Hyperkalemia: Status: Acute Plan Carole Love is a 49 y/o woman admitted with: Right index finger tenosynovitis, ?Associated abscess. Ad[facility] to [facility]. Start empiric IV antibiotic therapy with Unasyn. Tdap vaccine now. Orthopedic surgery consult. Renal insufficiency, ?BERTRAM versus chronic and mild hyperkalemia. Received 1 L bolus and Lokelma in the ED. Hold benazepril. ECG showed no peaked T-waves. Recheck BNP tonight. Hyperlipidemia. Continue statin. Hypothyroidism. Continue levothyroxine. History of gout. Continue allopurinol. Obesity, class 2. BMI 34.8 kg/m2. Weight loss. Normocytic anemia, likely chronic. Will obtain anemia workup. Continue to monitor. DVT prophylaxis: Currently low risk. Ambulating well. Code status: Full Patient will need hospitalization for at least 2 midnights for right index finger tenosynovitis treatment with IV antibiotics in the setting of multiple underlying comorbidities; will need evaluation by Orthopedic surgery Service. Quality Stroke Does the patient have a stroke diagnosis?: No VTE Prior VTE?: No VTE Risk Level:: Medical - low VTE Device Contraindication: Treatment Not Indicated VTE Drug Contraindication: Treatment Not Indicated
[2024-11-10 20:40] LABS: Anion Gap 14 (12-20); Blood Urea Nitrogen 29 mg/dL (9-16); Calcium 9.3 mg/dL (8.4-10.2); Carbon Dioxide 25 mmol/L (22-29); Chloride 107 mmol/L (96-108); Creatinine Clr Calc Pharmacy 54.8; Estimated Glomerular Filt Rate 36; Potassium 4.7 mmol/L (3.3-5.1); Sodium 141 mmol/L (135-145)
--- NOTE | 2024-11-10 20:49 | PM.EVENT ---
Event Note Date of Service: 11/10/24 Event Note: Right index finger pain and swelling s/p cat scratch -please keep NPO until eval by hand/ortho in AM -IV abx Time Spent With Patient Time: Total time managing care of this patient today ____ minutes.
[2024-11-10 21:34] VITALS: BMI 35.9
[2024-11-10 21:54] VITALS: BP 143/85; PULSE 71; RESP 16; TEMP 36.4; O2SAT 98
[2024-11-10 23:58] VITALS: BP 143/67; PULSE 71; RESP 14; TEMP 36.5; O2SAT 97
[2024-11-11] VITALS (7 sets, daily range): BP systolic 119–143; BP diastolic 76–88; PULSE 59–70; RESP 12–18; TEMP 35.9–36.9; O2SAT 96–99
[2024-11-11 05:48] LABS: MANUAL DIFF FLAG NO
[2024-11-11 05:57] LABS: Hematocrit 31.5 % (37.0-47.0); Hemoglobin 10.1 g/dl (12.0-16.0); Imm Gran Abs Auto 0.04 X10*3/uL (0.00-0.03); Imm Gran Pct Auto 0.5 % (0.0-0.4); Lymphocytes Absolute Auto 1.8 X10*3/uL (1.2-4.9); Mean Corpuscular HGB Conc 32.1 g/dl (31.0-35.0); Mean Corpuscular Hemoglobin 28.9 pg (27.0-33.0); Mean Corpuscular Volume 90.3 fL (80.0-98.0); NRBC Abs Auto 0.000 X10*3/uL (0.0-0.012); NRBC Pct Auto 0.0 /100WBC (0.0-0.2); Platelet Count 392 X10*3/uL (160-400); Red Blood Count 3.49 X10*6/uL (4.20-5.50); Reticulocytes Absolute 0.061 X10*6/uL (0.026-0.095); White Blood Count 8.2 X10*3/uL (4.8-10.8)
[2024-11-11 06:15] LABS: Anion Gap 14 (12-20); Blood Urea Nitrogen 25 mg/dL (9-16); Calcium 9.8 mg/dL (8.4-10.2); Carbon Dioxide 23 mmol/L (22-29); Chloride 108 mmol/L (96-108); Creatinine Clr Calc Pharmacy 64.1; Estimated Glomerular Filt Rate 43; Iron 42 mcg/dL (30-160); Percent Iron Saturation 20 % (15-50); Potassium 4.8 mmol/L (3.3-5.1); Sodium 140 mmol/L (135-145); Total Iron Binding Capacity 209 mcg/dL (228-428); Unsaturated Iron Binding 167 ug/dL
[2024-11-11 06:31] LABS: Ferritin 951 ng/mL (10-250)
[2024-11-11 06:45] LABS: Folate 8.3 ng/mL (> or = 4.0); Vitamin B12 841 pg/mL (200-900)
[2024-11-11] MEDS: 0.9 % Sodium Chloride Flush 3 ML SYRINGE IVFLUSH ×2 (07:33→14:02)
--- NOTE | 2024-11-11 09:55 | PM.CNOR ---
History of Present Illness HPI Consult date: 11/11/24 Chief complaint: Right index finger tenosynovitis Narrative: Patient is a 49-year-old female admitted to the hospital for evaluation of pain, redness, swelling of the right index finger Patient reports that approximately 4-5 days ago she was scratched by a cat on the right index finger Patient reports that she feels she should have been evaluated immediately after the scratch, but waited until her symptoms worsened Today, the patient reports that her symptoms have improved significantly from evaluation yesterday, and that the redness and swelling have both gone down since she has received IV antibiotics Patient reports that her range of motion has improved since yesterday No other acute complaints or concerns at this time Review of Systems Review of Systems: Yes all other systems are reviewed and are negative [facility] Past Medical History Medical History (Updated 11/11/24 @ 10:10 by SARAH Serrato) Obesity (BMI 30.0-34.9) Uncontrolled hypertension Cerebral infarction Stroke Weakness of right upper extremity Hypertensive urgency Gout HTN (hypertension) Family History Family History Mother Hypertension Stroke Surgical History Surgical History History of hysterectomy Social History Social History Household Members: Family Housing: House Do you presently have visiting nurse or other home services: No Alcohol intake: never Patient Tobacco Use Status: Never used Tobacco Substance Use Type: Marijuana Advance Directives Date on File: 10/10/21 service: No Current occupational status: employed Meds Allergies Allergy/AdvReac Type Severity Reaction Status Date / Time amlodipine (From [facility]) Allergy Swelling Verified 11/10/24 13:28 indomethacin Allergy Rash Verified 09/11/23 03:45 Active Medications: Current Medications Acetaminophen (Acetaminophen 325 Mg Tablet) 975 mg PO Q6H PRN PRN Reason: Pain, Mild 1-3,fever,headache Allopurinol (Allopurinol 300 Mg Tablet) 300 mg PO DAILY PRN PRN Reason: Gout Atorvastatin Calcium (Atorvastatin Calcium 40 Mg Tablet) 40 mg PO BEDTIME [facility] Last Admin: 11/10/24 21:16 Dose: 40 mg Calcium Carbonate (Calcium Carbonate 750 Mg Tab.Chew) 750 mg PO Q4H PRN PRN Reason: Heartburn Hydromorphone HCl (Hydromorphone Hcl 0.5 Mg/0.5 Ml Syringe) 0.5 mg IVPUSH Q4H PRN; Protocol PRN Reason: Pain, Severe (Pain Scale 7-10) Ampicillin Sodium/Sulbactam (Sodium 3 gm/ Sodium Chloride) 100 mls @ 200 mls/hr IV Q6H [facility] Last Infusion: 11/11/24 08:10 Dose: Infused Levothyroxine Sodium (Levothyroxine Sodium 125 Mcg Tablet) 125 mcg PO DAILY@0600 [facility] Last Admin: 11/11/24 05:36 Dose: 125 mcg Magnesium Hydroxide (Milk Of Magnesia 30 Ml Oral.Susp) 30 ml PO DAILY PRN PRN Reason: Constipation Melatonin (Melatonin 3 Mg Tablet) 6 mg PO BEDTIME PRN PRN Reason: Insomnia Multivitamins/Vitamin C (Multivitamin Tablet) 1 tab PO DAILY [facility] Last Admin: 11/11/24 07:33 Dose: 1 tab Oxycodone HCl (Oxycodone Hcl Immed Release 5 Mg Tablet) 5 mg PO Q6H PRN PRN Reason: Pain, Moderate(Pain Scale 4-6) Sodium Chloride (0.9 % Sodium Chloride Flush 3 Ml Syringe) 3 ml IVFLUSH QSHIFT [facility] Last Admin: 11/11/24 07:33 Dose: 3 ml Home Medications ?Medication ?Instructions ?Recorded ?Confirmed ?Last Taken ?Type multivitamin 1 tab PO DAILY 10/08/21 11/10/24 11/10/24 History allopurinol 300 mg tablet 300 mg PO DAILY PRN Gout 11/10/24 11/10/24 Unknown History amlodipine 5 mg-benazepril 20 mg 1 cap PO DAILY 11/10/24 11/10/24 11/10/24 History capsule colchicine 0.6 mg tablet 0.6 mg PO DAILY PRN Gout 11/10/24 11/10/24 Unknown History levothyroxine 125 mcg tablet 125 mcg PO DAILY@0600 11/10/24 11/10/24 11/10/24 History Physical Exam Vital Signs: Vital Signs: Last Vital Signs Temp 96.8 F 11/11/24 07:33 Pulse 66 11/11/24 07:33 Resp 18 11/11/24 07:33 BP 136/88 11/11/24 07:33 Pulse Ox 99 11/11/24 07:33 O2 Del Method Room Air 11/11/24 07:33 BMI result Body Mass Index 35.9 Extrem: Other: Patient is alert, oriented, and in no acute distress. Neuro: Normal sensation of the tips of all digits of the right hand at this time Vascular: Cap refill brisk Pain: Tenderness to palpation about the volar and proximal aspect of the right index finger Pain with attempted active flexion Minimal discomfort with passive extension of the right index finger ROM: Patient is able to get approximately 50% of the way of making a closed fist Patient can be fully extended with the right index finger without difficulty Skin: No lacerations or abrasions. General: There is noted to be some edema, erythema, and a focal area of purulence over the volar and proximal aspect of the right index finger Psych: Appears grossly normal Affect normal Attitude cooperative Results Labs 11/11/24 05:36 11/11/24 05:36 Labs: Abnormal lab results 11/10/24 11/10/24 11/11/24 Range/Units 13:38 20:21 05:36 RBC 3.71 L 3.49 L (4.20-5.50) X10*6/uL Hgb 10.7 L 10.1 L (12.0-16.0) g/dl Hct 33.9 L 31.5 L (37.0-47.0) % Plt Count 425 H D (160-400) X10*3/uL MPV 8.8 L 9.0 L (9.4-12.3) fL Immature Gran % (Auto) 0.5 H 0.5 H (0.0-0.4) % Abs Immat Gran (auto) 0.04 H 0.04 H (0.00-0.03) X10*3/uL ESR 97 H (0-20) MM/HR Immature Retic Fraction 25.9 H (3.0-15.9) % Potassium 5.4 H (3.3-5.1) mmol/L BUN 34 H 29 H 25 H (9-16) mg/dL Creatinine 1.67 H 1.53 H (0.5-1.4) mg/dL TIBC 209 L (228-428) mcg/dL Ferritin 951 H (10-250) ng/mL C-Reactive Protein 3.18 H (< or = 0.50) mg/dL Total Protein 8.4 H (6.5-8.0) g/dL H & H 11/10/24 11/11/24 Range/Units 13:38 05:36 Hgb 10.7 L 10.1 L (12.0-16.0) g/dl Hct 33.9 L 31.5 L (37.0-47.0) % All other labs normal. Assessment and Plan (1) Abscess of right index finger: Status: Acute Plan 1. Abscess of right index finger Index of suspicion for flexor tenosynovitis extremely low Continue IV antibiotics Continue pain management I educated the patient about the condition. I discussed both operative and nonoperative treatment options. The patient would like to proceed with surgery. The risks and benefits of operative treatment were discussed with the patient and the patient wishes to proceed with surgery. These risks include, but are not limited to, risk of damage to blood vessels, nerves, tendons, infection, recurrence, incomplete relief of preoperative symptoms, persistent pain, possible need for further surgery, and the risks associated with regional blocks and/or anesthesia. Plan is to take the patient to the operating room on 11/12/2024 following procedures: 1. I and D of right index finger NPO at midnight for surgery tomorrow Continue with all other recommendations per Medicine Procedures Date of Service Date of Service: 11/11/24
--- NOTE | 2024-11-11 12:57 | HO.ANESPROP2 ---
Documented by User: Janeth Doe NP 11/11/24 13:52 HPI - Anesthesia Eval Consult details Narrative: 49 yr old female for right I&D of index finger seen while inpt No recent illness No CP/SOB with moderate physical activity at gym regularly H/O CVA in 2021, on ASA, statin s/p hysterectomy PMFSH Active Problems Active Problems: All Active Problems Abscess of right index finger (Acute) Hyperkalemia (Acute) Elevated serum creatinine (Acute) Anemia (Acute) Tenosynovitis (Acute) Past Medical History Medical History Obesity (BMI 30.0-34.9) Uncontrolled hypertension Cerebral infarction Stroke Weakness of right upper extremity Hypertensive urgency Gout HTN (hypertension) Family History Family History Mother Hypertension Stroke Family history of problems with anesthesia: No Surgical History Surgical History History of hysterectomy History of Problems with Anesthesia: No Social History Social History Household Members: Family Housing: House Do you presently have visiting nurse or other home services: No Alcohol intake: never Patient Tobacco Use Status: Never used Tobacco Substance Use Type: Marijuana Advance Directives Date on File: 10/10/21 service: No Current occupational status: employed Meds Allergies Allergy/AdvReac Type Severity Reaction Status Date / Time amlodipine (From [facility]) Allergy Swelling Verified 11/10/24 13:28 indomethacin Allergy Rash Verified 09/11/23 03:45 Active Medications: Current Medications Acetaminophen (Acetaminophen 325 Mg Tablet) 975 mg PO Q6H PRN PRN Reason: Pain, Mild 1-3,fever,headache Allopurinol (Allopurinol 300 Mg Tablet) 300 mg PO DAILY PRN PRN Reason: Gout Atorvastatin Calcium (Atorvastatin Calcium 40 Mg Tablet) 40 mg PO BEDTIME [facility] Last Admin: 11/10/24 21:16 Dose: 40 mg Calcium Carbonate (Calcium Carbonate 750 Mg Tab.Chew) 750 mg PO Q4H PRN PRN Reason: Heartburn Hydromorphone HCl (Hydromorphone Hcl 0.5 Mg/0.5 Ml Syringe) 0.5 mg IVPUSH Q4H PRN; Protocol PRN Reason: Pain, Severe (Pain Scale 7-10) Ampicillin Sodium/Sulbactam (Sodium 3 gm/ Sodium Chloride) 100 mls @ 200 mls/hr IV Q6H [facility] Last Infusion: 11/11/24 08:10 Dose: Infused Levothyroxine Sodium (Levothyroxine Sodium 125 Mcg Tablet) 125 mcg PO DAILY@0600 [facility] Last Admin: 11/11/24 05:36 Dose: 125 mcg Magnesium Hydroxide (Milk Of Magnesia 30 Ml Oral.Susp) 30 ml PO DAILY PRN PRN Reason: Constipation Melatonin (Melatonin 3 Mg Tablet) 6 mg PO BEDTIME PRN PRN Reason: Insomnia Multivitamins/Vitamin C (Multivitamin Tablet) 1 tab PO DAILY [facility] Last Admin: 11/11/24 07:33 Dose: 1 tab Oxycodone HCl (Oxycodone Hcl Immed Release 5 Mg Tablet) 5 mg PO Q6H PRN PRN Reason: Pain, Moderate(Pain Scale 4-6) Sodium Chloride (0.9 % Sodium Chloride Flush 3 Ml Syringe) 3 ml IVFLUSH QSHIFT [facility] Last Admin: 11/11/24 07:33 Dose: 3 ml Home Medications ?Medication ?Instructions ?Recorded ?Confirmed ?Last Taken ?Type multivitamin 1 tab PO DAILY 10/08/21 11/10/24 11/10/24 History allopurinol 300 mg tablet 300 mg PO DAILY PRN Gout 11/10/24 11/10/24 Unknown History amlodipine 5 mg-benazepril 20 mg 1 cap PO DAILY 11/10/24 11/10/24 11/10/24 History capsule colchicine 0.6 mg tablet 0.6 mg PO DAILY PRN Gout 11/10/24 11/10/24 Unknown History levothyroxine 125 mcg tablet 125 mcg PO DAILY@0600 11/10/24 11/10/24 11/10/24 History Exam Height,Weight and Vital Signs: Height 5 ft 7 in Weight 104 kg Last Vital Signs Temp 96.9 F 11/11/24 11:47 Pulse 60 11/11/24 11:47 Resp 18 11/11/24 11:47 BP 143/83 H 11/11/24 11:47 Pulse Ox 97 11/11/24 11:47 O2 Del Method Room Air 11/11/24 11:47 Pertinent Lab Results Pertinent Lab Results: Laboratory Tests 11/10/24 11/10/24 11/10/24 13:38 16:22 20:21 WBC 8.6 RBC 3.71 L Hgb 10.7 L Hct 33.9 L MCV 91.4 MCH 28.8 MCHC 31.6 RDW 15.2 Plt Count 425 H D MPV 8.8 L Immature Gran % (Auto) 0.5 H Neut % (Auto) 66.1 Lymph % (Auto) 26.6 [place] % (Auto) 4.1 Eos % (Auto) 2.4 Baso % (Auto) 0.3 Lymph # (Auto) 2.3 [place] # (Auto) 0.4 Eos # (Auto) 0.2 Baso # (Auto) 0.0 Abs Immat Gran (auto) 0.04 H Absolute Neuts (auto) 5.7 Absolute Nucleated RBC 0.000 Nucleated RBC % (auto) 0.0 ESR 97 H Absolute Retic Percent Retic Immature Retic Fraction Retic Hgb Equivalent Sodium 145 141 Potassium 5.4 H 4.7 Chloride 105 107 Carbon Dioxide 29 25 Anion Gap 16 14 BUN 34 H 29 H Creatinine 1.67 H 1.53 H Estim Creat Clear Calc 50.2 54.8 Estimated GFR 33 36 Random Glucose 94 113 Lactic Acid 0.9 Calcium 10.0 D 9.3 D Iron TIBC % Saturation Unsat Iron Binding Ferritin Total Bilirubin 0.3 AST 29 ALT 21 Alkaline Phosphatase 101 C-Reactive Protein 3.18 H Total Protein 8.4 H Albumin 4.4 Vitamin B12 Folate 11/11/24 05:36 WBC 8.2 RBC 3.49 L Hgb 10.1 L Hct 31.5 L MCV 90.3 MCH 28.9 MCHC 32.1 RDW 15.1 Plt Count 392 MPV 9.0 L Immature Gran % (Auto) 0.5 H Neut % (Auto) 69.0 Lymph % (Auto) 22.6 [place] % (Auto) 4.2 Eos % (Auto) 3.3 Baso % (Auto) 0.4 Lymph # (Auto) 1.8 [place] # (Auto) 0.3 Eos # (Auto) 0.3 Baso # (Auto) 0.0 Abs Immat Gran (auto) 0.04 H Absolute Neuts (auto) 5.6 Absolute Nucleated RBC 0.000 Nucleated RBC % (auto) 0.0 ESR Absolute Retic 0.061 Percent Retic 1.8 Immature Retic Fraction 25.9 H Retic Hgb Equivalent 34.3 Sodium 140 Potassium 4.8 Chloride 108 Carbon Dioxide 23 Anion Gap 14 BUN 25 H Creatinine 1.33 Estim Creat Clear Calc 64.1 Estimated GFR 43 Random Glucose 86 Lactic Acid Calcium 9.8 Iron 42 TIBC 209 L % Saturation 20 Unsat Iron Binding 167 Ferritin 951 H Total Bilirubin AST ALT Alkaline Phosphatase C-Reactive Protein Total Protein Albumin Vitamin B12 841 Folate 8.3 Narrative Narrative: EKG 11/10/24 NSR, LVH, rate 81 Echo 2021 Conclusions: 1. Normal LV systolic function with mild LVH with impaired relaxation filling pattern 2. Trivial aortic regurgitation and mild mitral regurgitation 3. No evidence of intracardiac shunting 4. Normal RV systolic pressure 5. Moderate atherosclerotic changes in the ascending and descending thoracic aorta noted 6. No gross pericardial effusion Airway Mallampati Class: I TM Dist: >3cm Neck ROM: Full Loose/Missing/Broken Teeth: No (tongue piercing) Heart: RRR Lungs: CTAB Assessment and Plan Final Anesthetic Review Family History of Problems with Anesthesia: No History of Problems with Anesthesia: No Documented by User: Jyoti Soni MD 11/12/24 11:21 [facility] Past Medical History Medical History Obesity (BMI 30.0-34.9) Uncontrolled hypertension Cerebral infarction Stroke Weakness of right upper extremity Hypertensive urgency Gout HTN (hypertension) Family History Family History Mother Hypertension Stroke Surgical History Surgical History History of hysterectomy Social History Social History Household Members: Family Housing: House Do you presently have visiting nurse or other home services: No Alcohol intake: never Patient Tobacco Use Status: Never used Tobacco Substance Use Type: Marijuana Advance Directives Date on File: 10/10/21 service: No Current occupational status: employed Meds Allergies Allergy/AdvReac Type Severity Reaction Status Date / Time amlodipine (From [facility]) Allergy Swelling Verified 11/10/24 13:28 indomethacin Allergy Rash Verified 09/11/23 03:45 Home Medications ?Medication ?Instructions ?Recorded ?Confirmed ?Last Taken ?Type multivitamin 1 tab PO DAILY 10/08/21 11/10/24 11/10/24 History allopurinol 300 mg tablet 300 mg PO DAILY PRN Gout 11/10/24 11/10/24 Unknown History amlodipine 5 mg-benazepril 20 mg 1 cap PO DAILY 11/10/24 11/10/24 11/10/24 History capsule colchicine 0.6 mg tablet 0.6 mg PO DAILY PRN Gout 11/10/24 11/10/24 Unknown History levothyroxine 125 mcg tablet 125 mcg PO DAILY@0600 11/10/24 11/10/24 11/10/24 History Assessment and Plan Assessment Anesthesia Assessment: Anesthesia Plan Discussed and Chart Reviewed Final Anesthetic Review NPO: Yes ASA Class: III Final Preanesthetic Review: No Changes in Pt Med Stat, Meds/Allgs Chart Reviewed, Consent Obtained/Reviewed and Anes Risks/Benef Reviewed Patient Risk: Intermediate Procedure Risk: Low Anesthetic Plan Anesthetic Plan: GA Disposition: Standard PACU
--- NOTE | 2024-11-11 15:13 | MHC.CM.PN ---
PATIENT LIVES IN AN APARTMENT W/ AND 11 YEAR OLD DAUGHTER. FUNCTIONALLY INDEPENDENT. DENIES USE OF DME OR SERVICES. PCP AUGUSTO BONNER MD REPORTS SHE HAS AN HCP LISTING HER , [facility], [facility]. COPY REQUESTED. DP: ANTICIPATE HOME SELF CARE. [facility] FOR SELF TRANSPORT IF APPROPRIATE. CM WILL CONTINUE TO FOLLOW.
--- NOTE | 2024-11-11 17:19 | HO.PM.IMPN ---
Subjective Subjective Date of Service: 11/11/24 Interval History: Right index finger possible tenosynovitis Review of Systems Finger area seems similar to yesterday. Denies any new complaints. Review of Systems: Yes all other systems are reviewed and are negative Physical Exam Exam: Exam: Appearance: Alert.? Oriented X3.? cvs: rrr, [id number]. res: clear to auscultation ,no rhonchii or wheezing abd: no rebound or guarding ,nt, bs present. ext pulses present , no cyanosis . MS:right hand: Index finger edema more prominent over the PIP, tenderness to palpation, yellowish area over PIP (palm), limited flexion. Please see H and P PIC. neuro: axo3 , nonfocal. Vital Signs: Vital Signs: Last Vital Signs Temp 97.4 F 11/11/24 15:25 Pulse 68 11/11/24 15:25 Resp 14 11/11/24 15:25 BP 134/88 11/11/24 15:25 Pulse Ox 96 11/11/24 15:25 O2 Del Method Room Air 11/11/24 15:25 BMI result Body Mass Index 35.9 Objective Data Active Medications Acetaminophen (Acetaminophen 325 Mg Tablet) 975 mg PO Q6H PRN PRN Reason: Pain, Mild 1-3,fever,headache Allopurinol (Allopurinol 300 Mg Tablet) 300 mg PO DAILY PRN PRN Reason: Gout Atorvastatin Calcium (Atorvastatin Calcium 40 Mg Tablet) 40 mg PO BEDTIME [facility] Last Admin: 11/10/24 21:16 Dose: 40 mg Documented By: ASHISH Calcium Carbonate (Calcium Carbonate 750 Mg Tab.Chew) 750 mg PO Q4H PRN PRN Reason: Heartburn Hydromorphone HCl (Hydromorphone Hcl 0.5 Mg/0.5 Ml Syringe) 0.5 mg IVPUSH Q4H PRN; Protocol PRN Reason: Pain, Severe (Pain Scale 7-10) Ampicillin Sodium/Sulbactam (Sodium 3 gm/ Sodium Chloride) 100 mls @ 200 mls/hr IV Q6H [facility] Last Infusion: 11/11/24 15:09 Dose: Infused Documented By: REJI Levothyroxine Sodium (Levothyroxine Sodium 125 Mcg Tablet) 125 mcg PO DAILY@0600 [facility] Last Admin: 11/11/24 05:36 Dose: 125 mcg Documented By: LAYLA Magnesium Hydroxide (Milk Of Magnesia 30 Ml Oral.Susp) 30 ml PO DAILY PRN PRN Reason: Constipation Melatonin (Melatonin 3 Mg Tablet) 6 mg PO BEDTIME PRN PRN Reason: Insomnia Multivitamins/Vitamin C (Multivitamin Tablet) 1 tab PO DAILY [facility] Last Admin: 11/11/24 07:33 Dose: 1 tab Documented By: REJI Oxycodone HCl (Oxycodone Hcl Immed Release 5 Mg Tablet) 5 mg PO Q6H PRN PRN Reason: Pain, Moderate(Pain Scale 4-6) Sodium Chloride (0.9 % Sodium Chloride Flush 3 Ml Syringe) 3 ml IVFLUSH QSHIFT [facility] Last Admin: 11/11/24 14:02 Dose: 3 ml Documented By: REJI Labs 11/11/24 05:36 11/11/24 05:36 Labs: Laboratory Results - last 24 hr 11/10/24 11/11/24 20:21 05:36 MCV 90.3 MCH 28.9 MCHC 32.1 RDW 15.1 Plt Count 392 MPV 9.0 L Immature Gran % (Auto) 0.5 H Neut % (Auto) 69.0 Lymph % (Auto) 22.6 [place] % (Auto) 4.2 Eos % (Auto) 3.3 Baso % (Auto) 0.4 Lymph # (Auto) 1.8 [place] # (Auto) 0.3 Eos # (Auto) 0.3 Baso # (Auto) 0.0 Abs Immat Gran (auto) 0.04 H Absolute Neuts (auto) 5.6 Absolute Nucleated RBC 0.000 Nucleated RBC % (auto) 0.0 Absolute Retic 0.061 Percent Retic 1.8 Immature Retic Fraction 25.9 H Retic Hgb Equivalent 34.3 Anion Gap 14 14 Estim Creat Clear Calc 54.8 64.1 Estimated GFR 36 43 Random Glucose 113 86 Calcium 9.3 D 9.8 Iron 42 TIBC 209 L % Saturation 20 Unsat Iron Binding 167 Ferritin 951 H Vitamin B12 841 Folate 8.3 Assessment and Plan (1) BERTRAM (acute kidney injury): Status: Acute (2) Hyperkalemia: Status: Acute (3) Abscess of right index finger: Status: Acute Assessment and Plan: Carole Love is a 49 y/o woman admitted with: Right index finger tenosynovitis, ?Associated abscess. Admit to Med surge. Start empiric IV antibiotic therapy with Unasyn. Orthopedic surgery consult-plan for I and D tomorrow Renal insufficiency/hyperkalemia: ?BERTRAM versus chronic and mild hyperkalemia. Received 1 L bolus and Lokelma in the ED. Hold benazepril. Creatinine improved to 1.3, hyperkalemia resolved. Hyperlipidemia. Continue statin. Hypothyroidism. Continue levothyroxine. History of gout. Continue allopurinol. Obesity, class 2. BMI 34.8 kg/m2. Weight loss. Normocytic anemia, likely chronic. Will obtain anemia workup. Continue to monitor. DVT prophylaxis: Currently low risk. Ambulating well. Patient will need hospitalization for right index finger tenosynovitis treatment with IV antibiotics in the setting of multiple underlying comorbidities; will need evaluation by Orthopedic surgery Service. Quality Stroke Does the patient have a stroke diagnosis?: No VTE Prior VTE?: No VTE Risk Level:: Medical - low VTE Device Contraindication: Treatment Not Indicated VTE Drug Contraindication: Treatment Not Indicated
[2024-11-12] VITALS (10 sets, daily range): BP systolic 121–146; BP diastolic 76–94; PULSE 56–83; RESP 15–18; TEMP 36.1–36.6; O2SAT 96–100
[2024-11-12 06:38] LABS: Anion Gap 16 (12-20); Carbon Dioxide 25 mmol/L (22-29); Chloride 104 mmol/L (96-108); Potassium 4.6 mmol/L (3.3-5.1); Sodium 140 mmol/L (135-145)
[2024-11-12] MEDS: 0.9 % Sodium Chloride Flush 3 ML SYRINGE IVFLUSH ×3 (07:25→19:42)
--- NOTE | 2024-11-12 08:53 | P.OP_ITS ---
Operative Note Operative Note Date of Service: 11/12/24 Narrative: Operative Note Narrative: Preop diagnosis: 1. Right index finger abscess Postop diagnosis: Same Procedure: 1. Right index finger abscess I and D Surgeon: Henna Her MD [employer] Sales Representative: Monty SMITH Anesthesia: General Anesthesia Findings: Cloudy watery fluid at the abscess site Implants: None Tourniquet time: 0 minutes EBL: 5.0 ml Specimen: Cultures from right index finger abscess Drains: None Complications: None Disposition: Brought to the recovery room in stable condition Plan: Admit back to floor for IV antibiotics Check cultures and adjust antibiotics appropriately Dressing change and wound check with orthopedics tomorrow Consider early OT for range of motion Close follow up with Orthopedics in clinic following discharge for wound check, suture removal and to check cultures Indications: The patient is a 49 year old woman with a right index finger abscess after being scratched by a cat . The risks and benefits of operative treatment, including but not limited to risk of damage to blood vessels, nerves, tendons, infection, recurrence, persistent pain or numbness, incomplete resolution of preoperative symptoms, or need for further surgery were discussed with the patient and they wished to proceed with surgery. Procedure: Once consent was obtained patient was brought back to the operating suite and placed in the operating table in a supine position. . Perioperative antibiotics and anesthesia was administered by the anesthesia team. A tourniquet was applied to the proximal aspect of the right upper extremity and the limb was prepped and draped in a standard surgical fashion. The limb was elevated exsanguinated with Esmarch bandage and the tourniquet inflated to 250 mm of mercury for a total tourniquet time of 0 minutes. I made a chevron shaped incision with the apex at the radial edge of the PIP flexion crease and passing right over the abscess. The incision was made through the skin the subcutaneous tissues. I dissected down to the level of the flexor tendon sheath both proximal and distal to the PIP joint. We immediately saw some white cloudy fluid which we cultured. I then used a 10 mL syringe with an Angiocath to copiously irrigate the abscess area. Once satisfied with our I&D the skin edges were loosely reapproximated with 5-0 nylon suture. A digital block was performed using some 0.5% plain Marcaine for postop pain control and a sterile dressing was applied. The patient appears to have tolerated the procedure well and with no complications. All digits were well vascularized conclusion of the case.
--- NOTE | 2024-11-12 11:38 | P.HPSUR_ITS ---
Pre-Procedural Eval Section A - 24 Hr Update-Section A only Date of Service: 11/12/24 The patient is an INPATIENT: No Changes since office visit: No Cold of Flu in the past 2 weeks, No New Medical Problems, No Changes in Medication and No Patient answered all questions The patient has been examined within 24 hours of the surgical procedure. The History & Physical has been completed within 30 days and I have reviewed it.: Yes Section B - Complete if H&P > 30 days Chief Complaint: Right index finger tenosynovitis Allergies: Allergies Allergy/AdvReac Type Severity Reaction Status Date / Time amlodipine (From [facility]) Allergy Swelling Verified 11/10/24 13:28 indomethacin Allergy Rash Verified 09/11/23 03:45 Plan I have reviewed the history and physical and performed a pertinent physical examination on my patient. No changes have occurred unless specified. Time Spent With Patient Time: Total time managing care of this patient today ____ minutes.
--- NOTE | 2024-11-12 14:50 | HO.PM.IMPN ---
Subjective Subjective Date of Service: 11/12/24 Interval History: right index finger cellulitis ,? abcess Review of Systems swelling seems slightly improving,less pain Review of Systems: Yes all other systems are reviewed and are negative Physical Exam Exam: Exam: Appearance: Alert.? Oriented X3.? cvs: rrr, [id number]. res: clear to auscultation ,no rhonchii or wheezing abd: no rebound or guarding ,nt, bs present. ext pulses present , no cyanosis . MS:right hand: Index finger edema more prominent over the PIP, tenderness to palpation, yellowish area over PIP (palm), limited flexion. Please see H and P PIC. neuro: axo3 , nonfocal. Vital Signs: Vital Signs: Last Vital Signs Temp 97.8 F 11/12/24 13:01 Pulse 70 11/12/24 13:01 Resp 16 11/12/24 13:01 BP 121/76 11/12/24 13:01 Pulse Ox 98 11/12/24 13:01 O2 Del Method Room Air 11/12/24 13:01 O2 Flow Rate 8 11/12/24 12:28 BMI result Body Mass Index 35.9 Objective Data Active Medications Acetaminophen (Acetaminophen 325 Mg Tablet) 975 mg PO Q6H PRN PRN Reason: Pain, Mild 1-3,fever,headache Allopurinol (Allopurinol 300 Mg Tablet) 300 mg PO DAILY PRN PRN Reason: Gout Atorvastatin Calcium (Atorvastatin Calcium 40 Mg Tablet) 40 mg PO BEDTIME ON LICENSE OF [facility] Last Admin: 11/11/24 20:10 Dose: 40 mg Documented By: LAYLA Calcium Carbonate (Calcium Carbonate 750 Mg Tab.Chew) 750 mg PO Q4H PRN PRN Reason: Heartburn Hydromorphone HCl (Hydromorphone Hcl 0.5 Mg/0.5 Ml Syringe) 0.5 mg IVPUSH Q4H PRN; Protocol PRN Reason: Pain, Severe (Pain Scale 7-10) Ampicillin Sodium/Sulbactam (Sodium 3 gm/ Sodium Chloride) 100 mls @ 200 mls/hr IV Q6H ON LICENSE OF [facility] Last Admin: 11/12/24 14:18 Dose: 200 mls/hr Documented By: REJI Levothyroxine Sodium (Levothyroxine Sodium 125 Mcg Tablet) 125 mcg PO DAILY@0600 ON LICENSE OF [facility] Last Admin: 11/12/24 05:40 Dose: 125 mcg Documented By: LAYLA Magnesium Hydroxide (Milk Of Magnesia 30 Ml Oral.Susp) 30 ml PO DAILY PRN PRN Reason: Constipation Melatonin (Melatonin 3 Mg Tablet) 6 mg PO BEDTIME PRN PRN Reason: Insomnia Multivitamins/Vitamin C (Multivitamin Tablet) 1 tab PO DAILY ON LICENSE OF [facility] Last Admin: 11/12/24 07:24 Dose: 1 tab Documented By: REJI Oxycodone HCl (Oxycodone Hcl Immed Release 5 Mg Tablet) 5 mg PO Q6H PRN PRN Reason: Pain, Moderate(Pain Scale 4-6) Sodium Chloride (0.9 % Sodium Chloride Flush 3 Ml Syringe) 3 ml IVFLUSH QSHIFT ON LICENSE OF [facility] Last Admin: 11/12/24 14:20 Dose: 3 ml Documented By: REJI Labs 11/11/24 05:36 11/12/24 05:38 Labs: Laboratory Results - last 24 hr 11/12/24 05:38 Anion Gap 16 Microbiology Microbiology Results: Microbiology 11/10/24 16:22 Blood Culture - Preliminary Blood - Venous No growth after 24 hours. 11/10/24 16:24 Blood Culture - Preliminary Blood - Venous No growth after 24 hours. Assessment and Plan (1) BERTRAM (acute kidney injury): Status: Acute (2) Hyperkalemia: Status: Acute (3) Abscess of right index finger: Status: Acute Assessment and Plan: Carole Love is a 49 y/o woman admitted with: Right index finger tenosynovitis, ?Associated abscess. Admit to [facility]. Start empiric IV antibiotic therapy with Unasyn. Orthopedic surgery consult-plan for I and D tomorrow Renal insufficiency/hyperkalemia: ?BERTRAM versus chronic and mild hyperkalemia. Received 1 L bolus and Lokelma in the ED. Hold benazepril. Creatinine improved to 1.3, hyperkalemia resolved. Hyperlipidemia. Continue statin. Hypothyroidism. Continue levothyroxine. History of gout. Continue allopurinol. Obesity, class 2. BMI 34.8 kg/m2. Weight loss. Normocytic anemia, likely chronic. Will obtain anemia workup. Continue to monitor. DVT prophylaxis: Currently low risk. Ambulating well. ongoing hospitalization for right index finger tenosynovitis treatment with IV antibiotics in the setting of multiple underlying comorbidities; will need evaluation by Orthopedic surgery Service. Quality Stroke Does the patient have a stroke diagnosis?: No VTE Prior VTE?: No VTE Risk Level:: Medical - low VTE Device Contraindication: Treatment Not Indicated VTE Drug Contraindication: Treatment Not Indicated
[2024-11-13 03:37] VITALS: BP 132/79; PULSE 65; RESP 18; TEMP 36.6; O2SAT 100
[2024-11-13] MEDS: 0.9 % Sodium Chloride Flush 3 ML SYRINGE IVFLUSH (07:36)
[2024-11-13 07:38] VITALS: BP 146/88; PULSE 57; RESP 18; TEMP 36.1; O2SAT 98
--- NOTE | 2024-11-13 08:34 | HO.POSTANES ---
Post Anesthesia Evaluation Post Anesthesia Evaluation Date of Service: 11/13/24 Vital Signs: Vital Signs Temp Pulse Resp BP Pulse Ox O2 Del Method 11/13/24 07:38 97.0 F 57 18 146/88 H 98 Room Air 11/13/24 03:37 98 F 65 18 132/79 100 Room Air 11/12/24 23:17 97.1 F 56 18 130/81 97 Room Air Anesthesia: General Mental Status: Awake Pain Control: Satisfactory Nausea/Vomiting: None Hydration: Adequate Anesthesia-Related Issues: No Anes. Related Issues
--- NOTE | 2024-11-13 08:45 | PM.PNORT ---
Subjective Subjective Date of Service: 11/13/24 Interval history: Postop day 1 status post right index finger I&D Patient resting comfortably in bed Reports pain has improved, states that she is unable to take most pain medication due to kidney issues No acute events overnight No other acute complaints or concerns at this time Physical Exam Vital Signs: Vital Signs: Last Vital Signs Temp 97.0 F 11/13/24 07:38 Pulse 57 11/13/24 07:38 Resp 18 11/13/24 07:38 BP 146/88 H 11/13/24 07:38 Pulse Ox 98 11/13/24 07:38 O2 Del Method Room Air 11/13/24 07:38 O2 Flow Rate 8 11/12/24 12:28 BMI result Body Mass Index 35.9 Extrem: Other: Dressing on right hand clean, dry, intact Once dressing is removed, incision is clean, dry, intact No active drainage at this time No further erythema No ongoing evidence of infection Patient is able to flex and extend the digits of the l right hand without difficulty Compartments soft, nontender Distal sensation intact Capillary refill brisk Procedures Date of Service Date of Service: 11/13/24 Progress Note: A&P Assessment and plan (1) Abscess of right index finger: Status: Acute Plan 1. Status post I and D of right index finger DOS 11/12/2024 Continue pain management If patient is medically cleared, no orthopedic indication for continued hospitalization and is cleared for discharge today from our perspective Patient is educated on daily dressing changes Keep incision site clean, dry, intact until follow-up Follow-up in our office next week Time Spent With Patient Time: Total time managing care of this patient today ____ minutes. Quality Stroke Does the patient have a stroke diagnosis?: No VTE Prior VTE?: No VTE Risk Level:: Medical - low VTE Device Contraindication: Treatment Not Indicated VTE Drug Contraindication: Treatment Not Indicated
--- NOTE | 2024-11-13 10:36 | PM.DS ---
DS: Providers Provider Date of Service: 11/13/24 Date of admission: 11/10/24 17:32 Date of discharge: 11/13/24 Primary care physician: Rima Espinoza MD Consults: 11/10/24 17:44 Consult to Orthopedics Routine Consulting Provider: [facility] Reason for consultation: Right index finger tenosynovitis, ?Abscess Has provider been notified: No 11/11/24 10:34 Consult to Infectious Diseases Routine Consulting Provider: [facility] Reason for consultation: Cellulitis / tinosynovitis Has provider been notified: No 11/13/24 07:30 Consult to Infectious Diseases Routine Consulting Provider: [facility] Reason for consultation: Right index finger tenosynovitis Attending physician on discharge: Teodoro Moreira Discharging clinician: Teodoro Moreira DS: Diagnosis Discharge Diagnosis (1) Abscess of right index finger: Status: Acute DS: Summary Hospital Course Hospital Course: HPI:49 years old woman with past medical history significant for essential hypertension amlodipine-benazepril, hyperlipidemia, gout and hypothyroidism presents to the emergency department complaining of right index finger pain and swelling over the last 4 days after being scratched by a cat. She has difficulty flexing this finger. She denied any discharges from the affected area. She also denied fever, chills, headache, chest pain, shortness on breath, abdominal pain, nausea, vomiting or diarrhea. She denied tobacco smoking, alcohol abuse or illicit drug use. In the ED, she was found to have stable vital signs. There is no leukocytosis or lactic acidosis. CRP is 3.18. Hemoglobin is 10.7 and platelets 425. Creatinine is 1.67 (last creatinine in 2021 was 1.02). There is mild hyperkalemia, 5.4. ECG showed normal sinus rhythm no peaked T-waves and no acute ischemic changes. ED tx: Normal saline 1 L bolus, vancomycin 2 g IV, ceftriaxone 1 g IV, Lokelma 5 g PO hospital course: 49 y/o woman admitted with:Right index finger cellulitis /Associated abscess: started empiric IV antibiotic therapy with Unasyn, blood cultures sent , seen by orthopedics:imaging(hand xray ) reviewed as well as patient has i&D Right index finger abscess: With the above management patient seems to be improved significantly, blood culture negative at 48 hours, wound culture also negative preliminary. Ortho recommended-plan dispo with p.o. antibiotics. As per ortho:Patient is educated on daily dressing changes,Keep incision site clean, dry, intact until follow-up,Follow-up in our office next week, ortho to arrange outpatient OT. Renal insufficiency/hyperkalemia: ?BERTRAM versus chronic and mild hyperkalemia. Received 1 L bolus and Lokelma in the ED. Hold benazepril. With the above management patient creatinine improved to 1.3, hyperkalemia resolved. Monitor BMP outpatient, consider outpatient Nephrology evaluation per PCP. htn: Her blood pressure medication amlodipine adjusted to 7.5 mg daily, hold benazepril for now until repeat BMP outpatient and subsequently further use of benazepril as per PCP if renal function allows. Normocytic anemia: Iron study and B12 and folate level seems fine. Monitor CBC outpatient, patient denies any melena or any history of bleeding. Further management as per PCP outpatient/consider outpatient anemia workup , monitor CBC. plan: moniter cbc and bmp outpatient in 1 week considering normocytic anemia and BERTRAM. Hold benazepril Amlodipine adjusted to 7.5 mg daily Complete Augmentin 875 mg p.o. b.i.d. for 10 days. Follow up with ortho outpatient. Above management discussed with the patient in detail length she understand and in agreement with the above plan, time spent 45 minute, all question answered, staff was present during conversation. Time Attestation Total time managing care of this patient today: 45 mintues. Discharge Coordination Time (in mins): 45 Quality: Safe Use of Opioids Does Pt have an Active Cancer Diagnosis on the Problem List?: No Quality: Stroke Does the patient have a stroke diagnosis?: No Physical Exam Exam: Exam: Appearance: Alert.? Oriented X3.. cvs: [id number], [id number] res: clear to auscultation ,no rhonchii or wheezing abd: no rebound or guarding ,nt, bs present. ext pulses present , no cyanosis,Patient is able to flex and extend the digits of the l right hand . No erythema or discharge, dressing is clean/dry. neuro: axo3 , nonfocal. Vital Signs: Vital Signs: Last Vital Signs Temp 97.0 F 11/13/24 07:38 Pulse 57 11/13/24 07:38 Resp 18 11/13/24 07:38 BP 146/88 H 11/13/24 07:38 Pulse Ox 98 11/13/24 07:38 O2 Del Method Room Air 11/13/24 07:38 O2 Flow Rate 8 11/12/24 12:28 BMI result Body Mass Index 35.9 DS: Data Data Completed and Pending Labs on day of discharge: Preliminary micro results at discharge 11/12/24 12:04 Routine Culture - Preliminary Finger Right Index No growth to date. 11/10/24 16:22 Blood Culture - Preliminary Blood - Venous No growth after 48 hours. 11/10/24 16:24 Blood Culture - Preliminary Blood - Venous No growth after 48 hours. Imaging Chest x-ray: Radiologist's impression: ITS Impressions Hand X-Ray 11/10/24 12:37 IMPRESSION: There is soft tissue swelling involving the second digit. There is evidence of faint periosteal new bone formation along the volar aspect of the proximal metadiaphysis the middle phalanx that could be related to infection or trauma. Osteoarthritis of the fifth digit. Discharge Plan Discharge Anticipated Discharge Date/Time: 11/13/24 10:19 Patient Disposition: Home, Self-Care Discharge Diagnosis: hand cellulitis /index finger abcess Referrals: Rima Espinzoa MD [Primary Care Provider, Medical] - 1 Week Henna Her MD [Physician, Hand Surgery] - 1 Week Discharge Medications: New acetaminophen 325 mg Tablet 975 mg PO Q6H PRN (Reason: Pain, Mild 1-3,Fever,Headache) Qty: 20 0RF amoxicillin-pot clavulanate 875-125 mg Tablet 1 tab PO Q12H Qty: 19 0RF amlodipine 5 mg tablet 7.5 mg PO DAILY Qty: 180 0RF Continued multivitamin Tablet 1 tab PO DAILY atorvastatin 40 mg Tablet 40 mg PO BEDTIME Qty: 30 0RF levothyroxine 125 mcg tablet 125 mcg PO DAILY@0600 allopurinol 300 mg tablet 300 mg PO DAILY PRN (Reason: Gout) colchicine 0.6 mg tablet 0.6 mg PO DAILY PRN (Reason: Gout) Discontinued amlodipine-benazepril 5-20 mg capsule 1 cap PO DAILY Discharge Orders: Discharge Order (Routine); Ordered 11/13/24 Ordered By: Teodoro Moreira Diet: Advance to usual diet Activity on Discharge: As tolerated Stand Alone Forms: Patient Portal Discharge page Print Language: Swedish Other Ambulatory Orders: Basic Metabolic Panel (Routine) Timeframe: 1 Week Facility: [facility] - Location: Laboratory Ordered By: Teodoro Moreira Complete Blood Count no Diff (Routine) Timeframe: 1 Week Facility: [facility] - Location: Laboratory Ordered By: Teodoro Moreira Activity Restrictions/Additional Instructions: Check cultures and adjust antibiotics appropriately,Patient is educated on daily dressing changes Keep incision site clean, dry, intact until follow-up. Consider early OT for range of motion -will be arranged by ortho outpatient Close follow up with Orthopedics in clinic following discharge for wound check, suture removal and to check cultures. Care Plan Goals: moniter cbc and bmp outpatient in 1 week considering normocytic anemia and BERTRAM. Hold benazepril Amlodipine adjusted to 7.5 mg daily Complete Augmentin 875 mg p.o. b.i.d. for 10 days. Follow up with ortho outpatient. Health Concerns: As above. Plan of Treatment: As above. Assessment: As above. Discharge Date/Time: 11/13/24 11:21
--- NOTE | 2024-11-13 11:00 | MHC.CM.PN ---
Patient medically cleared for dc home self care, private transport.
[2024-11-13 11:19] VITALS: BP 138/89; PULSE 75; RESP 18; TEMP 36.5; O2SAT 100
--- NOTE | 2024-11-30 15:31 | P.CDIM_ITS ---
PROVIDER RESPONSE TEXT: To clarify, the appropriate diagnosis supported by the clinical indicators: Acute renal failure QUERY TEXT: PHYSICIAN'S DOCUMENTATION REQUEST Date of Query: 11/30/2024 07:45 AM EDT Patient Name: Carole Love Admit Date: 11/10/2024 Dear Teodoro Moreira MD, A review of the medical record indicates additional documentation may be needed. Please review below and update the documentation accordingly. Clinical Indicators: BUN 34, Creatinine 1.67, eGFR 33 patient has documentation of renal insufficiency and also ? BERTRAM received IVF bolus Please clarify which of the following accurately represents the patient's renal status: Acute renal failure Other (explain) Clinically unable to determine (explain) Thank you, Salina Schwartz RN Use of terms such as suspected, likely, concern for, or probable (associated with a specific diagnosis that is being evaluated, monitored, or treated as if it exists) are acceptable and can be coded in the inpatient setting, when documented at the time of discharge. Please use your independent medical judgment in providing your response. THIS QUERY IS PART OF THE PERMANENT MEDICAL RECORD
== END 2024-11-13 11:21 | disposition home or self-care (01) | DRG 364 ==
LOC: HO.ED 16:33 → HO.EDOVER 17:49 → HO.S3 19:15
PROVIDERS: Nurse Practitioner; Orthopaedic Surgery; Physician Assistant; Physician Assistant Medical; Admitting Provider Internal Medicine; Emergency Provider Emergency Medicine Emergency Medical Services; PCP Internal Medicine; Visit Provider Internal Medicine
PROC: 0J9J0ZZ Drainage of Right Hand Subcutaneous Tissue and Fascia, Open Approach (ICD-10-PCS; principal; 2024-11-12 12:10)
DX: L02.511 Cutaneous abscess of right hand (principal); N17.9 Acute kidney failure, unspecified; D64.9 Anemia, unspecified; E03.9 Hypothyroidism, unspecified; I10 Essential (primary) hypertension; E87.5 Hyperkalemia; W55.03XA Scratched by cat, initial encounter; E78.5 Hyperlipidemia, unspecified; M10.9 Gout, unspecified; E66.812 Obesity, class 2; Z71.3 Dietary counseling and surveillance; Z68.34 Body mass index [BMI] 34.0-34.9, adult; Z79.890 Hormone replacement therapy; Z79.899 Other long term (current) drug therapy
CPT/HCPCS: 36415; 73120; 80048; 80051; 80053; 82607; 82728; 82746; 83540; 83605; 85025; 85045; 85652; 86140; 87040; 87070; 87205; 90715; 93005; 99221; 99285; J0295; J0665; J0696; J1100; J2003; J2250; J2704; J3010; J3373

== ENCOUNTER → 2024-11-10 13:28 | Outpatient (BNV) | payer OTHER, SELFPAY | PROVIDERS: Visit Provider Radiology Diagnostic Radiology | DX: R22.31 Localized swelling, mass and lump, right upper limb (principal) | CPT/HCPCS: 73120 ==

== ENCOUNTER → 2024-11-10 16:55 | Outpatient (BNV) | payer OTHER, SELFPAY | PROVIDERS: Admitting Provider Internal Medicine; Emergency Provider Emergency Medicine Emergency Medical Services; PCP Internal Medicine; Visit Provider Internal Medicine Cardiovascular Disease | DX: R94.31 Abnormal electrocardiogram [ECG] [EKG] (principal); E87.0 Hyperosmolality and hypernatremia | CPT/HCPCS: 93010 ==

== ENCOUNTER → 2024-11-10 17:32 | Outpatient (BNV) | payer OTHER, SELFPAY | PROVIDERS: Admitting Provider Internal Medicine; Emergency Provider Emergency Medicine Emergency Medical Services; PCP Internal Medicine; Visit Provider Physician Assistant | DX: L02.511 Cutaneous abscess of right hand (principal) | CPT/HCPCS: 99223; 99499 ==

== ENCOUNTER → 2024-11-10 17:32 | Outpatient (BNV) | payer OTHER, SELFPAY | PROVIDERS: Admitting Provider Internal Medicine; Emergency Provider Emergency Medicine Emergency Medical Services; PCP Internal Medicine; Visit Provider Internal Medicine | DX: L02.511 Cutaneous abscess of right hand (principal) | CPT/HCPCS: 99223; 99231; 99232; 99239 ==

== ENCOUNTER 2024-11-18 08:27 | Outpatient (AMB) | payer OTHER, SELFPAY ==
--- NOTE | 2024-11-18 08:29 | A.OFFVIS_ITS ---
Vital Signs 11/18/24 08:31 Height 5 ft 6 in Weight 225 lb BMI 36.3 Intake Visit Reasons: PO-Rt IF I&D, DOS 11/12/24 Intake Note: Carole is a 49 year old right hand dominant female who presents today for a post operative visit status post right index finger abscess I&D, DOS: 11/12/[address] Henna Her. Abscess was due to a cat scratch 11/06/24. She continues to take the Antibiotics & is doing well. There is some residual swelling, she would like to work on more aggressive ROM but she is concerned about breaking the stitches. Denies numbness and tingling. Allergies amlodipine (From [facility]) Allergy (Verified 11/18/24 08:32) Swelling indomethacin Allergy (Verified 11/18/24 08:32) Rash HPI HPI PO-Rt IF I&D, DOS 11/12/24: Details: Carole is a 49 year old right hand dominant female who presents today for a post operative visit status post right index finger abscess I&D, DOS: 11/12/[address] Henna Her. Abscess was due to a cat scratch 11/06/24. She continues to take the Antibiotics & is doing well. There is some residual swelling, she would like to work on more aggressive ROM but she is concerned about breaking the stitches. Denies numbness and tingling. [facility] Medical History (Updated 11/12/24 @ 11:36 by Lyn Barbour RN) Obesity (BMI 30.0-34.9) Uncontrolled hypertension Cerebral infarction Stroke Weakness of right upper extremity Hypertensive urgency Gout HTN (hypertension) Surgical History (Updated 11/18/24 @ 08:47 by Alisa Ferraro CMA) History of incision and drainage (11/12/24) History of lumpectomy of left breast History of hysterectomy Family History Mother Hypertension Stroke Social History Household Members: Family Housing: House Do you presently have visiting nurse or other home services: No Alcohol intake: never Comment: COUNTS CORRECT Patient Tobacco Use Status: Never used Tobacco Substance Use Type: Marijuana Advance Directives Date on File: 10/10/21 service: No Current occupational status: employed Review of Systems Const All systems reviewed & are unremarkable except as noted in HPI and below Physical Exam Vital Signs: BMI result Body Mass Index 36.3 Last Vital Signs Temp 97.0 F 11/13/24 07:38 Pulse 57 11/13/24 07:38 Resp 18 11/13/24 07:38 BP 146/88 H 11/13/24 07:38 Pulse Ox 98 11/13/24 07:38 O2 Del Method Room Air 11/13/24 07:38 O2 Flow Rate 8 11/12/24 12:28 BMI result Body Mass Index 35.9 Extrem Other: Dressing on right hand clean, dry, intact Once dressing is removed, incision is clean, dry, intact No active drainage at this time Proximal aspect of right index finger is edematous No further erythema No ongoing evidence of infection Patient is able to flex and extend the digits of the right hand somewhat, but lacks full range of motion of both flexion and extension Compartments soft, nontender Distal sensation intact Capillary refill brisk Assessment & Plan Assessment & Plan (1) Abscess of right index finger: Code(s): L02.511 - Cutaneous abscess of right hand Category: Medical Plan 1. Status post I and D of right index finger DOS 11/12/2024 Patient appears to be recovering well postoperatively Patient is educated about the typical recovery course At this time, patient is informed that we can not remove her sutures for 1 more week, as adequate healing has not yet taken place Patient can begin washing the incision site with soap and water in the sink of the shower, but should avoid all under water activities Patient can work on gentle range of motion of the right index finger, however should avoid heavy lifting or excessive range of motion Daily dressing changes Antibiotics refilled due to nature of previous infection Patient is amenable to this plan Follow-up in 1 week for wound check, anticipate suture removal at that time, sooner with any acute concerns Orders: Orders OT Evaluation and Treatment Today L02.511 - Cutaneous abscess of right hand Medications: Refilled amoxicillin-pot clavulanate 875-125 mg 1 tab PO Q12H 19 tabs 0RF Coding Level of Care Code Global (32536) Diagnoses Abscess of right index finger L02.511
[2024-11-18 08:31] VITALS: BMI 36.3
--- OUTSIDE RECORDS SUMMARY | 2024-11-18 08:39 | XMS_ITS | Clinical Summary ---
Author Organization [facility] it Address [address] [place] [address] Care Team Providers Care Health Navigator Name Role Phone Nidia Barrientos MD Primary Care Provider [phone] Surgical History Surgery Date Site/Laterality Comments HYSTERECTOMY [...] age to complete this topic Care Teams Health Navigator Relationship Specialty Start Date End Date Nidia Barrientos MD [address] [facility] [place] [address] PCP - General Internal Medicine 10/13/20
== END 2024-11-18 09:16 | disposition home or self-care (01) ==
LOC: HO.HOS 08:28
PROVIDERS: PCP Internal Medicine
DX: L02.511 Cutaneous abscess of right hand (principal)
CPT/HCPCS: 99024

== ENCOUNTER → 2024-11-18 08:27 | Outpatient (BNVA) | payer OTHER, SELFPAY | PROVIDERS: PCP Internal Medicine | DX: L02.511 Cutaneous abscess of right hand (principal); Z98.890 Other specified postprocedural states | CPT/HCPCS: 99212 ==

== ENCOUNTER 2024-11-25 08:28 | Outpatient (AMB) | payer OTHER, SELFPAY ==
[2024-11-25 08:32] VITALS: BMI 36.3
--- NOTE | 2024-11-25 08:32 | A.OFFVIS_ITS ---
Vital Signs 11/25/24 08:32 Height 5 ft 6 in Weight 225 lb BMI 36.3 Intake Visit Reasons: PO-Rt IF I&D, DOS 11/12/24 Intake Note: Carole is a 49 year old right hand dominant female who presents today post- operatively for a wound check status post right index finger abscess I&D, DOS: 11/12/[address] Her. At her last visit, she was referred to OT and advised to continue taking antibiotics. Today she reports OT wont be starting until Saturday. Patient states she self discontinued her antibiotics like a couple days ago due to causing a yeast infection. She confirms she did not call our office to notify us of this. She is not taking any pain medication at this time. Allergies amlodipine (From [facility]) Allergy (Verified 11/25/24 08:40) Swelling indomethacin Allergy (Verified 11/25/24 08:40) Rash amoxicillin- potassium clavulanate Adverse Reaction (Intermediate, Uncoded 11/25/24 08:50) vaginal yeast HPI HPI PO-Rt IF I&D, DOS 11/12/24: Details: Carole is a 49 year old right hand dominant female who presents today post- operatively for a wound check status post right index finger abscess I&D, DOS: 11/12/[address] Her. At her last visit, she was referred to OT and advised to continue taking antibiotics. Today she reports OT wont be starting until Saturday. Patient states she self discontinued her antibiotics like a couple days ago due to causing a yeast infection. She confirms she did not call our office to notify us of this. She is not taking any pain medication at this time. The patient states that the only symptom she continues to experience is a tightness in the right index finger, reports some mild discomfort with range of motion. Patient does report that her right index finger is still swollen [facility] Medical History (Updated 11/21/24 @ 00:02 by Isi Obregon) BERTRAM (acute kidney injury) Hyperkalemia Hyperkalemia Elevated serum creatinine Anemia Tenosynovitis Obesity (BMI 30.0-34.9) Uncontrolled hypertension Cerebral infarction Stroke Weakness of right upper extremity Hypertensive urgency Gout HTN (hypertension) Surgical History (Updated 11/18/24 @ 08:47 by Alisa Ferraro [facility]) History of incision and drainage (11/12/24) History of lumpectomy of left breast History of hysterectomy Family History Mother Hypertension Stroke Social History Household Members: Family Housing: House Do you presently have visiting nurse or other home services: No Alcohol intake: never Comment: COUNTS CORRECT Patient Tobacco Use Status: Never used Tobacco Substance Use Type: Marijuana Advance Directives Date on File: 10/10/21 service: No Current occupational status: employed Review of Systems Const All systems reviewed & are unremarkable except as noted in HPI and below Physical Exam Vital Signs: BMI result Body Mass Index 36.3 Last Vital Signs Temp 97.0 F 11/13/24 07:38 Pulse 57 11/13/24 07:38 Resp 18 11/13/24 07:38 BP 146/88 H 11/13/24 07:38 Pulse Ox 98 11/13/24 07:38 O2 Del Method Room Air 11/13/24 07:38 O2 Flow Rate 8 11/12/24 12:28 BMI result Body Mass Index 35.9 Extrem Other: incision on right index finger is clean, dry, intact No active drainage at this time Proximal aspect of right index finger is edematous No further erythema No ongoing evidence of infection Patient is able to flex and extend the digits of the right hand somewhat, but lacks full range of motion of both flexion and extension with the index finger only Compartments soft, nontender Distal sensation intact Capillary refill brisk Assessment & Plan Assessment & Plan (1) Abscess of right index finger: Code(s): L02.511 - Cutaneous abscess of right hand Category: Medical Plan 1. Status post I and D of right index finger DOS 11/12/2024 Patient appears to be recovering well postoperatively Patient is educated about the typical recovery course Sutures removed today without issue Patient can begin washing the incision site with soap and water in the sink of the shower, but should avoid all under water activities Patient can work on gentle range of motion of the right index finger, however should avoid heavy lifting or excessive range of motion Start OT on Saturday to work on range of motion of the hand Patient may leave the incision site open to air while at home, however should keep the dressing on when out and about Patient is amenable to this plan Follow-up in 2 weeks for wound check, sooner with any acute concerns Coding Level of Care Code Global (34258) Diagnoses Abscess of right index finger L02.511
--- OUTSIDE RECORDS SUMMARY | 2024-11-25 08:40 | XMS_ITS | Clinical Summary ---
Author Organization [facility] it Address [id number] [place] [id number] Care Team Providers Care Crust Sorter Name Role Phone Nidia Barrientos MD Primary Care Provider Surgical History Surgery Date Site/Laterality Comments HYSTERECTOMY [...] age to complete this topic Care Teams Crust Sorter Relationship Specialty Start Date End Date Nidia Barrientos MD 40 [facility] [place] [address] PCP - General Internal Medicine 10/13/20
== END 2024-11-25 09:11 | disposition home or self-care (01) ==
LOC: HO.HOS 08:29
PROVIDERS: PCP Internal Medicine
DX: L02.511 Cutaneous abscess of right hand (principal)
CPT/HCPCS: 99024

== ENCOUNTER → 2024-11-25 08:28 | Outpatient (BNVA) | payer OTHER, SELFPAY | PROVIDERS: PCP Internal Medicine | DX: L02.511 Cutaneous abscess of right hand (principal) | CPT/HCPCS: 99212 ==

== ENCOUNTER 2024-12-08 09:46 | Outpatient (AMB) | payer OTHER, SELFPAY ==
--- NOTE | 2024-12-08 09:52 | A.OFFVIS_ITS ---
Vital Signs 12/08/24 09:53 Height 5 ft 6 in Weight 225 lb BMI 36.3 Intake Visit Reasons: PO-Rt IF I&D, DOS 11/12/24 Intake Note: Carole is a 49 year old right hand dominant female who presents today post- operatively for a wound check status post right index finger abscess I&D, DOS: 11/12/[address] Her. At her last post-operative visit sutures were removed. She was advised she could work on gentle range of motion of the right index finger, however should avoid heavy lifting or excessive range of motion. She was notified she may leave the incision site open to air while at home, however should keep the dressing on when out and about. Patient reports today she had to stop antibiotics due to vaginal yeast. Patient is now having swelling. She has resumed her antibiotics. Allergies amlodip[place] ([place] [facility] [place] [place] Allergy (Verified 12/08/24 09:54) Swelling indomethacin Allergy (Verified 12/08/24 09:54) Rash amoxicillin- potassium clavulanate Adverse Reaction (Intermediate, Uncoded 12/08/24 09:54) vaginal yeast HPI HPI PO-Rt IF I&D, DOS 11/12/24: Details: Carole is a 49 year old right hand dominant female who presents today post- operatively for a wound check status post right index finger abscess I&D, DOS: 11/12/[address] Her. At her last post-operative visit sutures were removed. She was advised she could work on gentle range of motion of the right index finger, however should avoid heavy lifting or excessive range of motion. She was notified she may leave the incision site open to air while at home, however should keep the dressing on when out and about. Patient reports today she had to stop antibiotics due to vaginal yeast. Patient is now having swelling. She has resumed her antibiotics. [facility] Medical History (Updated 11/21/24 @ 00:02 by Isi Obregon) BERTRAM (acute kidney injury) Hyperkalemia Hyperkalemia Elevated serum creatinine Anemia Tenosynovitis Obesity (BMI 30.0-34.9) Uncontrolled hypertension Cerebral infarction Stroke Weakness of right upper extremity Hypertensive urgency Gout HTN (hypertension) Surgical History (Updated 11/18/24 @ 08:47 by Alisa Ferraro CMA) History of incision and drainage (11/12/24) History of lumpectomy of left breast History of hysterectomy Family History Mother Hypertension Stroke Social History Household Members: Family Housing: House Do you presently have visiting nurse or other home services: No Alcohol intake: never Comment: COUNTS CORRECT Patient Tobacco Use Status: Never used Tobacco Substance Use Type: Marijuana Advance Directives Date on File: 10/10/21 service: No Current occupational status: employed Review of Systems Const All systems reviewed & are unremarkable except as noted in HPI and below Physical Exam Vital Signs: BMI result Body Mass Index 36.3 Last Vital Signs Temp 97.0 F 11/13/24 07:38 Pulse 57 11/13/24 07:38 Resp 18 11/13/24 07:38 BP 146/88 H 11/13/24 07:38 Pulse Ox 98 11/13/24 07:38 O2 Del Method Room Air 11/13/24 07:38 O2 Flow Rate 8 11/12/24 12:28 BMI result Body Mass Index 35.9 Extrem Other: incision on right index finger is clean, dry, intact No active drainage at this time Proximal aspect of right index finger is edematous No further erythema No ongoing evidence of infection Patient is able to flex and extend the digits of the right hand somewhat, but lacks full range of motion of both flexion and extension with the index finger only Compartments soft, nontender Distal sensation intact Capillary refill brisk Assessment & Plan Assessment & Plan (1) Abscess of right index finger: Code(s): L02.511 - Cutaneous abscess of right hand Category: Medical Plan 1. Status post I and D of right index finger DOS 11/12/2024 Patient appears to be recovering well postoperatively Patient is educated about the typical recovery course Antibiotics refilled due to the patient's increase in swelling from previous evaluation, and due to the fact that the patient prematurely discontinued her antibiotics Patient can begin washing the incision site with soap and water in the sink of t he shower, but should avoid all under water activities Patient can work on gentle range of motion of the right index finger, however should avoid heavy lifting or excessive range of motion Patient may leave the incision site open to air at this time, as it is well healed Patient is amenable to this plan Follow-up in 1 weeks for wound check, sooner with any acute concerns Medications: New amoxicillin-pot clavulanate 875-125 mg 1 tab PO BID 20 tabs 0RF 10 days Coding Level of Care Code Global (30641) Diagnoses Abscess of right index finger L02.511
[2024-12-08 09:53] VITALS: BMI 36.3
--- OUTSIDE RECORDS SUMMARY | 2024-12-08 10:54 | XMS_ITS | Clinical Summary ---
Author Organization [facility] it Address [address] [place] [address] Care Team Providers Care Desktop Publishing Operator Name Role Phone Nidia Barrientos MD Primary Care Provider [phone] Surgical History Surgery Date Site/Laterality Comments HYSTERECTOMY [...] age to complete this topic Care Teams Desktop Publishing Operator Relationship Specialty Start Date End Date Nidia Barrientos MD [address] [facility] [address] PCP - General Internal Medicine 10/13/20
== END 2024-12-08 10:15 | disposition home or self-care (01) ==
LOC: HO.HOS 09:47
PROVIDERS: PCP Internal Medicine
DX: L02.511 Cutaneous abscess of right hand (principal)
CPT/HCPCS: 99024

== ENCOUNTER → 2024-12-08 09:46 | Outpatient (BNVA) | payer OTHER, SELFPAY | PROVIDERS: PCP Internal Medicine | DX: Z47.89 Encounter for other orthopedic aftercare (principal) | CPT/HCPCS: 99212 ==

== ENCOUNTER 2024-12-15 09:38 | Outpatient (AMB) | payer OTHER, SELFPAY ==
[2024-12-15 10:01] VITALS: BMI 36.3
--- NOTE | 2024-12-15 10:01 | A.OFFVIS_ITS ---
Vital Signs 12/15/24 10:01 Height 5 ft 6 in Weight 225 lb BMI 36.3 Intake Visit Reasons: PO-Rt IF I&D, DOS 11/12/24 Intake Note: Carole is a 49 year old right hand dominant female who presents today post- operatively for a wound check status post right index finger abscess I&D, DOS: 11/12/[address] Her. At her last post-op visit she was instructed to take antibiotics as prescribed. Patient was advised to begin washing with soap and water and to begin gentle ROM. Today, patient reports she is doing well. She continues taking her antibiotics. [facility] Allergy (Verified 12/15/24 10:01) Swelling indomethacin Allergy (Verified 12/15/24 10:01) Rash amoxicillin- potassium clavulanate Adverse Reaction (Intermediate, Uncoded 12/15/24 10:01) vaginal yeast HPI HPI PO-Rt IF I&D, DOS 11/12/24: Details: Carole is a 49 year old right hand dominant female who presents today post- operatively for a wound check status post right index finger abscess I&D, DOS: 11/12/[address] Her. At her last post-op visit she was instructed to take antibiotics as prescribed. Patient was advised to begin washing with soap and water and to begin gentle ROM. Today, patient reports she is doing well. She continues taking her antibiotics. Reports that pain has improved dramatically since previous evaluation, she is able to make a closed fist, and both redness and swelling have gone down significantly. [facility] Medical History (Updated 11/21/24 @ 00:02 by Isi Obregon) BERTRAM (acute kidney injury) Hyperkalemia Hyperkalemia Elevated serum creatinine Anemia Tenosynovitis Obesity (BMI 30.0-34.9) Uncontrolled hypertension Cerebral infarction Stroke Weakness of right upper extremity Hypertensive urgency Gout HTN (hypertension) Surgical History (Updated 11/18/24 @ 08:47 by Alisa Ferraro CMA) History of incision and drainage (11/12/24) History of lumpectomy of left breast History of hysterectomy Family History Mother Hypertension Stroke Social History Household Members: Family Housing: House Do you presently have visiting nurse or other home services: No Alcohol intake: never Comment: COUNTS CORRECT Patient Tobacco Use Status: Never used Tobacco Substance Use Type: Marijuana Advance Directives Date on File: 10/10/21 service: No Current occupational status: employed Review of Systems Const All systems reviewed & are unremarkable except as noted in HPI and below Physical Exam Vital Signs: BMI result Body Mass Index 36.3 Last Vital Signs Temp 97.0 F 11/13/24 07:38 Pulse 57 11/13/24 07:38 Resp 18 11/13/24 07:38 BP 146/88 H 11/13/24 07:38 Pulse Ox 98 11/13/24 07:38 O2 Del Method Room Air 11/13/24 07:38 O2 Flow Rate 8 11/12/24 12:28 BMI result Body Mass Index 35.9 Extrem Other: incision on right index finger is clean, dry, intact No active drainage at this time Proximal aspect of right index finger is minimally edematous, significantly improved from previous evaluation No further erythema No ongoing evidence of infection Patient is able to flex and extend the digits of the right hand fully and without difficulty Compartments soft, nontender Distal sensation intact Capillary refill brisk Assessment & Plan Assessment & Plan (1) Abscess of right index finger: Code(s): L02.511 - Cutaneous abscess of right hand Category: Medical Plan 1. Status post I and D of right index finger DOS 11/12/2024 Patient appears to be recovering well postoperatively Patient is educated about the typical recovery course Finish current course of antibiotics, no refill indicated at this time Patient can begin washing the incision site with soap and water in the sink of the shower, but should avoid all under water activities Patient can work on gentle range of motion of the right index finger, however should avoid heavy lifting Patient may leave the incision site open to air at this time, as it is well healed Patient is amenable to this plan Follow-up in 2 weeks for wound check, sooner with any acute concerns Coding Level of Care Code Global (18078) Diagnoses Abscess of right index finger L02.511
--- OUTSIDE RECORDS SUMMARY | 2024-12-15 10:17 | XMS_ITS | Clinical Summary ---
Author Organization [facility] it Address [id number] [place] [id number] Care Team Providers Care Show Operations Supervisor Name Role Phone Nidia Barrientos MD Primary Care Provider [phone] Surgical History Surgery Date Site/Laterality Comments HYSTERECTOMY [...] age to complete this topic Care Teams Show Operations Supervisor Relationship Specialty Start Date End Date Nidia Barrientos MD 40 [facility] [place] [address] PCP - General Internal Medicine 10/13/20
== END 2024-12-15 10:18 | disposition home or self-care (01) ==
LOC: HO.HOS 09:39
PROVIDERS: PCP Internal Medicine
DX: L02.511 Cutaneous abscess of right hand (principal)
CPT/HCPCS: 99024

== ENCOUNTER → 2024-12-15 09:38 | Outpatient (BNVA) | payer OTHER, SELFPAY | PROVIDERS: PCP Internal Medicine | DX: L02.511 Cutaneous abscess of right hand (principal) | CPT/HCPCS: 99212 ==

== ENCOUNTER 2024-12-25 07:59 | Outpatient (RCR) | payer OTHER, SELFPAY ==
--- NOTE | 2024-11-27 13:45 | MHC.OT.EP ---
[facility] Office [address] [facility] [phone] F: [phone] F: [phone] Occupational Therapy Plan of Care Patient Name: Carole Love Date of Evaluation: 11/27/24 Diagnosis: Abscess of R IF Pain Location: Pain Score: Pain Scale Used: Numeric (0 - 10) Aggravating Factors: Alleviating Factors: Assessment: Pt is a 49 yr old R hand dominant female who is here due to an infection (I&D) after being bit by a cat on 11/06 ; she waited a few days and when the sx's worsened she went to the ED and had I & D Surgery due to an infection. Pt had a follow up w/ the PA who removed her stitiches and referred her to therapy. She presents today w/ edema of PIP J , decreased ROM and strength of her R IF / hand . Pt would benefit from skilled OT Therapy to address these deficits and RPLOF Frequency and Duration: The patient will be seen 2 xs a week for 2 weeks Short Term Goals: SEE BELOW Mcc Goals: Pt will be compliant w/ her HEP Pt's edema of PIP J will be 7.5 cm Pt will have MARIA of her R IF of 220 Treatment Plan: Therapeutic Exercise Therapeutic Activity Home Exercise Program Splinting Neuro Re-ed Patient Education Desensitization/Sensory Re-ed Edema Control ADL Training Ultrasound NMES Iontophoresis Paraffin Fluidotherapy MHP Cold Packs Joint Mobilization Soft Tissue Mobilization Kinesiotaping Electronically Signed By: Rxoanne Evangelista OTR/L Please Sign and return to therapist. Thank you once again for your referral.
--- NOTE | 2024-12-25 08:34 | MHC.OT.DC ---
[facility] Office [address] [facility] [facility] [address] [facility] [phone] F: [phone] F: [phone] Occupational Therapy Discharge Note Patient Name: Carole Love Provider: Monty Sibley Diagnosis: Abscess of R IF Date of Surgery: 11/27/24 Date of Evaluation: 11/27/24 Date of Discharge: Treatments to Date: 8 Cancellations to Date: No Shows to Date: Discharge Status: Achieved Goals Improved Function Independent with HEP Discharge Summary: Pt tolerated therapy well today; She has MET her therapy goals and agrees to being d/charged today. She will continue w/ her HEP in order to continue to regain ROM and functional use of her hand Electronically Signed By: Roxanne Evangelista OTR/L Reviewed/agree with student documentation: Therapist: Please Sign and return to therapist, thank you for your referral.
== END 2025-02-17 09:35 | disposition home or self-care (01) ==
LOC: HO.OT 07:59
PROVIDERS: PCP Internal Medicine
DX: L02.511 Cutaneous abscess of right hand (principal)
CPT/HCPCS: 97035; 97110; 97140; 97165; 97530; 97535

== ENCOUNTER 2024-12-29 13:49 | Outpatient (AMB) | payer OTHER, SELFPAY ==
--- NOTE | 2024-12-29 13:51 | MHC.OFFVIS ---
Vital Signs 12/29/24 13:52 Height 5 ft 6 in Weight 225 lb BMI 36.3 Intake Visit Reasons: PO-Rt IF I&D, DOS 11/12/24 Intake Note: Carole is a 49 year old right hand dominant female who presents today post-operatively for a wound check status post Right Index Finger Abscess I&D, DOS: 11/12/[address] Her. At her last post-op visit she was advised to finish antibiotic treatment and to begin washing her incision. Patient was reminded to avoid underwater activities and to begin gentle ROM. Patient reports she has completed OT. She continues taking antibiotics as prescribed. Allergies amlodipine (From [facility]) Allergy (Verified 12/29/24 13:54) Swelling indomethacin Allergy (Verified 12/29/24 13:54) Rash amoxicillin- potassium clavulanate Adverse Reaction (Intermediate, Uncoded 12/29/24 13:54) vaginal yeast HPI HPI PO-Rt IF I&D, DOS 11/12/24: Details: Carole is a 49 year old right hand dominant female who presents today post-operatively for a wound check status post Right Index Finger Abscess I&D, DOS: 11/12/[address] Her. At her last post-op visit she was advised to finish antibiotic treatment and to begin washing her incision. Patient was reminded to avoid underwater activities and to begin gentle ROM. Patient reports she has completed OT. She continues taking antibiotics as prescribed. Patient reports that her range of motion has improved dramatically since previous evaluation, and then she has no ongoing pain. No other acute complaints or concerns this time. [facility] Medical History (Updated 11/21/24 @ 00:02 by Isi Obregon) BERTRAM (acute kidney injury) Hyperkalemia Hyperkalemia Elevated serum creatinine Anemia Tenosynovitis Obesity (BMI 30.0-34.9) Uncontrolled hypertension Cerebral infarction Stroke Weakness of right upper extremity Hypertensive urgency Gout HTN (hypertension) Surgical History (Updated 11/18/24 @ 08:47 by Alisa Ferraro CMA) History of incision and drainage (11/12/24) History of lumpectomy of left breast History of hysterectomy Family History Mother Hypertension Stroke Social History Household Members: Family Housing: House Do you presently have visiting nurse or other home services: No Alcohol intake: never Comment: COUNTS CORRECT Patient Tobacco Use Status: Never used Tobacco Substance Use Type: Marijuana Advance Directives Date on File: 10/10/21 service: No Current occupational status: employed Review of Systems Const All systems reviewed & are unremarkable except as noted in HPI and below Physical Exam Vital Signs: BMI result Body Mass Index 36.3 Last Vital Signs Temp 97.0 F 11/13/24 07:38 Pulse 57 11/13/24 07:38 Resp 18 11/13/24 07:38 BP 146/88 H 11/13/24 07:38 Pulse Ox 98 11/13/24 07:38 O2 Del Method Room Air 11/13/24 07:38 O2 Flow Rate 8 11/12/24 12:28 BMI result Body Mass Index 35.9 Extrem Other: incision on right index finger is clean, dry, intact No active drainage at this time Proximal aspect of right index finger is no longer edematous, significantly improved from previous evaluation No further erythema No ongoing evidence of infection Patient is able to flex and extend the digits of the right hand fully and without difficulty Compartments soft, nontender Distal sensation intact Capillary refill brisk Assessment & Plan Assessment & Plan (1) Abscess of right index finger: Code(s): L02.511 - Cutaneous abscess of right hand Category: Medical Plan 1. Status post I and D of right index finger DOS 11/12/2024 Patient appears to be recovering well postoperatively Patient is educated about the typical recovery course No further antibiotics indicated Patient may begin a gradual return back to full normal activity at this time Patient may leave the incision site open to air at this time, as it is well healed Patient is amenable to this plan Follow-up as needed with any acute concerns Coding Level of Care Code Global (73596) Diagnoses Abscess of right index finger L02.511
[2024-12-29 13:52] VITALS: BMI 36.3
--- OUTSIDE RECORDS SUMMARY | 2024-12-29 16:31 | XMS_ITS | Clinical Summary ---
Author Organization [facility] it Address [address] [place] [id number] Care Team Providers Care Drilling Assistant Name Role Phone Nidia Barrientos MD Primary Care Provider [phone] Surgical History Surgery Date Site/Laterality Comments HYSTERECTOMY [...] (2 - Td or Tdap) 05/21/2018 05/21/2008 Depression Screening 04/22/2024 COVID-19 Vaccine ( - 2023-2 5 season) 2024 Influenza Vaccine (#1) 2024 HIB Vaccines Aged [...] age to complete this topic Care Teams Drilling Assistant Relationship Specialty Start Date End Date Nidia Barrientos MD [address] [facility] [place] [address] PCP - General Internal Medicine 10/13/20
== END 2024-12-29 14:13 | disposition home or self-care (01) ==
LOC: HO.HOS 13:49
PROVIDERS: PCP Internal Medicine
DX: L02.511 Cutaneous abscess of right hand (principal)
CPT/HCPCS: 99024

== ENCOUNTER → 2024-12-29 13:49 | Outpatient (BNVA) | payer OTHER, SELFPAY | PROVIDERS: PCP Internal Medicine | DX: L02.511 Cutaneous abscess of right hand (principal) | CPT/HCPCS: 99212 ==